=== PATIENT | female | born 1945 | race Caucasian/White ===

== ENCOUNTER 2017-04-06 10:27 | Emergency (ER) | payer MEDICARE, BC ==
[2017-04-06 11:37] LABS: BASOPHILS % (AUTO) 0.5 %; HCT - HEMATOCRIT 32.1 % (37.0-47.0); HGB - HEMOGLOBIN 11.1 g/dL (12.0-16.0); LYMPHOCYTES # (AUTO) 1.2 10^3/uL (1.5-3.5); LYMPHOCYTES % (AUTO) 54.3 %; MEAN CORPUSCULAR HGB CONC 34.6 g/dL (32.0-36.0); MEAN CORPUSCULAR VOLUME 101.1 fL (81.0-99.0); MEAN PLATELET VOLUME 7.5 fL (7.9-10.8); MONOCYTES # (AUTO) 0.1 10^3/uL (0.0-1.0); NEUTROPHILS # (AUTO) 0.9 10^3/uL (1.5-6.6); NEUTROPHILS % (AUTO) 40.2 %; NUCLEATED RED BLOOD CELLS AUTO 0.1 /100WBC; RED BLOOD COUNT 3.17 10^6/uL (4.20-5.40); RED CELL DISTRIBUTION WIDTH 15.1 % (12.0-15.0); UNCORRECTED WHITE BLOOD COUNT 2.3 x10^3/uL; WHITE BLOOD COUNT 2.3 x10^3/uL (4.8-10.8)
[2017-04-06 11:53] LABS: ALBUMIN/GLOBULIN RATIO 1.3 (1.0-2.2); BILIRUBIN,TOTAL 0.7 mg/dL (0.2-1.0); CALCIUM 8.7 mg/dL (8.5-10.3); CREATININE 0.7 mg/dL (0.4-1.0); POTASSIUM 3.9 mmol/L (3.5-5.0); TOTAL PROTEIN 6.8 g/dL (6.7-8.2)
--- NOTE | 2017-04-06 12:18 | CT Preliminary Report ---
Exam: CT Head W/O IMPRESSION: 1. No acute intracranial abnormality evident. No intracranial hemorrhage, space-occupying lesion, or obvious CT signs of acute infarct. Consider brain MRI, if appropriate. 2. Mild generalized atrophy and mild chronic white matter disease. [facility] SITE ID: [id number]
--- NOTE | 2017-04-06 12:20 | CT Report ---
EXAM: CT HEAD EXAM DATE: 04/06/2017 11:36 AM. CLINICAL HISTORY: Right facial droop. COMPARISON: None. TECHNIQUE: Multiaxial CT images were obtained from the foramen magnum to the vertex. IV contrast: Non e. Reformats: Coronal. In accordance with CT protocol optimization, one or more of the following dose reduction techniques w ere utilized for this exam: automated exposure control, adjustment of mA and/or KV based on patient s ize, or use of iterative reconstructive technique. FINDINGS: Parenchyma: No intraparenchymal hemorrhage. No focal mass effect, midline shift, or CT signs of acut e infarct. Mild generalized cerebral volume loss. Mild patchy periventricular and subcortical white m atter hypodensities, compatible with chronic ischemic microangiopathy. Moser-white differentiation is otherwise distinct. Extraaxial Spaces: Mildly prominent compatible with generalized atrophy. No subdural or epidural laila ections identified. Ventricles: Normal in size and position. Sinuses: A single opacified posterior right ethmoid air cell. Otherwise the visualized paranasal sinu ses, mastoid air cells, and middle ear cavities are clear. Bones: No evidence of fracture or calvarial defect. IMPRESSION: 1. No acute intracranial abnormality evident. No intracranial hemorrhage, space-occupying lesion, or obvious CT signs of acute infarct. Consider brain MRI, if appropriate. 2. Mild generalized atrophy and mild chronic white matter disease. [facility] Referring Provider Line: [phone] SITE ID: [id number]
[2017-04-06 12:33] VITALS: BP 162/48
[2017-04-06] MEDS ORDERED: predniSONE 20 MG TABLET PO STA (13:19)
[2017-04-06 13:22] LABS: PLATELET ESTIMATE, MANUAL DECREASED (<130,000) (NORMAL)
[2017-04-06] MEDS ORDERED: predniSONE 20 MG TABLET ONE (13:40)
--- NOTE | 2017-04-06 14:03 | ED Physician Documentation ---
PD HPI FOCAL NEURO - Stated complaint Stated Complaint: JAW PX/NUMBNESS - Chief complaint Chief Complaint: Neuro - History obtained from History obtained from: Patient, Family (sister) - History of Present Illness Timing - onset: How many weeks ago (2) Timing - details: Still present Severity of deficit: Mild Weakness: Face Associated symptoms: Headache Baseline status: positive: A&OX3, ambulatory, indep Similar symptoms before: Has not had sx before - Additional information Additional information: The patient is a pleasant 71-year-old female who complains of "my TMJ." She reports discomfort in her right temporomandibular area for the past 2 weeks, with associated right occipital headaches. She has noticed right facial weakness, including slowness of her right eyelid to blink. This morning she noticed decreased sensation in her right lower lip. She denies any recent fever , difficulty swallowing, change in her vision, or numbness or weakness of her extremities. She denies history of similar symptoms in the past. Review of Systems Constitutional: denies: Fever, Fatigue Eyes: denies: Decreased vision Ears: reports: Ear pain (She denies ear pain currently, but reports having discomfort in her right ear early on with the onset of her symptoms.). denies: Tinnitus/ringing Nose: denies: Congestion Throat: denies: Dental pain / toothache, Sore throat Cardiac: denies: Chest pain / pressure Respiratory: denies: Dyspnea, Cough GI: denies: Abdominal Pain, Nausea, Vomiting : denies: Dysuria Skin: denies: Rash Musculoskeletal: denies: Neck pain, Extremity swelling Neurologic: reports: Focal weakness (right face.), Numbness (Reports decreased sensation of her right face at her lower lip.), Headache (Mild right occipital headache.). denies: Difficulty speaking, Altered mental status PD PAST MEDICAL HISTORY - Past Medical History Past Medical History: Yes Cardiovascular: None Respiratory: None Neuro: None Endocrine/Autoimmune: None Other Past Medical History: tmj hx and mouth teeth problems - Past Surgical History Past Surgical History: Yes General: Appendectomy HEENT: Tonsil/Adenoidectomy - Present Medications Home Medications: Ambulatory Orders Medication Instructions Recorded Confirmed Fexofenadine HCl [[place] Allergy] 0 mg PO DAILY 04/06/17 04/06/17 Prednisone 10 mg PO DAILY #40 tablet 04/06/17 - Allergies Allergies/Adverse Reactions: Allergies Allergy/AdvReac Type Severity Reaction Status Date / Time amoxicillin Allergy Unknown Verified 04/06/17 10:37 latex Allergy Unknown Verified 04/06/17 10:37 paradex Allergy Unknown Uncoded 04/06/17 10:37 - Social History Does the pt smoke?: No Smoking Status: Never smoker Does the pt drink ETOH?: Yes Does the pt have substance abuse?: No - POLST Patient has POLST: No PD ED PE NORMAL - Vitals Vital signs reviewed: Yes (Systolic hypertension.) - General General: Alert and oriented X 3, Well developed/nourished - HEENT HEENT: Atraumatic, PERRL, EOMI, Ears normal, Pharynx benign - Neck Neck: Supple, no meningeal sign, No adenopathy, No JVD - Cardiac Cardiac: RRR - Respiratory Respiratory: No respiratory distress, Clear bilaterally - Abdomen Abdomen: Soft, Non tender - Back Back: No CVA TTP - Derm Derm: No rash - Extremities Extremities: No edema, No calf tenderness / cord - Neuro Neuro: Alert and oriented X 3, Normal speech, Other (There is a mild right facial droop, including involvement of the right forehead musculature. There is barely detectable decrease in light touch sensation on the right side of the lower face. Neurologic exam is otherwise intact and equal bilaterally.) NIHSS - Time Time: 08:30 - Level of Consciousness Level of consciousness: (0) Alert, Keenly responsive LOC Questions: (0) Answers both Q's correct LOC Commands: (0) Performs both correctly - Gaze Best Gaze: (0) Normal - Visual Visual: (0) No loss - Facial Palsy Facial Palsy: (2) Partial paralysis - Motor Arms (both separate) Motor Arm (right): (0) No drift Motor Arm (left): (0) No drift - Motor Legs (both separate) Motor Leg (right): (0) No drift Motor Leg (left): (0) No drift - Limb Ataxia Limb Ataxia: (0) Absent - Sensory Sensory: (0) Normal - Best Language Best Language: (0) No aphasia - Dysarthria Dysarthria: (0) Normal - Extinction and Inattention (formally neg Extinction and inattention: (0) No abnormality - Total Score/Results Total Score/Result: 2 Results - Vitals Vitals: Oxygen O2 Source Room air - Labs Labs: Laboratory Tests 04/06/17 04/06/17 11:26 11:26 WBC 2.3 L RBC 3.17 L Hgb 11.1 L Hct 32.1 L MCV 101.1 H MCH 35.0 H MCHC 34.6 RDW 15.1 H Plt Count 120 L MPV 7.5 L Neut # 0.9 L Lymph # 1.2 L [place] # 0.1 Eos # 0.0 Baso # 0.0 Absolute Nucleated RBC 0.00 Nucleated RBCs 0.1 Manual Slide Review Indicated Platelet Estimate DECREASED (<130,000) RBC Morph Micro Appear 1+ SCHISTOCYTES Sodium 139 Potassium 3.9 Chloride 104 Carbon Dioxide 27 Anion Gap 8.0 BUN 15 Creatinine 0.7 Estimated GFR (MDRD) 82 L Glucose 102 H Calcium 8.7 Total Bilirubin 0.7 AST 22 ALT 18 Alkaline Phosphatase 90 Total Protein 6.8 Albumin 3.9 Globulin 2.9 Albumin/Globulin Ratio 1.3 Lipase 29 - Rads (name of study) Head CT w/o Radiology: Prelim report reviewed, EMP read contemporaneously, See rad report ( 1 1. No acute intracranial abnormality evident. No intracranial hemorrhage, space-occupying lesion, or obvious CT signs of acute infarct. Consider brain MRI if appropriate. 2. Mild generalized atrophy and mild chronic white matter disease.) PD MEDICAL DECISION MAKING - ED course Complexity details: reviewed results, re-evaluated patient, considered differential, d/w patient, d/w family ED course: The patient's presentation is most consistent with Valdivia's palsy. CVA was considered, but is unlikely given the patient's overall presentation, including involvement of the right forehead musculature. A head CT without contrast is unremarkable. Examination of the right ear canal and tympanic membrane on normal. Treatment in the emergency department included administration of prednisone 60 mg orally. She is being discharged with prescription for prednisone. I discussed with her and her sister expected course of illness, outpatient follow- up, as well as potentially worrisome signs or symptoms that should prompt reevaluation in the emergency department. Departure - Departure Disposition: 01 Home, Self Care Clinical Impression: Valdivia's palsy Condition: Stable Instructions: ED [place] Palsy Prescriptions: Prednisone 10 mg PO DAILY #40 tablet Comments: 1. Take prednisone daily as prescribed for a total of 10 days. 2. Tape your eyelid closed before going to sleep, to protect your eye from drying out. 3. Follow-up with your primary physician upon returning to [place]. 4. Return to the emergency department if you develop increasing numbness, weakness, headache, fever, or otherwise worsening symptoms. Discharge Date/Time: 04/06/17 14:25
== END 2017-04-06 14:25 | disposition home or self-care (01) ==
LOC: ED 10:27
DX: G51.0 Bell's palsy (principal); Z87.820 Personal history of traumatic brain injury
CPT/HCPCS: 36415; 70450; 80053; 83690; 85025; 99283; J7512

== ENCOUNTER 2017-10-29 18:59 | Emergency (ER) | payer MEDICARE, BC ==
[2017-10-29 19:50] VITALS: BP 145/73
== END 2017-10-29 20:04 | disposition left against medical advice (07) ==
LOC: ED 18:59
DX: R50.9 Fever, unspecified (principal); R22.9 Localized swelling, mass and lump, unspecified; Z92.21 Personal history of antineoplastic chemotherapy; Z53.21 Procedure and treatment not carried out due to patient leaving prior to being seen by health care provider

== ENCOUNTER 2017-11-02 20:14 | Inpatient (IN) | payer MEDICARE, BC ==
[2017-11-02] MEDS ORDERED: CEFEPIME 2 GM in SODIUM CHLORIDE 0.9% MINIBAG 100 ML IV STA (21:06)
[2017-11-02] MEDS ORDERED: metroNIDAZOLE 500 MG/100 ML 500 MG/100 ML BAG IV ONE (21:06)
[2017-11-02] MEDS ORDERED: VANCOMYCIN INJ 1.5 GM in SODIUM CHLORIDE 0.9% 500 ML IV STA (21:06)
[2017-11-02] MEDS ORDERED: SODIUM CHLORIDE 0.9% 1,000 ML IV ONE (21:06)
--- NOTE | 2017-11-02 21:10 | ED Physician Documentation ---
History of Present Illness - Stated complaint Stated Complaint: FEVER - Chief complaint Chief Complaint: Fever - History obtained from History obtained from: Patient - History of Present Illness Timing: Other (This is a iain 71-year-old woman with history of AML undergoing treatment and she has been neutropenic. She bit her cheek 6 days ago and the next day started developed cheek swelling and fevers. She has had a fever every day and did receive 2 g of cefepime in the [facility] clinic today. The fevers persistent and high. She also has some drainage from her right tunneled catheter. No cough urinary complaints. She did have one episode of diarrhea but it was a single episode that she thinks was related to anxiety and is now gone.) Review of Systems Ten Systems: 10 systems reviewed and negative Constitutional: reports: Fever, Chills, Fatigue Nose: denies: Rhinorrhea / runny nose, Congestion Cardiac: denies: Chest pain / pressure, Palpitations Respiratory: denies: Dyspnea, Cough GI: denies: Abdominal Pain, Nausea, Vomiting PD PAST MEDICAL HISTORY - Past Medical History Cardiovascular: None Respiratory: None Neuro: None Endocrine/Autoimmune: None - Past Surgical History Past Surgical History: Yes General: Appendectomy HEENT: Tonsil/Adenoidectomy - Present Medications Home Medications: Ambulatory Orders Medication Instructions Recorded Confirmed Cholecalciferol (Vitamin D3) 2,000 unit PO DAILY 07/17/17 11/02/17 [Vitamin D3] Acyclovir 400 mg PO DAILY 10/10/17 11/02/17 Midostaurin [Rydapt] 50 mg PO BID MDD Days 8-21 (14 10/25/17 11/02/17 days) Fluconazole 400 mg PO DAILY #30 tablet 10/31/17 11/02/17 Sulfamethoxazole/Trimethoprim 1 each PO BID MDD 800/160 mg tabs 11/01/17 [Sulfamethoxazole-Tmp Ds Tablet] - Allergies Allergies/Adverse Reactions: Allergies Allergy/AdvReac Type Severity Reaction Status Date / Time amoxicillin Allergy Unknown Verified 11/02/17 20:28 latex Allergy Unknown Verified 11/02/17 20:28 levofloxacin Allergy Unknown Verified 11/02/17 20:28 Penicillins Allergy Unknown Verified 11/02/17 20:28 paradex Allergy Unknown Uncoded 11/02/17 20:28 - Social History Does the pt smoke?: No Smoking Status: Never smoker Does the pt drink ETOH?: Yes Does the pt have substance abuse?: No - Family History Family history: reports: Non contributory - POLST Patient has POLST: No PD ED PE NORMAL - Vitals Vital signs reviewed: Yes - General General: Alert and oriented X 3, No acute distress - HEENT HEENT: PERRL, EOMI, Other (She has a little bit of cheek swelling on the right which is asymmetric. She does have some dental issues but I do not elicit any tender teeth but she does have a lot of tenderness kind of in the Buccal fold on the right high up. There is also some skin breakdown where she bit her cheek. There is no trismus or sublingual edema.) - Neck Neck: Supple, no meningeal sign, No bony TTP - Cardiac Cardiac: RRR, No murmur - Respiratory Respiratory: No respiratory distress, Clear bilaterally - Abdomen Abdomen: Normal bowel sounds, Soft, Non tender - Back Back: No CVA TTP, No spinal TTP - Derm Derm: Normal color, Warm and dry, Other (There is a right IJ tunneled catheter which is a little red but without obvious drainage or tenderness.) - Extremities Extremities: No edema, No calf tenderness / cord - Neuro Neuro: Alert and oriented X 3, Normal speech Results - Vitals Vitals: Vital Signs - 24 hr 11/02/17 11/02/17 11/02/17 20:15 22:10 23:04 Temperature 39.6 C H 38.3 C H 37.3 C Heart Rate 95 78 80 Respiratory 18 18 16 Rate Blood Pressure 129/76 112/54 L 142/57 H O2 Saturation 100 96 99 11/03/17 00:08 Temperature 37.4 C Heart Rate 73 Respiratory 16 Rate Blood Pressure 102/63 O2 Saturation 100 Oxygen O2 Source Room air - Labs Labs: Laboratory Tests 11/02/17 11/02/17 11/02/17 21:23 21:23 21:23 WBC 0.2 L* RBC 1.96 L Hgb 6.4 L* Hct 18.8 L* MCV 95.8 MCH 32.8 H MCHC 34.2 RDW 18.7 H Plt Count 21 L* MPV 7.8 L Neut # Not Reportable Lymph # Not Reportable [place] # Not Reportable Eos # Not Reportable Baso # Not Reportable Absolute Nucleated RBC Not Reportable Total Counted 50 Band Neuts % (Manual) 0 Abnorm Lymph % (Manual) 0 Nucleated RBC % Not Reportable Neutrophils # (Manual) 0.0 L* Lymphocytes # (Manual) 0.2 L Monocytes # (Manual) 0.0 Eosinophils # (Manual) 0.0 Basophils # (Manual) 0.0 Differential Comment MANUAL DIFFERENTIAL Platelet Estimate DECREASED (<130,000) Platelet Morphology NORMAL APPEARANCE RBC Morph Micro Appear 2+ [place] Sodium 131 L Potassium 3.6 Chloride 100 L Carbon Dioxide 22 Anion Gap 9.0 BUN 20 Creatinine 0.6 Estimated GFR (MDRD) 98 Glucose 138 H Lactic Acid 1.2 Calcium 8.6 Total Bilirubin 0.4 AST 20 ALT 26 Alkaline Phosphatase 84 Total Protein 6.2 L Albumin 3.1 L Globulin 3.1 Albumin/Globulin Ratio 1.0 Lipase 28 Urine Color Urine Clarity Urine pH Ur Specific [place] Urine Protein Urine Glucose (UA) Urine Ketones Urine Occult Blood Urine Nitrite Urine Bilirubin Urine Urobilinogen Ur Leukocyte Esterase Ur Microscopic Review Urine Culture Comments 11/02/17 23:00 WBC RBC Hgb Hct MCV MCH MCHC RDW Plt Count MPV Neut # Lymph # [place] # Eos # Baso # Absolute Nucleated RBC Total Counted Band Neuts % (Manual) Abnorm Lymph % (Manual) Nucleated RBC % Neutrophils # (Manual) Lymphocytes # (Manual) Monocytes # (Manual) Eosinophils # (Manual) Basophils # (Manual) Differential Comment Platelet Estimate Platelet Morphology RBC Morph Micro Appear Sodium Potassium Chloride Carbon Dioxide Anion Gap BUN Creatinine Estimated GFR (MDRD) Glucose Lactic Acid Calcium Total Bilirubin AST ALT Alkaline Phosphatase Total Protein Albumin Globulin Albumin/Globulin Ratio Lipase Urine Color YELLOW Urine Clarity CLEAR Urine pH 6.0 Ur Specific [place] 1.010 Urine Protein NEGATIVE Urine Glucose (UA) NEGATIVE Urine Ketones NEGATIVE Urine Occult Blood TRACE-LYSE Urine Nitrite NEGATIVE Urine Bilirubin NEGATIVE Urine Urobilinogen 0.2 (NORMAL) Ur Leukocyte Esterase NEGATIVE Ur Microscopic Review NOT INDICATED Urine Culture Comments NOT INDICATED - Rads (name of study) CXR Radiology: EMP read contemporaneously (Large heart, clear lungs) CT Face Radiology: EMP read contemporaneously (No dental source or drainable abscess for the facial cellulitis.) PD MEDICAL DECISION MAKING - ED course ED course: 71-year-old woman undergoing treatment for AML presents with profoundly neutropenic fever. Could be her central line, but she also has a facial infection. CT done to make sure was not a dental thing that would need transfer to the [facility] for inpatient dentistry which it does not seem to be. Given the potential oral source she was administered Flagyl in addition to the usual cefepime and vancomycin. Spoke with Dr. Spicer for admission at 12:10 AM. (11/03/17/) Departure - Departure Disposition: 66 [facility] DC/Xfer Clinical Impression: Febrile neutropenia, Facial cellulitis Condition: Serious
[2017-11-02] MEDS ORDERED: ACETAMINOPHEN 325 MG TABLET PO STA (21:11)
[2017-11-02 21:35] LABS: EOSINOPHILS % (AUTO) 2.2 %; LYMPHOCYTES % (AUTO) 96.6 %; MEAN CORPUSCULAR HEMOGLOBIN 32.8 pg (27.0-31.0); MEAN CORPUSCULAR HGB CONC 34.2 g/dL (32.0-36.0); MEAN CORPUSCULAR VOLUME 95.8 fL (81.0-99.0); MEAN PLATELET VOLUME 7.8 fL (7.9-10.8); NEUTROPHILS % (AUTO) 0.2 %; RED BLOOD COUNT 1.96 10^6/uL (4.20-5.40); RED CELL DISTRIBUTION WIDTH 18.7 % (12.0-15.0)
[2017-11-02 21:43] LABS: HGB - HEMOGLOBIN 6.4 g/dL (12.0-16.0); WHITE BLOOD COUNT 0.2 x10^3/uL (4.8-10.8)
[2017-11-02 21:44] LABS: PLT - PLATELET COUNT 21 10^3/uL (130-450)
[2017-11-02 21:45] LABS: ALBUMIN 3.1 g/dL (3.2-5.5); BILIRUBIN,TOTAL 0.4 mg/dL (0.2-1.0); CALCIUM 8.6 mg/dL (8.5-10.3); CREATININE 0.6 mg/dL (0.4-1.0); TOTAL PROTEIN 6.2 g/dL (6.7-8.2)
[2017-11-02 21:46] LABS: ABNORMAL LYMPHS % (MANUAL) 0 %; BAND NEUTROPHILS % (MANUAL) 0 %
[2017-11-02] MEDS ORDERED: VANCOMYCIN 1 GM VIAL ONE (22:05)
[2017-11-02 22:12] LABS: NEUTROPHILS % (MANUAL) 2 %
[2017-11-02 22:13] LABS: LYMPHOCYTES # (MANUAL) 0.2 10^3/uL (1.5-3.5); LYMPHOCYTES % (MANUAL) 94 %
[2017-11-02 22:15] LABS: DIFFERENTIAL COMMENT MANUAL DIFFERENTIAL; PLATELET ESTIMATE, MANUAL DECREASED (<130,000) (NORMAL); PLATELET MORPHOLOGY NORMAL APPEARANCE (NORMAL)
[2017-11-02] MEDS ORDERED: IOPAMIDOL-300 100 ML VIAL ONE (22:36)
[2017-11-02] MEDS ORDERED: IOPAMIDOL-300 100 ML VIAL IVP ONE ×2 (23:04)
[2017-11-02 23:09] LABS: BILIRUBIN,URINE NEGATIVE (NEGATIVE); GLUCOSE, URINE (UA) NEGATIVE (NEGATIVE); KETONES,URINE (UA) NEGATIVE (NEGATIVE); LEUKOCYTE ESTERASE, URINE NEGATIVE (NEGATIVE); NITRITE,URINE NEGATIVE (NEGATIVE); OCCULT BLOOD,URINE TRACE-LYSE (NEGATIVE); PROTEIN,URINE NEGATIVE (NEGATIVE); UROBILINOGEN,URINE 0.2 (NORMAL) E.U./dL (NORMAL)
[2017-11-02 23:11] LABS: CLARITY,URINE CLEAR (CLEAR)
--- NOTE | 2017-11-02 23:16 | XRAY Report ---
EXAM: CHEST RADIOGRAPHY EXAM DATE: 11/02/2017 11:01 PM. CLINICAL HISTORY: Fever since Sunday. COMPARISON: None. TECHNIQUE: 2 views. FINDINGS: Lungs/Pleura: No focal opacities evident. No pleural effusion. No pneumothorax. Normal volumes. Mediastinum: Large heart. Other: No compression fractures. Right IJ line to the low SVC. IMPRESSION: 1. Large heart. 2. Clear lungs. [facility] Referring Provider Line: [phone] SITE ID: [id number]
--- NOTE | 2017-11-03 00:03 | CT Preliminary Report ---
Exam: CT FACIAL BONES W/ IMPRESSION: 1. Beam Borden artifact at the occlusal plane from metal in the patient's mouth mildly limits evalua tion. 2. Right facial cellulitis. 3. No drainable abscess identified in the facial soft tissues. [facility] SITE ID: [id number]
--- NOTE | 2017-11-03 00:09 | CT Report ---
EXAM: CT MAXILLOFACIAL WITH CONTRAST EXAM DATE: 11/02/2017 11:03 PM. CLINICAL HISTORY: Right facial swelling. COMPARISONS: Brain CT from 04/06/2017. TECHNIQUE: Thin-section axial images were acquired of the face after administration of intravenous co ntrast. Post-processing: Coronal and sagittal reformats. Other: None. IV contrast: Iodinated. In accordance with CT protocol optimization, one or more of the following dose reduction techniques w ere utilized for this exam: automated exposure control, adjustment of mA and/or KV based on patient s ize, or use of iterative reconstructive technique. FINDINGS: Beam hardening artifact from metal in the patient's mouth limits evaluation at the occlusal plane. Orbits:Symmetric and unremarkable. Soft Tissue: There is suggestion of mild fat stranding in the right malar soft tissues, likely repres enting cellulitis. No obvious drainable superimposed fluid collection is seen in this region. The inf ratemporal fossa and parapharyngeal spaces are unremarkable. Bones: No fracture or bone lesion. Temporomandibular Joints: The temporomandibular joints are symmetric and normally located. Sinuses: Moderate mucosal thickening is present in the right maxillary sinus. The mastoid sinuses are not opacified. Glands: The parotid and submandibular glands are unremarkable. Other: Appropriate intravascular enhancement is noted. No acute abnormality seen in the visualized br ain parenchyma. IMPRESSION: 1. Beam hardening artifact at the occlusal plane from metal in the patient's mouth mildly limits eval uation. 2. Right facial cellulitis. 3. No drainable abscess identified in the facial soft tissues. [facility] Referring Provider Line: [phone] SITE ID: [id number]
[2017-11-03] MEDS ORDERED: HYDROmorphone 1 MG/ML CARPUJECT IVP PRN (01:16)
[2017-11-03] MEDS ORDERED: TEMAZEPAM 15 MG CAPSULE PO PRN (01:16)
[2017-11-03] MEDS ORDERED: ONDANSETRON 4 MG/2 ML VIAL IVP PRN (01:16)
[2017-11-03] MEDS ORDERED: diphenhydrAMINE 25 MG CAPSULE PO SCH (01:49)
[2017-11-03] MEDS: ACETAMINOPHEN 325 MG TABLET PO PRN ×3 (02:17→20:20)
--- NOTE | 2017-11-03 04:07 | HISTORY & PHYSICAL EXAMINATION ---
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 She has developed pancytopenia. She was seen in the [facility] here several days ago and received a super pack of platelets in transfusion. She was also noted to be complaining of a bite of her inner cheek on the right, and was started on Bactrim plus Cipro orally. Initially, this swelling of the inner cheek was so severe that swallowing solid food was difficult and she was only drinking Ensure. In these 2-3 days of oral antibiotics, the swelling has already decreased. However, today she developed a fever of 39.6, and presented to the emergency room, and is being admitted for neutropenic fever management. The patient denies any shortness of breath, chest pain, abdominal symptoms such as nausea, vomiting, abdominal pain or diarrhea. She is compliant with all of her medications. PAST MEDICAL HISTORY: AML, on chemotherapy. New pancytopenia. Recent trauma to the inner cheek, on oral antibiotics. Appendectomy. Remote tonsillectomy. REVIEW OF SYSTEMS: A comprehensive review of systems was performed and the pertinent positives are above. FAMILY HISTORY: No inherited diseases. SOCIAL HISTORY: The patient is a nonsmoker, who never smoked, drinks rare alcohol, uses no drugs illegally. ALLERGIES 1. AMOXICILLIN. 2. LATEX. 3. LEVOFLOXACIN. 4. PENICILLIN. 5. PERIDEX ORAL MOUTHWASH. HOME MEDICATIONS 1. Recent Bactrim. 2. Recent Cipro. 3. Rydapt orally. 4. Fluconazole. 5. Vitamin D3. 6. Acyclovir. PHYSICAL EXAMINATION GENERAL: Pale appearing, white female. She is in no acute distress. VITAL SIGNS: Blood pressure 120/50, heart rate 73 in sinus rhythm. Temperature was 39.6 on admission and is now 37.2. Room air saturation 100%. HEENT: Reveals pallor and there is visible asymmetric swelling of the mid right cheek compared to the left. It is mildly indurated to touch and mildly tender. There is no redness exteriorly. The oral cheek mucosa was not examined. NECK: Shows no JVD or cardiomegaly. No lymphadenopathy. CHEST: Clear. HEART: Sounds normal. ABDOMEN: Soft, nontender. No organomegaly. EXTREMITIES: No clubbing, cyanosis or edema. NEUROLOGIC: Grossly intact. LABORATORIES: Sodium 131, potassium 3.6. Normal BUN and creatinine. Lactic acid level 1.2, normal liver tests, normal lipase level. Urinalysis within normal limits. White blood count 0.2 with an absolute neutrophil count of 0.0. Hemoglobin 6.4, platelet count several days ago was 6 and today is 21. Imaging of the head and neck by CT showed right cheek cellulitis. No dental involvement. Chest x-ray: Cardiomegaly present. No pulmonary pathology. IMPRESSION/DIAGNOSES 1. Neutropenic fever. 2. Cheek cellulitis on the right. 3. Acute myelogenous leukemia. 4. Pancytopenia. 5. Cardiomegaly on chest x-ray. 6. Hyponatremia. PLAN: Admit the patient. Begin neutropenic precautions. Blood culture, which has already been sent from the ER. Start empiric antibiotics to cover gram positives, pseudomonas and gram negatives plus anaerobes for the oral jeri. Will begin ciprofloxacin ( this was chosen as her outpatient oral antibiotic after reviewing her levofloxacin allergy with pharmacy, and it has been tolerated by the patient, plus she is also responding with decreased swelling), and also IV clindamycin for anaerobes and gram positives. An alternative regimen is Cefipime and Vancomycin , which was given in the ER earlier. Transfuse the patient 2 units of irradiated packed red blood cells since the hemoglobin is under 7. Watch her CBC daily. Continue monitoring for a fever and if lack of improvement, possibly fungal coverage would need to be added if she has prolonged neutropenia. Obtain an Echo to evaluate the reason for the cardiomegaly on chest x-ray. Start gentle hydration using D5 with normal saline because of the hyponatremia. DEEP VENOUS THROMBOSIS PROPHYLAXIS: None because of risk of bleeding, given her coagulation problem from the thrombocytopenia. CODE STATUS: FULL CODE. ATTESTATION: The patient is expected to be discharged or transferred to another facility within 96 hours: Yes. TD: 11/03/2017 04:06 SARAH
[2017-11-03] MEDS ORDERED: CLINDAMYCIN 900 MG/50 ML 50 ML IV SCH (06:00)
[2017-11-03 06:03] LABS: CALCIUM 8.3 mg/dL (8.5-10.3); CREATININE 0.5 mg/dL (0.4-1.0); MAGNESIUM 1.9 mg/dL (1.7-2.8)
[2017-11-03] MEDS: POLYETHYLENE GLYCOL 3350 17 GM PACKET PO SCH (08:47)
[2017-11-03] MEDS: FAMOTIDINE 20 MG TABLET PO SCH (08:47)
[2017-11-03] MEDS: CEFEPIME 2 GM in SODIUM CHLORIDE 0.9% MINIBAG 100 ML IV SCH ×2 (08:47→16:31)
[2017-11-03] MEDS: SODIUM CHLORIDE FLUSH 0.9% 10 ML SYRINGE IVP SCH ×2 (08:48→16:30)
[2017-11-03] MEDS ORDERED: SULFAMETH/TRIMETH DS 800/160 MG TABLET PO SCH (09:00)
[2017-11-03] MEDS ORDERED: VANCOMYCIN PER PHARMACY 100 GM in SODIUM CHLORIDE 0.9% 250 ML IV SCH (09:00)
[2017-11-03] MEDS: VANCOMYCIN INJ 1 GM in SODIUM CHLORIDE 0.9% 250 ML IV SCH ×2 (11:05→22:01)
[2017-11-03] MEDS: oxyCODONE 5 MG TABLET PO PRN ×2 (11:35→20:19)
[2017-11-03] MEDS ORDERED: CIPROFLOXACIN 400 MG/200 ML 200 ML IV SCH (12:00)
[2017-11-03 13:43] LABS: EOSINOPHILS % (AUTO) 0.1 %; HGB - HEMOGLOBIN 7.5 g/dL (12.0-16.0); LYMPHOCYTES # (AUTO) 0.3 10^3/uL (1.5-3.5); LYMPHOCYTES % (AUTO) 94.1 %; MEAN CORPUSCULAR HEMOGLOBIN 32.2 pg (27.0-31.0); MEAN CORPUSCULAR HGB CONC 35.2 g/dL (32.0-36.0); MEAN CORPUSCULAR VOLUME 91.6 fL (81.0-99.0); MEAN PLATELET VOLUME 8.5 fL (7.9-10.8); MONOCYTES % (AUTO) 5.3 %; NEUTROPHILS % (AUTO) 0.5 %; RED BLOOD COUNT 2.33 10^6/uL (4.20-5.40); RED CELL DISTRIBUTION WIDTH 18.2 % (12.0-15.0)
[2017-11-03 14:14] LABS: PLATELET ESTIMATE, MANUAL DECREASED (<130,000) (NORMAL); PLATELET MORPHOLOGY NORMAL APPEARANCE (NORMAL)
[2017-11-03 14:18] LABS: PLT - PLATELET COUNT 17 10^3/uL (130-450); WHITE BLOOD COUNT 0.3 x10^3/uL (4.8-10.8)
[2017-11-03] MEDS: RYDAPT 25 MG PO SCH (16:23)
[2017-11-04] MEDS: CEFEPIME 2 GM in SODIUM CHLORIDE 0.9% MINIBAG 100 ML IV SCH ×3 (00:13→16:27)
[2017-11-04] MEDS: oxyCODONE 5 MG TABLET PO PRN ×5 (00:20→21:14)
[2017-11-04] MEDS: ACETAMINOPHEN 325 MG TABLET PO PRN ×5 (00:20→21:14)
[2017-11-04] MEDS: SODIUM CHLORIDE FLUSH 0.9% 10 ML SYRINGE IVP SCH ×3 (01:17→16:27)
--- NOTE | 2017-11-04 08:25 | PROVIDER PROGRESS NOTE ---
Assessment/Plan - Problem List (1) Cellulitis of right internal cheek Assessment/Plan: Upon exam, the patient's right cheek is swollen and sore as per patient report. She remembers accidentally biting her cheek sometime early last week. Per chart review, this was noted in her latest MAC/oncology progress note by Marleen MCCONNELL. She was started on Bactrim and Cipro for this but, unfortunately, developed a neutropenic fever the evening before this admission. Blood cultures were drawn and are pending. Plan: Monitor pain and inspect right cheek daily. (2) Pancytopenia Assessment/Plan: Patient is expected to have pancytopenia as a consequence of her current chemotherapy which is PO midostaurin (Rydapt) daily. We are monitoring WBC count/neutrophil counts daily. Planning to contact the MAC clinic on Sunday with updates. Plan: Continue current treatment of bacteremia and right cheek cellulitis. (3) Febrile neutropenia Assessment/Plan: Patient had a temp max of 39.6 orally after arriving to the ED that has continued through today. Temperature today was 37.6, and patient denies symptoms of chills or sweats. Plan: Continue treatment of underlying infection, treat fevers with tylenol, monitor labs, and await final sensitivities. 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 Chamorro/Dr. Whittaker. 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 She has completed one induction therapy from 08/22/2017-08/28, and was to follow up with Dr. Whittaker on 10/24/2017. She is also working on a donor transplant (allontransplant), although this is still being worked on. She continues on oral treatment of Rydapt daily as per oncologist. Plan: Monitor neutrophil counts, WBC and clinical well being. Planning to update [facility] clinic of this admission on Sunday. - Current Meds Current Meds: Current Medications Generic Name Dose Route Start Last Admin Trade Name Freq PRN Reason Stop Dose Admin Acetaminophen 650 mg 11/03/17 01:16 11/04/17 05:24 Tylenol PO 650 mg Q4HR PRN Administration Pain or Fever > 38C (100.4F) Famotidine 20 mg 11/03/17 09:00 11/03/17 08:47 Pepcid PO 20 mg DAILY ESTELITA Administration Cefepime HCl 2 gm/ Sodium 100 mls @ 200 mls/hr 11/03/17 09:00 11/04/17 00:45 Chloride IV Infused Q8H ESTELITA Infusion Vancomycin HCl 1 gm/ Sodium 250 mls @ 167 mls/hr 11/03/17 10:00 11/03/17 23: 50 Chloride IV Infused Q12H ESTELITA Infusion Oxycodone HCl 5 mg 11/03/17 11:26 11/04/17 05:25 Roxicodone PO 5 mg Q4HR PRN Administration PAIN Rydapt(Midosaurin) 2 each 11/03/17 09:00 11/03/17 16:23 25 Mg Capsules PO 2 each DAILY ESTELITA Administration Polyethylene Glycol 17 gm 11/03/17 09:00 11/03/17 08:47 Miralax PO Not Given DAILY ESTELITA Sodium Chloride 10 ml 11/03/17 09:00 11/04/17 01:17 Normal Saline Flush 0.9% IVP 10 ml 0100,[id number],1700 ESTELITA Administration - Lab Result Lab results reviewed: Yes Fish Bone Diagrams: 11/03/17 13:30 11/03/17 05:45 - EKG Results EKG Interpreted Independently: Yes EKG Comparison: Unchanged from prior EKG - Diagnostic Imaging Results Diagnostic Imaging Results: Prelim report reviewed - Additional Planning Condition/Complexity: Stable My Orders: My Active Orders 11/03/17 09:00 Cefepime 2 gm Sodium Chloride 0.9% Minibag [Normal Saline 0.9% Minibag] 100 ml IV Q8H Patient Own Med [Patient Own Medication] 2 each PO DAILY 11/03/17 10:00 Vancomycin Inj [Vancomycin] 1 gm Sodium Chloride 0.9% [Normal Saline 0.9%] 250 ml IV Q12H 11/03/17 11:26 oxyCODONE [Roxicodone] 5 mg PO Q4HR PRN 11/04/17 09:30 VANCOMYCIN TROUGH [CHEM] Timed Consult/Specialty: Oncology Plan Discussed with:: Patient Time Spent: 15-30 minutes Subjective - Subjective Patient Reports: Feeling Better Nursing Reports: No Complaints Objective Vital Signs: Vital Signs - 24 hr 11/03/17 11/03/17 11/03/17 09:22 09:27 09:49 Temperature 37.2 C 37.2 C 37.1 C Heart Rate 69 69 67 Heart Rate [ Brachial] Respiratory 16 16 16 Rate Blood Pressure 130/45 L 130/45 L 110/50 L Blood Pressure [Brachial artery] O2 Saturation 11/03/17 11/03/17 11/03/17 12:09 15:46 16:30 Temperature 37.7 C H 38.0 C H 37.7 C H Heart Rate 78 Heart Rate [ 75 Brachial] Respiratory 18 16 Rate Blood Pressure 147/55 H Blood Pressure 126/48 L [Brachial artery] O2 Saturation 98 11/03/17 11/03/17 11/03/17 20:20 21:25 22:15 Temperature 38.5 C H 37.7 C H 37.4 C Heart Rate Heart Rate [ Brachial] Respiratory Rate Blood Pressure Blood Pressure [Brachial artery] O2 Saturation 11/03/17 11/03/17 11/04/17 23:30 23:37 00:30 Temperature 36.9 C 36.7 C Heart Rate Heart Rate [ 61 Brachial] Respiratory 18 Rate Blood Pressure Blood Pressure 121/57 L [Brachial artery] O2 Saturation 94 11/04/17 07:26 Temperature 37.6 C H Heart Rate Heart Rate [ 63 Brachial] Respiratory 18 Rate Blood Pressure Blood Pressure 109/52 L [Brachial artery] O2 Saturation 94 Oxygen O2 Source Room air I&O (Last 24 Hrs): Intake and Output Totals x24h 11/02/17 11/03/17 11/04/17 23:59 23:59 23:59 Intake Total 2542 400 Balance 2542 400 General: Alert, Oriented x3, Cooperative, Mild distress HEENT: Atraumatic, PERRLA, Mucous membr. moist/pink, Other (Patient has generalized swelling to right cheek that appears stable without erythema or warmth, although this has been very tender.) Neck: Supple, No JVD, No thyromegaly Lymphatic: no adenopathy Neuro: Alert, CN 2-12 Grossly Intact, Oriented Times 3 Cardiovascular: Regular rate, Normal S1, Normal S2, No murmurs Respiratory: Chest non-tender, No respiratory distress, Breath sounds nml Abdomen: Normal bowel sounds, Soft, No tenderness, No masses Extremities: No clubbing, No edema, No tenderness/swelling Skin: No rashes, No breakdown, No significant lesion - Results Results: Laboratory Results WBC 0.3 x10^3/uL (4.8-10.8) L* 11/03/17 13:30 RBC 2.33 10^6/uL (4.20-5.40) L 11/03/17 13:30 Hgb 7.5 g/dL (12.0-16.0) L 11/03/17 13:30 Hct 21.3 % (37.0-47.0) L 11/03/17 13:30 MCV 91.6 fL (81.0-99.0) 11/03/17 13:30 MCH 32.2 pg (27.0-31.0) H 11/03/17 13:30 MCHC 35.2 g/dL (32.0-36.0) 11/03/17 13: RDW 18.2 % (12.0-15.0) H 11/03/17 13:30 Plt Count 17 10^3/uL (130-450) L* 11/03/17 13:30 MPV 8.5 fL (7.9-10.8) 11/03/17 13:30 Neut # 0.0 10^3/uL (1.5-6.6) L* 11/03/17 13:30 Lymph # 0.3 10^3/uL (1.5-3.5) L 11/03/17 13:30 [place] # 0.0 10^3/uL (0.0-1.0) 11/03/17 13:30 Eos # 0.0 10^3/uL (0.0-0.7) 11/03/17 13:30 Baso # 0.0 10^3/uL (0.0-0.1) 11/03/17 13:30 Absolute Nucleated RBC 0.00 x10^3/uL 11/03/17 13:30 Total Counted 50 11/02/17 21:23 Band Neuts % (Manual) 0 % (0-10) 11/02/17 21:23 Abnorm Lymph % (Manual) 0 % 11/02/17 21:23 Nucleated RBC % 0.2 /100WBC 11/03/17 13:30 Neutrophils # (Manual) 0.0 10^3/uL (1.5-6.6) L* 11/02/17 21: Lymphocytes # (Manual) 0.2 10^3/uL (1.5-3.5) L 11/02/17 21: Monocytes # (Manual) 0.0 10^3/uL (0.0-1.0) 11/02/17: Eosinophils # (Manual) 0.0 10^3/uL (0-0.7) 11/02/17: Basophils # (Manual) 0.0 10^3/uL (0-0.1) 11/02/17: Differential Comment MANUAL DIFFERENTIAL 11/02/17: Manual Slide Review Indicated 11/03/17 13:30 WBC Morphology (NORMAL) 11/03/17 13:30 Platelet Estimate DECREASED (<130,000) (NORMAL) 11/03/17 13:30 Platelet Morphology NORMAL APPEARANCE (NORMAL) 11/03/17 13:30 RBC Morph Micro Appear 3+ ANISOCYTOSIS (NORMAL) 2+ ROULEAUX (NORMAL) 11/02 21:23 RBC Morph Micro Appear 2+ ANISOCYTOSIS (NORMAL) 1+ HYPOCHROMASIA (NORMAL) 1 + TEARDROP CELLS (NORMAL) 1+ OVALOCYTES (NORMAL) 1+ SPHEROCYTES (NORMAL) 13:30 RBC Morph Micro Appear 2+ ANISOCYTOSIS (NORMAL) 1+ HYPOCHROMASIA (NORMAL) 1 + TEARDROP CELLS (NORMAL) 1+ OVALOCYTES (NORMAL) 1+ SPHEROCYTES (NORMAL) 13:30 RBC Morph Micro Appear 2+ ANISOCYTOSIS (NORMAL) 1+ HYPOCHROMASIA (NORMAL) 1 + TEARDROP CELLS (NORMAL) 1+ OVALOCYTES (NORMAL) 1+ SPHEROCYTES (NORMAL) 13:30 RBC Morph Micro Appear 2+ ANISOCYTOSIS (NORMAL) 1+ HYPOCHROMASIA (NORMAL) 1 + TEARDROP CELLS (NORMAL) 1+ OVALOCYTES (NORMAL) 1+ SPHEROCYTES (NORMAL) 13:30 RBC Morph Micro Appear 2+ ANISOCYTOSIS (NORMAL) 1+ HYPOCHROMASIA (NORMAL) 1 + TEARDROP CELLS (NORMAL) 1+ OVALOCYTES (NORMAL) 1+ SPHEROCYTES (NORMAL) 13:30 Sodium 136 mmol/L (135-145) 11/03/17 05:45 Potassium 3.5 mmol/L (3.5-5.0) 11/03/17 05:45 Chloride 106 mmol/L (101-111) 11/03/17 05:45 Carbon Dioxide 23 mmol/L (21-32) 11/03/17 05:45 Anion Gap 7.0 (6-13) 11/03/17 05:45 BUN 11 mg/dL (6-20) 11/03/17 05:45 Creatinine 0.5 mg/dL (0.4-1.0) 11/03/17 05:45 Estimated GFR (MDRD) 121 (>89) 11/03/17 05:45 Glucose 114 mg/dL (70-100) H 11/03/17 05:45 Lactic Acid 1.2 mmol/L (0.5-2.2) 11/02/17 21:23 Calcium 8.3 mg/dL (8.5-10.3) L 11/03/17 05:45 Magnesium 1.9 mg/dL (1.7-2.8) 11/03/17 05:45 Total Bilirubin 0.4 mg/dL (0.2-1.0) 11/02/17 21:23 AST 20 IU/L (10-42) 11/02/17 21:23 ALT 26 IU/L (10-60) 11/02/17 21:23 Alkaline Phosphatase 84 IU/L (42-121) 11/02/17 21:23 Total Protein 6.2 g/dL (6.7-8.2) L 11/02/17 21:23 Albumin 3.1 g/dL (3.2-5.5) L 11/02/17 21:23 Globulin 3.1 g/dL (2.1-4.2) 11/02/17 21:23 Albumin/Globulin Ratio 1.0 (1.0-2.2) 11/02/17 21:23 Lipase 28 U/L (22-51) 11/02/17 21:23 Urine Color YELLOW 11/02/17 23:00 Urine Clarity CLEAR (CLEAR) 11/02/17 23:00 Urine pH 6.0 PH (5.0-7.5) 11/02/17 23:00 Ur Specific [place] 1.010 (1.002-1.030) 11/02/17 23:00 Urine Protein NEGATIVE mg/dL (NEGATIVE) 11/02/17 23:00 Urine Glucose (UA) NEGATIVE mg/dL (NEGATIVE) 11/02/17 23:00 Urine Ketones NEGATIVE mg/dL (NEGATIVE) 11/02/17 23:00 Urine Occult Blood TRACE-LYSE (NEGATIVE) 11/02/17 23:00 Urine Nitrite NEGATIVE (NEGATIVE) 11/02/17 23:00 Urine Bilirubin NEGATIVE (NEGATIVE) 11/02/17 23:00 Urine Urobilinogen 0.2 (NORMAL) E.U./dL (NORMAL) 11/02/17 23:00 Ur Leukocyte Esterase NEGATIVE (NEGATIVE) 11/02/17 23:00 Ur Microscopic Review NOT INDICATED 11/02/17 23:00 Urine Culture Comments NOT INDICATED 11/02/17 23:00 Blood Type O POSITIVE 11/02/17 03:50 Antibody Screen NEGATIVE 11/02/17 03:50 Crossmatch IS Only See Detail 11/02/17 03:50
--- NOTE | 2017-11-04 08:26 | PROVIDER PROGRESS NOTE ---
Assessment/Plan - Problem List (1) Acute myelogenous leukemia Qualifiers: Leukemia Active/Remission status: without remission Qualified Code(s): C92.00 - Acute myeloblastic leukemia, not having achieved remission Assessment/Plan: The patient is under the care of our [facility] oncology clinic, Dr. Chamorro/Dr. Whittaker. 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 She has completed one induction therapy from 08/22/2017-08/28, and was to follow up with Dr. Whittaker on 10/24/2017. She is also working on a donor transplant (allontransplant), although this is still being worked on. She continues on oral treatment of Rydapt daily as per oncologist. If neutrophil counts remain "0", I suspect her treatment may be suspended. Labs were ordered today, later than usual to accommodate patient's wish of having the nurse draw blood samples from her central line rather than being poked by the solar lab technician- and are pending at the time of this note. Plan: Monitor neutrophil counts, WBC and clinical well being. Planning to update [facility] clinic of this admission on Sunday. (2) Cellulitis of right internal cheek Assessment/Plan: Upon exam, the patient's right cheek is swollen and sore as per patient report. She remembers accidentally biting her cheek sometime early last week. Per chart review, this was noted in her latest MAC/oncology progress note by Marleen MCCONNELL. She was started on Bactrim and Cipro for this but, unfortunately, developed a neutropenic fever the evening before this admission. Blood cultures were drawn and are pending. Plan: Monitor pain and inspect right cheek daily. (3) Febrile neutropenia Assessment/Plan: Patient had a temp max of 39.6 orally after arriving to the ED that has continued through today. Temperature today was 37.6, and patient denies symptoms of chills or sweats. Patient is encouraged to use ice and heat for soothing right cheek pain. Plan: Continue treatment of underlying infection, treat fevers with tylenol, monitor labs, and await final sensitivities. (4) Pancytopenia Assessment/Plan: Patient is expected to have pancytopenia as a consequence of her current chemotherapy which is PO midostaurin (Rydapt) daily. We are monitoring WBC count/neutrophil counts daily. Planning to contact the [facility] clinic on Sunday with updates. Plan: Continue current treatment of bacteremia and right cheek cellulitis. - Current Meds Current Meds: Current Medications Generic Name Dose Route Start Last Admin Trade Name Freq PRN Reason Stop Dose Admin Acetaminophen 650 mg 11/03/17 01:16 11/04/17 05:24 Tylenol PO 650 mg Q4HR PRN Administration Pain or Fever > 38C (100.4F) Famotidine 20 mg 11/03/17 09:00 11/03/17 08:47 Pepcid PO 20 mg DAILY ESTELITA Administration Cefepime HCl 2 gm/ Sodium 100 mls @ 200 mls/hr 11/03/17 09:00 11/04/17 00:45 Chloride IV Infused Q8H ESTELITA Infusion Vancomycin HCl 1 gm/ Sodium 250 mls @ 167 mls/hr 11/03/17 10:00 11/03/17 23: 50 Chloride IV Infused Q12H ESTELITA Infusion Oxycodone HCl 5 mg 11/03/17 11:26 11/04/17 05:25 Roxicodone PO 5 mg Q4HR PRN Administration PAIN Rydapt(Midosaurin) 2 each 11/03/17 09:00 11/03/17 16:23 25 Mg Capsules PO 2 each DAILY ESTELITA Administration Polyethylene Glycol 17 gm 11/03/17 09:00 11/03/17 08:47 Miralax PO Not Given DAILY ESTELITA Sodium Chloride 10 ml 11/03/17 09:00 11/04/17 01:17 Normal Saline Flush 0.9% IVP 10 ml 0100,0900,1700 ESTELITA Administration - Lab Result Lab results reviewed: Yes Fish Bone Diagrams: 11/03/17 13:30 11/03/17 05:45 - EKG Results EKG Interpreted Independently: Yes - Diagnostic Imaging Results Diagnostic Imaging Results: Final report reviewed - Additional Planning Condition/Complexity: Stable My Orders: My Active Orders 11/03/17 09:00 Cefepime 2 gm Sodium Chloride 0.9% Minibag [Normal Saline 0.9% Minibag] 100 ml IV Q8H Patient Own Med [Patient Own Medication] 2 each PO DAILY 11/03/17 10:00 Vancomycin Inj [Vancomycin] 1 gm Sodium Chloride 0.9% [Normal Saline 0.9%] 250 ml IV Q12H 11/03/17 11:26 oxyCODONE [Roxicodone] 5 mg PO Q4HR PRN 11/04/17 09:30 VANCOMYCIN TROUGH [CHEM] Timed Consult/Specialty: Oncology, Surgery (General surgery was called d/t the possiblity of needing to remove the patient's upper right chest port. We will continue to monitor and use this as a last resort in the event that the port begins to look infected. The source of infection is likely her accidentally biting the inside of her cheek, that has now presented as +bacteremia. We are awaiting sensitivites, and will contact [facility] oncology on Sunday.) Plan Discussed with:: Patient, Family Time Spent: 31-60 minutes Subjective - Subjective Patient Reports: No Complaints Nursing Reports: No Complaints, Pain (Pain has been better controlled with the addition of oxycodone. The patient was updated of plans to contact general surgery, Dr. Richardson, to discuss options re: central line removal vs. leaving it in place.) Objective Vital Signs: Vital Signs - 24 hr 11/03/17 11/03/17 11/03/17 09:22 09:27 09:49 Temperature 37.2 C 37.2 C 37.1 C Heart Rate 69 69 67 Heart Rate [ Brachial] Respiratory 16 16 16 Rate Blood Pressure 130/45 L 130/45 L 110/50 L Blood Pressure [Brachial artery] O2 Saturation 11/03/17 11/03/17 11/03/17 12:09 15:46 16:30 Temperature 37.7 C H 38.0 C H 37.7 C H Heart Rate 78 Heart Rate [ 75 Brachial] Respiratory 18 16 Rate Blood Pressure 147/55 H Blood Pressure 126/48 L [Brachial artery] O2 Saturation 98 11/03/17 11/03/17 11/03/17 20:20 21:25 22:15 Temperature 38.5 C H 37.7 C H 37.4 C Heart Rate Heart Rate [ Brachial] Respiratory Rate Blood Pressure Blood Pressure [Brachial artery] O2 Saturation 11/03/17 11/03/17 11/04/17 23:30 23:37 00:30 Temperature 36.9 C 36.7 C Heart Rate Heart Rate [ 61 Brachial] Respiratory 18 Rate Blood Pressure Blood Pressure 121/57 L [Brachial artery] O2 Saturation 94 11/04/17 07:26 Temperature 37.6 C H Heart Rate Heart Rate [ 63 Brachial] Respiratory 18 Rate Blood Pressure Blood Pressure 109/52 L [Brachial artery] O2 Saturation 94 Oxygen O2 Source Room air I&O (Last 24 Hrs): Intake and Output Totals x24h 11/02/17 11/03/17 11/04/17 23:59 23:59 23:59 Intake Total 2542 400 Balance 2542 400 General: Alert, Oriented x3, Cooperative HEENT: Atraumatic, PERRLA, Mucous membr. moist/pink, Other (Increased swelling to right cheek greater than yesterday's exam. Pain. No open areas are appreciated in oral cavity. No erythema or warmth on skin surface of cheek.) Neck: Supple, No JVD Lymphatic: no adenopathy Neuro: Alert, CN 2-12 Grossly Intact, Oriented Times 3 Cardiovascular: Regular rate, Normal S1, Normal S2 Respiratory: Chest non-tender, No respiratory distress, Breath sounds nml Abdomen: Normal bowel sounds, Soft, No tenderness, No masses Extremities: No clubbing, No edema, No tenderness/swelling Skin: No rashes, No breakdown, No significant lesion - Results Results: Laboratory Results WBC 0.3 x10^3/uL (4.8-10.8) L* 11/03/17 13:30 RBC 2.33 10^6/uL (4.20-5.40) L 11/03/17 13:30 Hgb 7.5 g/dL (12.0-16.0) L 11/03/17 13:30 Hct 21.3 % (37.0-47.0) L 11/03/17 13:30 MCV 91.6 fL (81.0-99.0) 11/03/17 13:30 MCH 32.2 pg (27.0-31.0) H 11/03/17 13:30 MCHC 35.2 g/dL (32.0-36.0) 11/03/17 13:30 RDW 18.2 % (12.0-15.0) H 11/03/17 13:30 Plt Count 17 10^3/uL (130-450) L* 11/03/17 13:30 MPV 8.5 fL (7.9-10.8) 11/03/17 13:30 Neut # 0.0 10^3/uL (1.5-6.6) L* 11/03/17 13:30 Lymph # 0.3 10^3/uL (1.5-3.5) L 11/03/17 13:30 [place] # 0.0 10^3/uL (0.0-1.0) 11/03/17 13:30 Eos # 0.0 10^3/uL (0.0-0.7) 11/03/17 13: Baso # 0.0 10^3/uL (0.0-0.1) 11/03/17 13: Absolute Nucleated RBC 0.00 x10^3/uL 11/03/17 13: Total Counted 50 11/02/17 21: Band Neuts % (Manual) 0 % (0-10) 11/02/17 21: Abnorm Lymph % (Manual) 0 % 11/02/17: Nucleated RBC % 0.2 /100WBC 11/03/17: Neutrophils # (Manual) 0.0 10^3/uL (1.5-6.6) L* 11/02/17 21: Lymphocytes # (Manual) 0.2 10^3/uL (1.5-3.5) L 11/02/17 21: Monocytes # (Manual) 0.0 10^3/uL (0.0-1.0) 11/02/17 21: Eosinophils # (Manual) 0.0 10^3/uL (0-0.7) 11/02/17 21: Basophils # (Manual) 0.0 10^3/uL (0-0.1) 11/02/17 21: Differential Comment MANUAL DIFFERENTIAL 11/02/17 21: Manual Slide Review Indicated 11/03/17 13:30 WBC Morphology (NORMAL) 11/03/17: Platelet Estimate DECREASED (<130,000) (NORMAL) 11/03/17: Platelet Morphology NORMAL APPEARANCE (NORMAL) 11/03/17 13: RBC Morph Micro Appear 3+ ANISOCYTOSIS (NORMAL) 2+ ROULEAUX (NORMAL) 11/02 21: RBC Morph Micro Appear 2+ ANISOCYTOSIS (NORMAL) 1+ HYPOCHROMASIA (NORMAL) 1 + TEARDROP CELLS (NORMAL) 1+ OVALOCYTES (NORMAL) 1+ SPHEROCYTES (NORMAL) 13:30 RBC Morph Micro Appear 2+ ANISOCYTOSIS (NORMAL) 1+ HYPOCHROMASIA (NORMAL) 1 + TEARDROP CELLS (NORMAL) 1+ OVALOCYTES (NORMAL) 1+ SPHEROCYTES (NORMAL) 13:30 RBC Morph Micro Appear 2+ ANISOCYTOSIS (NORMAL) 1+ HYPOCHROMASIA (NORMAL) 1 + TEARDROP CELLS (NORMAL) 1+ OVALOCYTES (NORMAL) 1+ SPHEROCYTES (NORMAL) 13:30 RBC Morph Micro Appear 2+ ANISOCYTOSIS (NORMAL) 1+ HYPOCHROMASIA (NORMAL) 1 + TEARDROP CELLS (NORMAL) 1+ OVALOCYTES (NORMAL) 1+ SPHEROCYTES (NORMAL) 13:30 RBC Morph Micro Appear 2+ ANISOCYTOSIS (NORMAL) 1+ HYPOCHROMASIA (NORMAL) 1 + TEARDROP CELLS (NORMAL) 1+ OVALOCYTES (NORMAL) 1+ SPHEROCYTES (NORMAL) 13:30 Sodium 136 mmol/L (135-145) 11/03/17 05:45 Potassium 3.5 mmol/L (3.5-5.0) 11/03/17 05:45 Chloride 106 mmol/L (101-111) 11/03/17 05:45 Carbon Dioxide 23 mmol/L (21-32) 11/03/17 05:45 Anion Gap 7.0 (6-13) 11/03/17 05:45 BUN 11 mg/dL (6-20) 11/03/17 05:45 Creatinine 0.5 mg/dL (0.4-1.0) 11/03/17 05:45 Estimated GFR (MDRD) 121 (>89) 11/03/17 05:45 Glucose 114 mg/dL (70-100) H 11/03/17 05:45 Lactic Acid 1.2 mmol/L (0.5-2.2) 11/02/17 21:23 Calcium 8.3 mg/dL (8.5-10.3) L 11/03/17 05:45 Magnesium 1.9 mg/dL (1.7-2.8) 11/03/17 05:45 Total Bilirubin 0.4 mg/dL (0.2-1.0) 11/02/17 21:23 AST 20 IU/L (10-42) 11/02/17 21:23 ALT 26 IU/L (10-60) 11/02/17 21:23 Alkaline Phosphatase 84 IU/L (42-121) 11/02/17 21: Total Protein 6.2 g/dL (6.7-8.2) L 11/02/17 21: Albumin 3.1 g/dL (3.2-5.5) L 11/02/17: Globulin 3.1 g/dL (2.1-4.2) 11/02/17 21: Albumin/Globulin Ratio 1.0 (1.0-2.2) 11/02/17: Lipase 28 U/L (22-51) 11/02/17 21: Urine Color YELLOW 11/02/17 23:00 Urine Clarity CLEAR (CLEAR) 11/02/17 23:00 Urine pH 6.0 PH (5.0-7.5) 11/02/17 23:00 Ur Specific [place] 1.010 (1.002-1.030) 11/02/17 23:00 Urine Protein NEGATIVE mg/dL (NEGATIVE) 11/02/17 23:00 Urine Glucose (UA) NEGATIVE mg/dL (NEGATIVE) 11/02/17 23:00 Urine Ketones NEGATIVE mg/dL (NEGATIVE) 11/02/17 23:00 Urine Occult Blood TRACE-LYSE (NEGATIVE) 11/02/17 23:00 Urine Nitrite NEGATIVE (NEGATIVE) 11/02/17 23:00 Urine Bilirubin NEGATIVE (NEGATIVE) 11/02/17 23:00 Urine Urobilinogen 0.2 (NORMAL) E.U./dL (NORMAL) 11/02/17 23:00 Ur Leukocyte Esterase NEGATIVE (NEGATIVE) 11/02/17 23:00 Ur Microscopic Review NOT INDICATED 11/02/17 23:00 Urine Culture Comments NOT INDICATED 11/02/17 23:00 Blood Type O POSITIVE 11/02/17 03:50 Antibody Screen NEGATIVE 11/02/17 03:50 Crossmatch IS Only See Detail 11/02/17 03:50
[2017-11-04] MEDS: FAMOTIDINE 20 MG TABLET PO SCH (09:01)
[2017-11-04] MEDS: RYDAPT 25 MG PO SCH ×2 (09:01→21:54)
[2017-11-04] MEDS: POLYETHYLENE GLYCOL 3350 17 GM PACKET PO SCH (09:03)
[2017-11-04 10:19] LABS: VANCOMYCIN,TROUGH 7.3 ug/mL (5.0-15.0)
[2017-11-04 18:14] LABS: BASOPHILS % (AUTO) 0.1 %; EOSINOPHILS % (AUTO) 0.8 %; HGB - HEMOGLOBIN 7.7 g/dL (12.0-16.0); LYMPHOCYTES # (AUTO) 0.3 10^3/uL (1.5-3.5); LYMPHOCYTES % (AUTO) 80.6 %; MEAN CORPUSCULAR HEMOGLOBIN 32.4 pg (27.0-31.0); MEAN CORPUSCULAR HGB CONC 33.9 g/dL (32.0-36.0); MEAN CORPUSCULAR VOLUME 95.4 fL (81.0-99.0); MEAN PLATELET VOLUME 8.4 fL (7.9-10.8); MONOCYTES # (AUTO) 0.1 10^3/uL (0.0-1.0); MONOCYTES % (AUTO) 16.7 %; NEUTROPHILS % (AUTO) 1.8 %; PLT - PLATELET COUNT 44 10^3/uL (130-450); RED BLOOD COUNT 2.37 10^6/uL (4.20-5.40); RED CELL DISTRIBUTION WIDTH 18.6 % (12.0-15.0)
[2017-11-04 18:18] LABS: WHITE BLOOD COUNT 0.4 x10^3/uL (4.8-10.8)
[2017-11-04 18:22] LABS: ALBUMIN 2.8 g/dL (3.2-5.5); ALBUMIN/GLOBULIN RATIO 0.8 (1.0-2.2); BILIRUBIN,TOTAL 0.2 mg/dL (0.2-1.0); CALCIUM 8.7 mg/dL (8.5-10.3); CREATININE 0.6 mg/dL (0.4-1.0); TOTAL PROTEIN 6.1 g/dL (6.7-8.2)
[2017-11-04 19:15] LABS: PLATELET ESTIMATE, MANUAL DECREASED (<130,000) (NORMAL); PLATELET MORPHOLOGY NORMAL APPEARANCE (NORMAL)
[2017-11-05] MEDS: SODIUM CHLORIDE FLUSH 0.9% 10 ML SYRINGE IVP SCH ×3 (00:36→17:06)
[2017-11-05] MEDS: CEFEPIME 2 GM in SODIUM CHLORIDE 0.9% MINIBAG 100 ML IV SCH ×3 (00:36→17:06)
[2017-11-05] MEDS: SODIUM CHLORIDE FLUSH 0.9% 10 ML SYRINGE IVP PRN ×6 (01:26→22:40)
[2017-11-05] MEDS: ACETAMINOPHEN 325 MG TABLET PO PRN ×5 (01:33→21:20)
[2017-11-05] MEDS: oxyCODONE 5 MG TABLET PO PRN ×5 (01:33→21:20)
[2017-11-05] MEDS ORDERED: SODIUM CHLORIDE FLUSH 0.9% 10 ML SYRINGE IVP PRN (02:45)
[2017-11-05 06:35] LABS: BASOPHILS % (AUTO) 0.1 %; LYMPHOCYTES # (AUTO) 0.4 10^3/uL (1.5-3.5); LYMPHOCYTES % (AUTO) 77.3 %; MEAN CORPUSCULAR HEMOGLOBIN 31.4 pg (27.0-31.0); MEAN CORPUSCULAR HGB CONC 34.3 g/dL (32.0-36.0); MEAN CORPUSCULAR VOLUME 91.6 fL (81.0-99.0); MEAN PLATELET VOLUME 7.9 fL (7.9-10.8); MONOCYTES # (AUTO) 0.1 10^3/uL (0.0-1.0); MONOCYTES % (AUTO) 20.1 %; NEUTROPHILS % (AUTO) 2.5 %; PLT - PLATELET COUNT 39 10^3/uL (130-450); RED BLOOD COUNT 2.09 10^6/uL (4.20-5.40); RED CELL DISTRIBUTION WIDTH 18.2 % (12.0-15.0)
[2017-11-05 06:39] LABS: WHITE BLOOD COUNT 0.5 x10^3/uL (4.8-10.8)
[2017-11-05 06:40] LABS: HGB - HEMOGLOBIN 6.6 g/dL (12.0-16.0)
[2017-11-05 07:33] LABS: DIFFERENTIAL COMMENT MANUAL=AUTO DIFF; PLATELET ESTIMATE, MANUAL DECREASED (<130,000) (NORMAL); PLATELET MORPHOLOGY NORMAL APPEARANCE (NORMAL)
[2017-11-05] MEDS ORDERED: HYDROmorphone 0.5 MG/0.5 ML SYRINGE IVP PRN (07:35)
[2017-11-05] MEDS: ACYCLOVIR 200 MG CAPSULE PO SCH (08:06)
[2017-11-05] MEDS: FAMOTIDINE 20 MG TABLET PO SCH (08:07)
[2017-11-05] MEDS: CHOLECALCIFEROL 1,000 UNIT TABLET PO SCH (08:07)
[2017-11-05] MEDS: FLUCONAZOLE 100 MG TABLET PO SCH (08:07)
[2017-11-05] MEDS: POLYETHYLENE GLYCOL 3350 17 GM PACKET PO SCH (08:08)
[2017-11-05] MEDS: RYDAPT 25 MG PO SCH ×2 (08:08→21:20)
[2017-11-05] MEDS ORDERED: NON FORMULARY MED (Cholecalciferol (Vitamin D3) [Vitamin D3] 2,000 UNIT) PO SCH (09:00)
--- NOTE | 2017-11-05 10:59 | PROVIDER PROGRESS NOTE ---
Assessment/Plan - Problem List (1) Pseudomonas aeruginosa infection Assessment/Plan: The patient has positive preliminary blood cultures of pseudomonas aeruginosa. Oncology clinic Dr. Chamorro requests a consult call to [place] infectious disease which I called Dr. Dupree; The case was reviewed including primary diagnosis of AML and ongoing treatment of oral agent, the incident of the patient accidentally biting her internal right cheek which presented as cellulitis, lab review, admitted for neutropenic fever, blood culture results, current antibiotic used, current central line, and current state of mild improvement. He suggests that the current antibiotic (Cefapime) be continued and once culture sensitivities result, she should be continued on 2 weeks of antibiotic therapy. He suggests that we pull her upper right chest port and insert a semi-permanent central line (PICC). Once the 2 week treatment is achieved, then re-insert a permanent line for ongoing chemotherapy. He cautioned that this is a serious pathogen, so appropriate treatment is important. General surgery was contacted for central line removal, who believes that the current upper right chest line is one that can easily be removed. I appreciate their assistance. Anesthesia information systems manager was contacted for PICC insertion in preparation for possibly later this evening, but likely tomorrow AM due to blood/platelet administration. Plan: 1.) Complete blood transfusion and platelet transfusions to prepare for line exchange procedures. 2.) Re-check labs in AM to ensure the patient has responded to product replacement. 3.) Have nursing or medical staff remove current upper chest port. 4.) Call anesthesia, (PICC order already placed) when chest port is removed for a new PICC placement to carry out IV treatment of pseudomonas bacteremia. 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 Chamorro/Dr. Whittaker. 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 She has completed one induction therapy from 08/22/2017-08/28, and was to follow up with Dr. Whittaker on 10/24/2017. She is also a possible candidate for a donor transplant (allontransplant), although this is still being worked on. She continues on oral treatment of Rydapt BID as per oncologist. Neutrophil counts remain "0", although, this is not thought to be a contraindication for continued oral treatment. Today WBC was improved slightly at 0.5, Neut # remain unreportable. Plan: Monitor neutrophil counts, WBC and clinical well being. Continue oral chemo as per oncology clinic. (3) Cellulitis of right internal cheek Assessment/Plan: Upon exam, the patient's right cheek is swollen and sore as per patient report. She remembers accidentally biting her cheek a few weeks ago. Per chart review , this was noted in her latest MAC/oncology progress note by Marleen MCCONNELL. She was started on Bactrim and Cipro for this but, unfortunately, developed a neutropenic fever the evening before this admission. Upon exam, she states that she did not take the Cipro in fear of having "tendon rupture" as a complication since activity is so important to her. Blood cultures x2 were drawn and preliminary reports show pseudomonas aeruginosa that were obtained on 11/02/17, and the other culture remains no growth to date. She admits to needing oxycodone & tylenol for pain relief for her swollen right cheek and jaw. Plan: Monitor pain and inspect right cheek daily. (4) Febrile neutropenia Assessment/Plan: Patient had a temp max of 39.6 orally after arriving to the ED that has now subsided and her last fever was 11/04/17 ~0730am; was charted as 37.6, and patient denies symptoms of chills or sweats. Patient is encouraged to use ice and heat for soothing right cheek pain. Plan: Continue treatment of underlying infection, treat fevers with tylenol, monitor labs, and await final sensitivities. (5) Pancytopenia Assessment/Plan: Patient is expected to have pancytopenia as a consequence of her current chemotherapy which is PO midostaurin (Rydapt) BID. We are monitoring WBC count/ neutrophil counts daily. ENEDINA Benson from [facility] oncology confirmed the correct dosing today re; Rydapt BID PO is to continue despite complications of low platelets, low RBCs, low WBCs, and zero neutrophils. Plan: Continue current treatment of bacteremia, right cheek cellulitis and monitor labs daily to be drawn off central line as per patient request. - Current Meds Current Meds: Current Medications Generic Name Dose Route Start Last Admin Trade Name Freq PRN Reason Stop Dose Admin Acetaminophen 650 mg 11/03/17 01:16 11/05/17 05:40 Tylenol PO 650 mg Q4HR PRN Administration Pain or Fever > 38C (100.4F) Acyclovir 400 mg 11/05/17 09:00 11/05/17 08:06 Zovirax PO 400 mg DAILY ESTELITA Administration Cholecalciferol 2,000 unit 11/05/17 09:00 11/05/17 08:07 Vitamin D3 PO 2,000 unit DAILY ESTELITA Administration Famotidine 20 mg 11/03/17 09:00 11/05/17 08:07 Pepcid PO 20 mg DAILY ESTELITA Administration Fluconazole 400 mg 11/05/17 09:00 11/05/17 08:07 Diflucan PO 400 mg DAILY ESTELITA Administration Cefepime HCl 2 gm/ Sodium 100 mls @ 200 mls/hr 11/03/17 09:00 11/05/17 09:57 Chloride IV Infused Q8H ESTELITA Infusion Oxycodone HCl 5 mg 11/03/17 11:26 11/05/17 05:38 Roxicodone PO 5 mg Q4HR PRN Administration PAIN Rydapt(Midosaurin) 2 each 11/04/17 21:43 11/05/17 08:08 25 Mg Capsules PO Not Given BID ESTELITA Polyethylene Glycol 17 gm 11/03/17 09:00 11/05/17 08:08 Miralax PO 17 gm DAILY ESTELITA Administration Sodium Chloride 10 ml 11/03/17 01:16 11/05/17 01:26 Normal Saline Flush 0.9% IVP 10 ml PRN PRN Administration NEEDED PER PROVIDER ORDERS Sodium Chloride 10 ml 11/03/17 09:00 11/05/17 00:36 Normal Saline Flush 0.9% IVP 10 ml 0100,0900,1700 ESTELITA Administration - Lab Result Lab results reviewed: Yes Fish Bone Diagrams: 11/05/17 05:30 11/04/17 18:00 - Diagnostic Imaging Results Diagnostic Imaging Results: Prelim report reviewed, Final report reviewed - Additional Planning Condition/Complexity: Guarded Consult/Specialty: Infectious Disease (Vini Jones as per Dr. Chamorro request.), Oncology (Marleen Orozco- we spoke several times today to coordinate care plan.) Plan Discussed with:: Patient, Family Time Spent: Greater than 60 minutes Subjective - Subjective Patient Reports: Feeling Better, Pain (right cheek pain.) Nursing Reports: Pain Objective Vital Signs: Vital Signs - 24 hr 11/04/17 11/05/17 11/05/17 16:00 00:05 08:00 Temperature 36.8 C 36.9 C 36.8 C Heart Rate [ 63 68 64 Brachial] Respiratory 18 16 16 Rate Blood Pressure 116/56 L 107/55 L 100/35 L [Brachial artery] O2 Saturation 100 99 93 Oxygen O2 Source Room air I&O (Last 24 Hrs): Intake and Output Totals x24h 11/03/17 11/04/17 11/05/17 23:59 23:59 23:59 Intake Total 2542 2290 620 Balance 2542 2290 620 General: Alert, Oriented x3, Cooperative, Mild distress HEENT: Atraumatic, PERRLA, Mucous membr. moist/pink, Other (swelling in left cheek less today upon exam. Patient notes the pain to be similar to yesterday.) Neck: Supple, No JVD Lymphatic: no adenopathy Neuro: Alert, CN 2-12 Grossly Intact, Oriented Times 3 Cardiovascular: Regular rate Respiratory: Chest non-tender, No respiratory distress, Breath sounds nml Abdomen: Normal bowel sounds, Soft, No tenderness, No masses Extremities: No clubbing, No edema, No tenderness/swelling Skin: No rashes, No breakdown, No significant lesion Comments/Notes: skin is noted to be generally pale, likely from being anemic. - Results Results: Laboratory Results WBC 0.5 x10^3/uL (4.8-10.8) L* 11/05/17 05:30 RBC 2.09 10^6/uL (4.20-5.40) L 11/05/17 05:30 Hgb 6.6 g/dL (12.0-16.0) L* 11/05/17 05:30 Hct 19.1 % (37.0-47.0) L* 11/05/17 05:30 MCV 91.6 fL (81.0-99.0) 11/05/17 05:30 MCH 31.4 pg (27.0-31.0) H 11/05/17 05:30 MCHC 34.3 g/dL (32.0-36.0) 11/05/17 05:30 RDW 18.2 % (12.0-15.0) H 11/05/17 05:30 Plt Count 39 10^3/uL (130-450) L 11/05/17 05:30 MPV 7.9 fL (7.9-10.8) 11/05/17 05:30 Neut # 0.0 10^3/uL (1.5-6.6) L* 11/05/17 05:30 Lymph # 0.4 10^3/uL (1.5-3.5) L 11/05/17 05:30 [place] # 0.1 10^3/uL (0.0-1.0) 11/05/17 05:30 Eos # 0.0 10^3/uL (0.0-0.7) 11/05/17 05:30 Baso # 0.0 10^3/uL (0.0-0.1) 11/05/17 05:30 Absolute Nucleated RBC 0.00 x10^3/uL 11/05/17 05:30 Total Counted 50 11/02/17 21:23 Band Neuts % (Manual) Not Reportable 11/05/17 05:30 Abnorm Lymph % (Manual) Not Reportable 11/05/17 05:30 Nucleated RBC % 0.2 /100WBC 11/05/17 05:30 Neutrophils # (Manual) Not Reportable 11/05/17 05:30 Lymphocytes # (Manual) Not Reportable 11/05/17 05:30 Monocytes # (Manual) Not Reportable 11/05/17 05:30 Eosinophils # (Manual) Not Reportable 11/05/17 05:30 Basophils # (Manual) Not Reportable 11/05/17 05:30 Differential Comment MANUAL=AUTO DIFF 11/05/17 05:30 Manual Slide Review Indicated 11/04/17 18:00 WBC Morphology NORMAL APPEARANCE (NORMAL) 11/04/17 18:00 Platelet Estimate DECREASED (<130,000) (NORMAL) 11/05/17 05:30 Platelet Morphology NORMAL APPEARANCE (NORMAL) 11/05/17 05:30 RBC Morph Micro Appear 2+ ANISOCYTOSIS (NORMAL) 1+ HYPOCHROMASIA (NORMAL) 1 + TEARDROP CELLS (NORMAL) 1+ OVALOCYTES (NORMAL) 1+ SPHEROCYTES (NORMAL) 13:30 RBC Morph Micro Appear 2+ ANISOCYTOSIS (NORMAL) 1+ HYPOCHROMASIA (NORMAL) 1 + TEARDROP CELLS (NORMAL) 1+ OVALOCYTES (NORMAL) 1+ SPHEROCYTES (NORMAL) 13:30 RBC Morph Micro Appear 2+ ANISOCYTOSIS (NORMAL) 1+ HYPOCHROMASIA (NORMAL) 1 + TEARDROP CELLS (NORMAL) 1+ OVALOCYTES (NORMAL) 1+ SPHEROCYTES (NORMAL) 13:30 RBC Morph Micro Appear 2+ ANISOCYTOSIS (NORMAL) 1+ HYPOCHROMASIA (NORMAL) 1 + TEARDROP CELLS (NORMAL) 1+ OVALOCYTES (NORMAL) 1+ SPHEROCYTES (NORMAL) 13:30 RBC Morph Micro Appear 2+ ANISOCYTOSIS (NORMAL) 1+ HYPOCHROMASIA (NORMAL) 1 + OVALOCYTES (NORMAL) 1+ MICROCYTOSIS (NORMAL) 1+ SPHEROCYTES (NORMAL) 18:00 RBC Morph Micro Appear 2+ ANISOCYTOSIS (NORMAL) 1+ HYPOCHROMASIA (NORMAL) 1 + OVALOCYTES (NORMAL) 1+ MICROCYTOSIS (NORMAL) 1+ SPHEROCYTES (NORMAL) 18:00 RBC Morph Micro Appear 2+ ANISOCYTOSIS (NORMAL) 1+ HYPOCHROMASIA (NORMAL) 1 + OVALOCYTES (NORMAL) 1+ MICROCYTOSIS (NORMAL) 1+ SPHEROCYTES (NORMAL) 18:00 RBC Morph Micro Appear 2+ ANISOCYTOSIS (NORMAL) 1+ HYPOCHROMASIA (NORMAL) 1 + OVALOCYTES (NORMAL) 1+ MICROCYTOSIS (NORMAL) 1+ SPHEROCYTES (NORMAL) 18:00 RBC Morph Micro Appear 2+ ANISOCYTOSIS (NORMAL) 1+ HYPOCHROMASIA (NORMAL) 1 + OVALOCYTES (NORMAL) 1+ MICROCYTOSIS (NORMAL) 1+ SPHEROCYTES (NORMAL) 18:00 RBC Morph Micro Appear 1+ ANISOCYTOSIS (NORMAL) 1+ HYPOCHROMASIA (NORMAL) 1+ TEARDROP CELLS (NORMAL) 1+ OVALOCYTES (NORMAL) 11/05/17 05:30 RBC Morph Micro Appear 1+ ANISOCYTOSIS (NORMAL) 1+ HYPOCHROMASIA (NORMAL) 1+ TEARDROP CELLS (NORMAL) 1+ OVALOCYTES (NORMAL) 11/05/17 05:30 RBC Morph Micro Appear 1+ ANISOCYTOSIS (NORMAL) 1+ HYPOCHROMASIA (NORMAL) 1+ TEARDROP CELLS (NORMAL) 1+ OVALOCYTES (NORMAL) 11/05/17 05:30 RBC Morph Micro Appear 1+ ANISOCYTOSIS (NORMAL) 1+ HYPOCHROMASIA (NORMAL) 1+ TEARDROP CELLS (NORMAL) 1+ OVALOCYTES (NORMAL) 11/05/17 05:30 ESR > 140 mm/Hr (0-30) H 11/04/17 18:37 Sodium 134 mmol/L (135-145) L 11/04/17 18:00 Potassium 3.8 mmol/L (3.5-5.0) 11/04/17 18:00 Chloride 98 mmol/L (101-111) L 11/04/17 18:00 Carbon Dioxide 24 mmol/L (21-32) 11/04/17 18:00 Anion Gap 12.0 (6-13) 11/04/17 18:00 BUN 9 mg/dL (6-20) 11/04/17 18:00 Creatinine 0.6 mg/dL (0.4-1.0) 11/04/17 18:00 Estimated GFR (MDRD) 98 (>89) 11/04/17 18:00 Glucose 160 mg/dL (70-100) H 11/04/17 18:00 Lactic Acid 1.2 mmol/L (0.5-2.2) 11/02/17 21:23 Calcium 8.7 mg/dL (8.5-10.3) 11/04/17 18:00 Magnesium 1.9 mg/dL (1.7-2.8) 11/03/17 05:45 Total Bilirubin 0.2 mg/dL (0.2-1.0) 11/04/17 18:00 AST 20 IU/L (10-42) 11/04/17 18:00 ALT 21 IU/L (10-60) 11/04/17 18:00 Alkaline Phosphatase 73 IU/L (42-121) 11/04/17 18:00 C-Reactive Protein 19.5 mg/dL (0-1.0) H 11/04/17 18:00 Total Protein 6.1 g/dL (6.7-8.2) L 11/04/17 18:00 Albumin 2.8 g/dL (3.2-5.5) L 11/04/17 18:00 Globulin 3.3 g/dL (2.1-4.2) 11/04/17 18:00 Albumin/Globulin Ratio 0.8 (1.0-2.2) L 11/04/17 18:00 Lipase 28 U/L (22-51) 11/02/17 21:23 Urine Color YELLOW 11/02/17 23:00 Urine Clarity CLEAR (CLEAR) 11/02/17 23:00 Urine pH 6.0 PH (5.0-7.5) 11/02/17 23:00 Ur Specific [place] 1.010 (1.002-1.030) 11/02/17 23:00 Urine Protein NEGATIVE mg/dL (NEGATIVE) 11/02/17 23:00 Urine Glucose (UA) NEGATIVE mg/dL (NEGATIVE) 11/02/17 23:00 Urine Ketones NEGATIVE mg/dL (NEGATIVE) 11/02/17 23:00 Urine Occult Blood TRACE-LYSE (NEGATIVE) 11/02/17 23:00 Urine Nitrite NEGATIVE (NEGATIVE) 11/02/17 23:00 Urine Bilirubin NEGATIVE (NEGATIVE) 11/02/17 23:00 Urine Urobilinogen 0.2 (NORMAL) E.U./dL (NORMAL) 11/02/17 23:00 Ur Leukocyte Esterase NEGATIVE (NEGATIVE) 11/02/17 23:00 Ur Microscopic Review NOT INDICATED 11/02/17 23:00 Urine Culture Comments NOT INDICATED 11/02/17 23:00 Last Dose Date 11/03/17 11/04/17 09:35 Last Dose Time 2350 11/04/17 09:35 Vancomycin Trough 7.3 ug/mL (5.0-15.0) 11/04/17 09:35 Blood Type O POSITIVE 11/02/17 03:50 Antibody Screen NEGATIVE 11/02/17 03:50 Crossmatch IS Only See Detail 11/02/17 03:50
[2017-11-05] MEDS ORDERED: ACETAMINOPHEN 325 MG TABLET PO SCH (12:21)
--- NOTE | 2017-11-05 12:44 | CONSULTATION NOTE ---
Referring Provider Name of Referring Provider:: Casimiro Smyth Consult Date: 11/05/17 Chief Complaint - Chief Complaint Chief Complaint: Neutropenic fever with central line in place; consult re removal. History of Present Illness - Admitted From Admitted From:: home - History Obtained From Records Reviewed: yes History obtained from: pt and Casimiro Symth - History of Present Illness HPI Comment/Other: 71 yo female with AML, currently receiving chemotherapy, admitted 3 days ago with neutropenic fever, and subsequently has had positive blood cultures for Pseudomonas. Consultation with oncology has resulted in request for removal of her central line, type unkown, possibly tunneled, place at [facility] Jul. Her fever has been slowly resolving and she reports no sx related to the catheter insertion site. History - Past Medical History Cardiovascular: reports: None Respiratory: reports: None Neuro: reports: None Endocrine/Autoimmune: reports: None GI: reports: None : reports: None Psych: reports: None Musculoskeletal: reports: None Derm: reports: None MRSA Hx?: No Other Past Medical History: acute myelogenous leukemia - Past Surgical History General: reports: Appendectomy HEENT: reports: Tonsil/Adenoidectomy - POLST Patient has POLST: No Meds/Allgy - Home Medications Home Medications: Ambulatory Orders Medication Instructions Recorded Confirmed Cholecalciferol (Vitamin D3) 2,000 unit PO DAILY 07/17/17 11/03/17 [Vitamin D3] Acyclovir 400 mg PO DAILY 10/10/17 11/03/17 Midostaurin [Rydapt] 50 mg PO BID MDD Days 8-21 (14 10/25/17 11/03/17 days) Fluconazole 400 mg PO DAILY #30 tablet 10/31/17 11/03/17 Sulfamethoxazole/Trimethoprim 1 each PO MOWE@0900,2100 MDD 11/01/17 11/03/17 [Sulfamethoxazole-Tmp Ds Tablet] 800/160 mg tabs - Allergies Allergies/Adverse Reactions: Allergies Allergy/AdvReac Type Severity Reaction Status Date / Time amoxicillin Allergy Unknown Verified 11/02/17 20:28 latex Allergy Unknown Verified 11/02/17 20:28 levofloxacin Allergy Unknown Verified 11/02/17 20:28 Penicillins Allergy Unknown Verified 11/02/17 20:28 paradex Allergy Unknown Uncoded 11/02/17 20:28 Exam - Vital Signs Vital Signs: Vital Signs x48h Temp Pulse Resp BP Pulse Ox 11/05/17 08:00 36.8 C 64 16 100/35 L 93 - Physical Exam General Appearance: positive: No acute distress Eyes Bilateral: positive: Normal inspection, Conjunctivae nml, No scleral icterus ENT: positive: Other (mild swelling of right cheek compared to left) Neck: positive: Nml inspection, No JVD Respiratory: positive: Chest non-tender, Other (approx 8 greenlandic non tunneled dual lumen CVP line in place exiting skin just below right mid clavicle; mild redness at exit site, minimally tender, secured with several sutures and a clear occlusive dressing; no fluctuance, ecchymosis or evidence of cellulitis or abscess around catheter.) Skin: positive: Pallor Conclusion/Plan - Diagnosis Diagnosis: neutropenic fever with bacteremia. Etiology may be from facial cellulitis, but also from central line. - Plan Plan: Rec: agree with central line removal, which can be done at bedside by RN. Alternatively, IV antibiotics can be continued via peripheral line with hope of sterilizing catheter if it is in fact the source of the infection.Simultaneous cultures can be obtained from central line and peripherally to ascertain if the line is the source of the infection. A PICC line could be inserted after sepsis has resolved. Thank you for allowing me to participate in Ms. Doshi's care. - Lab Results Lab results reviewed: Yes Fish Bones: 11/05/17 05:30 11/04/17 18:00 - Diagnostic Imaging Results Diagnostic Imaging Results: positive: Final report reviewed Diagnostic Imaging Results Comments: CXR shows central line on right with tip near SVC and no sig abnormalities.
[2017-11-05] MEDS ORDERED: diphenhydrAMINE 25 MG CAPSULE PO SCH (13:00)
[2017-11-05] MEDS ORDERED: SODIUM CHLORIDE FLUSH 0.9% 10 ML SYRINGE ONE (18:51)
[2017-11-05 23:19] LABS: INR 1.2 (0.8-1.2); PT - PROTHROMBIN TIME 13.1 secs (9.9-12.6)
[2017-11-06] MEDS: CEFEPIME 2 GM in SODIUM CHLORIDE 0.9% MINIBAG 100 ML IV SCH ×3 (01:29→16:54)
[2017-11-06] MEDS: ACETAMINOPHEN 325 MG TABLET PO PRN ×3 (03:13→20:04)
[2017-11-06] MEDS: oxyCODONE 5 MG TABLET PO PRN ×3 (03:14→21:24)
[2017-11-06] MEDS: SODIUM CHLORIDE FLUSH 0.9% 10 ML SYRINGE IVP SCH ×3 (07:12→16:55)
[2017-11-06 08:12] LABS: ALBUMIN 2.7 g/dL (3.2-5.5); BILIRUBIN,TOTAL 0.4 mg/dL (0.2-1.0); CALCIUM 8.4 mg/dL (8.5-10.3); CREATININE 0.5 mg/dL (0.4-1.0); TOTAL PROTEIN 5.5 g/dL (6.7-8.2)
[2017-11-06 08:23] LABS: BASOPHILS % (AUTO) 0.3 %; EOSINOPHILS % (AUTO) 0.3 %; HGB - HEMOGLOBIN 9.2 g/dL (12.0-16.0); LYMPHOCYTES # (AUTO) 0.4 10^3/uL (1.5-3.5); LYMPHOCYTES % (AUTO) 57.5 %; MEAN CORPUSCULAR HEMOGLOBIN 31.6 pg (27.0-31.0); MEAN CORPUSCULAR HGB CONC 35.6 g/dL (32.0-36.0); MEAN CORPUSCULAR VOLUME 88.6 fL (81.0-99.0); MEAN PLATELET VOLUME 8.7 fL (7.9-10.8); MONOCYTES # (AUTO) 0.3 10^3/uL (0.0-1.0); MONOCYTES % (AUTO) 32.4 %; NEUTROPHILS % (AUTO) 9.5 %; PLT - PLATELET COUNT 69 10^3/uL (130-450); RED BLOOD COUNT 2.91 10^6/uL (4.20-5.40); RED CELL DISTRIBUTION WIDTH 17.2 % (12.0-15.0)
[2017-11-06 08:37] LABS: WHITE BLOOD COUNT 0.8 x10^3/uL (4.8-10.8)
[2017-11-06 08:38] LABS: NEUTROPHILS # (AUTO) 0.1 10^3/uL (1.5-6.6)
[2017-11-06] MEDS: CHOLECALCIFEROL 1,000 UNIT TABLET PO SCH (08:50)
[2017-11-06] MEDS: ACYCLOVIR 200 MG CAPSULE PO SCH (08:50)
[2017-11-06] MEDS: FLUCONAZOLE 100 MG TABLET PO SCH (08:50)
[2017-11-06] MEDS: FAMOTIDINE 20 MG TABLET PO SCH (08:50)
[2017-11-06] MEDS: POLYETHYLENE GLYCOL 3350 17 GM PACKET PO SCH (08:50)
[2017-11-06] MEDS: RYDAPT 25 MG PO SCH ×2 (08:51→21:24)
[2017-11-06 09:38] LABS: PLATELET ESTIMATE, MANUAL DECREASED (<130,000) (NORMAL); PLATELET MORPHOLOGY 1+ LARGE PLATELETS (NORMAL)
[2017-11-06 09:39] LABS: DIFFERENTIAL COMMENT MANUAL=AUTO DIFF
--- NOTE | 2017-11-06 12:26 | PROVIDER PROGRESS NOTE ---
Subjective - Prog Note Date Prog Note Date: 11/06/17 - Subjective Pt reports feeling: Improved Subjective: pt report she feel better, no fever, chill, night sweating. No chest pain, SOB Current Medications - Current Medications Current Medications: Active Medications Acetaminophen (Tylenol) 650 mg PO Q4HR PRN PRN Reason: Pain or Fever > 38C (100.4F) Last Admin: 11/06/17 08:47 Dose: 650 mg Acyclovir (Zovirax) 400 mg PO DAILY [facility] Last Admin: 11/06/17 08:50 Dose: 400 mg Cholecalciferol (Vitamin D3) 2,000 unit PO DAILY [facility] Last Admin: 11/06/17 08:50 Dose: 2,000 unit Famotidine (Pepcid) 20 mg PO DAILY [facility] Last Admin: 11/06/17 08:50 Dose: 20 mg Fluconazole (Diflucan) 400 mg PO DAILY [facility] Last Admin: 11/06/17 08:50 Dose: 400 mg Heparin Sodium (Beef Lung) () 30 - 50 unit IVP ONCE PRN PRN Reason: Central Line Protocol (<24 hr) Stop: 12/05/17 02:45 Last Admin: 11/05/17 17:46 Dose: 50 unit Heparin Sodium (Beef Lung) () 300 - 500 unit IVP ONCE PRN PRN Reason: Central Line Protocol (>24 hr) Stop: 12/05/17 02:45 Hydromorphone HCl (Dilaudid Inj Syringe) 0.5 mg IVP Q2HR PRN PRN Reason: Pain 8 to 10 Cefepime HCl 2 gm/ Sodium (Chloride) 100 mls @ 200 mls/hr IV Q8H [facility] Last Infusion: 11/06/17 10:22 Dose: Infused Ondansetron HCl (Zofran Inj) 4 mg IVP Q6HR PRN PRN Reason: Nausea / Vomiting Oxycodone HCl (Roxicodone) 5 mg PO Q4HR PRN PRN Reason: PAIN Last Admin: 11/06/17 08:48 Dose: 5 mg Rydapt(Midosaurin) (25 Mg Capsules) 2 each PO BID [facility] Last Admin: 11/06/17 08:51 Dose: 2 each Polyethylene Glycol (Miralax) 17 gm PO DAILY [facility] Last Admin: 11/06/17 08:50 Dose: Not Given Sodium Chloride (Normal Saline Flush 0.9%) 10 ml IVP PRN PRN PRN Reason: NEEDED PER PROVIDER ORDERS Last Admin: 11/05/17 22:40 Dose: 30 ml Sodium Chloride (Normal Saline Flush 0.9%) 10 ml IVP 0100,0900,1700 ESTELITA Last Admin: 11/06/17 08:55 Dose: 10 ml Sodium Chloride (Normal Saline Flush 0.9%) 20 ml IVP PRN PRN PRN Reason: After Blood Draw Temazepam (Restoril) 15 mg PO QPM PRN PRN Reason: Insomnia Cholecalciferol (Vitamin D3) [Vitamin D3] 2,000 unit PO DAILY 07/17/17 Acyclovir 400 mg PO DAILY 10/10/17 Midostaurin [Rydapt] 50 mg PO BID MDD Days 8-21 (14 days) 10/25/17 Sulfamethoxazole/Trimethoprim [Sulfamethoxazole-Tmp Ds Tablet] 1 each PO MOWE@ 0900,2100 MDD 800/160 mg tabs 11/01/17 Objective - Vital Signs/Intake & Output Reviewed Vital Signs: Yes Vital Signs: Vital Signs x48h Temp Pulse Resp BP Pulse Ox 11/06/17 07:59 37.0 C 70 16 114/50 L 93 Intake & Output: Intake & Output 11/03/17 11/04/17 11/05/17 11/06/17 23:59 23:59 23:59 23:59 Intake Total 2542 2290 3030 720 Balance 2542 2290 3030 720 - Objective General Appearance: positive: No acute distress, Alert. negative: Lethargic Eyes Bilateral: positive: Normal inspection, PERRL, No lid inflammation, Conjunctivae nml ENT: positive: ENT inspection nml, Pharynx nml, No signs of dehydration. negative: Purulent nasal drainage, Pharyngeal erythema, Oral lesions Neck: positive: Nml inspection, Thyroid nml, No JVD, Trachea midline. negative : Thyromegaly, Lymphadenopathy (R), Lymphadenopathy (L), Stiff neck, Carotid bruit, Swelling/bruising, Tracheal deviation Respiratory: positive: Chest non-tender, No respiratory distress, Breath sounds nml. negative: Wheezes, Rales, Rhonchi Cardiovascular: positive: Regular rate & rhythm, No murmur, No gallop. negative : Irregularly irregular, Extrasystoles, Tachycardia, Bradycardia, JVD present, Systolic murmur, Diastolic murmur Peripheral Pulses: 2+ Radial (R), 2+ Radial (L), 2+ Dorsalis pedis (R), 2+ Dorsalis pedis (L) Abdomen: positive: Non-tender, No organomegaly, Nml bowel sounds, No distention. negative: Tenderness, Guarding, Rebound Back: positive: Nml inspection. negative: CVA tenderness (R), CVA tenderness (L ) Skin: positive: Color nml, No rash, Warm, Dry. negative: Cyanosis, Diaphoresis , Pallor Extremities: positive: Non-tender, Full ROM, Nml appearance. negative: Calf tenderness, Joint swelling, Meaghan's sign/cords Neurologic/Psychiatric: positive: Oriented x3, Motor nml, Sensation nml, Mood/ affect nml. negative: Sensory loss, Facial droop, Slurred/abnml speech, Depressed mood/affect - Lab Results Fish Bones: 11/06/17 07:57 11/06/17 07:57 Other Labs: Lab Results x24hrs 11/06/17 11/06/17 11/05/17 Range/Units 07:57 07:57 23:07 WBC 0.8 L* (4.8-10.8) x10^3/uL RBC 2.91 L (4.20-5.40) 10^6/uL Hgb 9.2 L (12.0-16.0) g/dL Hct 25.8 L (37.0-47.0) % MCV 88.6 (81.0-99.0) fL MCH 31.6 H (27.0-31.0) pg MCHC 35.6 (32.0-36.0) g/dL RDW 17.2 H (12.0-15.0) % Plt Count 69 L (130-450) 10^3/uL MPV 8.7 (7.9-10.8) fL Neut # 0.1 L* (1.5-6.6) 10^3/uL Lymph # 0.4 L (1.5-3.5) 10^3/uL Polk # 0.3 (0.0-1.0) 10^3/uL Eos # 0.0 (0.0-0.7) 10^3/uL Baso # 0.0 (0.0-0.1) 10^3/uL Absolute Nucleated RBC 0.00 x10^3/uL Total Counted EVALUATION ASSISTANT Band Neuts % (Manual) Not Reportable Abnorm Lymph % (Manual) Not Reportable Nucleated RBC % 0.1 /100WBC Neutrophils # (Manual) Not Reportable Lymphocytes # (Manual) Not Reportable Monocytes # (Manual) Not Reportable Eosinophils # (Manual) Not Reportable Basophils # (Manual) Not Reportable Differential Comment MANUAL=AUTO DIFF Platelet Estimate DECREASED (<130,000) (NORMAL) Platelet Morphology 1+ LARGE PLATELETS (NORMAL) RBC Morph Micro Appear 1+ TEARDROP CELLS (NORMAL) PT 13.1 H (9.9-12.6) secs INR 1.2 (0.8-1.2) APTT 31.3 (24.9-33.3) secs Sodium 137 (135-145) mmol/L Potassium 3.7 (3.5-5.0) mmol/L Chloride 102 (101-111) mmol/L Carbon Dioxide 30 (21-32) mmol/L Anion Gap 5.0 L (6-13) BUN 8 (6-20) mg/dL Creatinine 0.5 (0.4-1.0) mg/dL Estimated GFR (MDRD) 121 (>89) Glucose 102 H (70-100) mg/dL Calcium 8.4 L (8.5-10.3) mg/dL Total Bilirubin 0.4 (0.2-1.0) mg/dL AST 14 (10-42) IU/L ALT 19 (10-60) IU/L Alkaline Phosphatase 65 (42-121) IU/L Total Protein 5.5 L (6.7-8.2) g/dL Albumin 2.7 L (3.2-5.5) g/dL Globulin 2.8 (2.1-4.2) g/dL Albumin/Globulin Ratio 1.0 (1.0-2.2) Blood Type Antibody Screen Crossmatch IS Only 11/03/17 Range/Units 03:50 WBC (4.8-10.8) x10^3/uL RBC (4.20-5.40) 10^6/uL Hgb (12.0-16.0) g/dL Hct (37.0-47.0) % MCV (81.0-99.0) fL MCH (27.0-31.0) pg MCHC (32.0-36.0) g/dL RDW (12.0-15.0) % Plt Count (130-450) 10^3/uL MPV (7.9-10.8) fL Neut # (1.5-6.6) 10^3/uL Lymph # (1.5-3.5) 10^3/uL [place]k # (0.0-1.0) 10^3/uL Eos # (0.0-0.7) 10^3/uL Baso # (0.0-0.1) 10^3/uL Absolute Nucleated RBC x10^3/uL Total Counted Band Neuts % (Manual) Abnorm Lymph % (Manual) Nucleated RBC % /100WBC Neutrophils # (Manual) Lymphocytes # (Manual) Monocytes # (Manual) Eosinophils # (Manual) Basophils # (Manual) Differential Comment Platelet Estimate (NORMAL) Platelet Morphology (NORMAL) RBC Morph Micro Appear (NORMAL) PT (9.9-12.6) secs INR (0.8-1.2) APTT (24.9-33.3) secs Sodium (135-145) mmol/L Potassium (3.5-5.0) mmol/L Chloride (101-111) mmol/L Carbon Dioxide (21-32) mmol/L Anion Gap (6-13) BUN (6-20) mg/dL Creatinine (0.4-1.0) mg/dL Estimated GFR (MDRD) (>89) Glucose (70-100) mg/dL Calcium (8.5-10.3) mg/dL Total Bilirubin (0.2-1.0) mg/dL AST (10-42) IU/L ALT (10-60) IU/L Alkaline Phosphatase (42-121) IU/L Total Protein (6.7-8.2) g/dL Albumin (3.2-5.5) g/dL Globulin (2.1-4.2) g/dL Albumin/Globulin Ratio (1.0-2.2) Blood Type O POSITIVE Antibody Screen NEGATIVE Crossmatch IS Only See Detail Assessment/Plan - Problem List (1) Pseudomonas aeruginosa infection Impression: (1) Pseudomonas aeruginosa infection Assessment/Plan: follow up ID recommendation, and bacterial sensitivity to Cefepime. finish blood transfusion and platelet transfusion discuss with RN to remove central line, and will call PICC anesthesia, after transfusion, to insert PICC The patient has positive preliminary blood cultures of pseudomonas aeruginosa. Oncology clinic Dr. Chamorro requests a consult call to [facility] which I called Dr. Dupree; The case was reviewed including primary diagnosis of AML and ongoing treatment of oral agent, the incident of the patient accidentally biting her internal right cheek which presented as cellulitis, lab review, admitted for neutropenic fever, blood culture results, current antibiotic used, current central line, and current state of mild improvement. He suggests that the current antibiotic (Cefapime) be continued and once culture sensitivities result, she should be continued on 2 weeks of antibiotic therapy. He suggests that we pull her upper right chest port and insert a semi-permanent central line (PICC). Once the 2 week treatment is achieved, then re-insert a permanent line for ongoing chemotherapy. He cautioned that this is a serious pathogen, so appropriate treatment is important. General surgery was contacted for central line removal, who believes that the current upper right chest line is one that can easily be removed. I appreciate their assistance. Anesthesia front desk attendant was contacted for PICC insertion in preparation for possibly later this evening, but likely tomorrow AM due to blood/platelet administration. Plan: 1.) Complete blood transfusion and platelet transfusions to prepare for line exchange procedures. 2.) Re-check labs in AM to ensure the patient has responded to product replacement. 3.) Have nursing or medical staff remove current upper chest port. 4.) Call anesthesia, (PICC order already placed) when chest port is removed for a new PICC placement to carry out IV treatment of pseudomonas bacteremia. 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 Chamorro/Dr. Whittaker. 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 She has completed one induction therapy from 08/22/2017-08/28, and was to follow up with Dr. Whittaker on 10/24/2017. She is also a possible candidate for a donor transplant (allontransplant), although this is still being worked on. She continues on oral treatment of Rydapt BID as per oncologist. Neutrophil counts remain "0", although, this is not thought to be a contraindication for continued oral treatment. Today WBC was improved slightly at 0.5, Neut # remain unreportable. Plan: Monitor neutrophil counts, WBC and clinical well being. Continue oral chemo as per oncology clinic. (3) Cellulitis of right internal cheek Assessment/Plan: continue pain control continue antibiotics Upon exam, the patient's right cheek is swollen and sore as per patient report. She remembers accidentally biting her cheek a few weeks ago. Per chart review , this was noted in her latest MAC/oncology progress note by Marleen MCCONNELL. She was started on Bactrim and Cipro for this but, unfortunately, developed a neutropenic fever the evening before this admission. Upon exam, she states that she did not take the Cipro in fear of having "tendon rupture" as a complication since activity is so important to her. Blood cultures x2 were drawn and preliminary reports show pseudomonas aeruginosa that were obtained on 11/02/17, and the other culture remains no growth to date. She admits to needing oxycodone & tylenol for pain relief for her swollen right cheek and jaw. Plan: Monitor pain and inspect right cheek daily. (4) Febrile neutropenia Assessment/Plan: no fever since admitted continue antibiotics continue daily lab test Patient had a temp max of 39.6 orally after arriving to the ED that has now subsided and her last fever was 11/04/17 ~0730am; was charted as 37.6, and patient denies symptoms of chills or sweats. Patient is encouraged to use ice and heat for soothing right cheek pain. Plan: Continue treatment of underlying infection, treat fevers with tylenol, monitor labs, and await final sensitivities. (5) Pancytopenia Assessment/Plan: improvement of pancytopenia continue lab test continue antibiotics treatment Patient is expected to have pancytopenia as a consequence of her current chemotherapy which is PO midostaurin (Rydapt) BID. We are monitoring WBC count/ neutrophil counts daily. ENEDINA Benson from [facility] [place] confirmed the correct dosing today re; Rydapt BID PO is to continue despite complications of low platelets, low RBCs, low WBCs, and zero neutrophils. Plan: Continue current treatment of bacteremia, right cheek cellulitis and monitor labs daily to be drawn off central line as per patient request.
[2017-11-07] MEDS: CEFEPIME 2 GM in SODIUM CHLORIDE 0.9% MINIBAG 100 ML IV SCH ×3 (01:09→16:52)
[2017-11-07] MEDS: oxyCODONE 5 MG TABLET PO PRN ×3 (01:19→22:15)
[2017-11-07] MEDS: ACETAMINOPHEN 325 MG TABLET PO PRN ×3 (01:19→22:15)
[2017-11-07] MEDS: SODIUM CHLORIDE FLUSH 0.9% 10 ML SYRINGE IVP PRN (01:48)
[2017-11-07] MEDS: SODIUM CHLORIDE FLUSH 0.9% 10 ML SYRINGE IVP SCH ×3 (02:51→16:52)
[2017-11-07 05:21] LABS: BASOPHILS % (AUTO) 0.2 %; EOSINOPHILS % (AUTO) 0.2 %; HGB - HEMOGLOBIN 8.9 g/dL (12.0-16.0); LYMPHOCYTES # (AUTO) 0.6 10^3/uL (1.5-3.5); LYMPHOCYTES % (AUTO) 54.7 %; MEAN CORPUSCULAR HEMOGLOBIN 31.1 pg (27.0-31.0); MEAN CORPUSCULAR HGB CONC 34.3 g/dL (32.0-36.0); MEAN CORPUSCULAR VOLUME 90.6 fL (81.0-99.0); MEAN PLATELET VOLUME 8.5 fL (7.9-10.8); MONOCYTES # (AUTO) 0.4 10^3/uL (0.0-1.0); MONOCYTES % (AUTO) 32.4 %; NEUTROPHILS % (AUTO) 12.5 %; PLT - PLATELET COUNT 107 10^3/uL (130-450); RED BLOOD COUNT 2.85 10^6/uL (4.20-5.40); RED CELL DISTRIBUTION WIDTH 17.5 % (12.0-15.0)
[2017-11-07 05:30] LABS: WHITE BLOOD COUNT 1.1 x10^3/uL (4.8-10.8)
[2017-11-07 05:31] LABS: NEUTROPHILS # (AUTO) 0.1 10^3/uL (1.5-6.6)
[2017-11-07 05:38] LABS: ALBUMIN 2.7 g/dL (3.2-5.5); ALBUMIN/GLOBULIN RATIO 0.9 (1.0-2.2); BILIRUBIN,TOTAL 0.5 mg/dL (0.2-1.0); CALCIUM 8.6 mg/dL (8.5-10.3); CREATININE 0.5 mg/dL (0.4-1.0); TOTAL PROTEIN 5.7 g/dL (6.7-8.2)
[2017-11-07 06:50] LABS: DIFFERENTIAL COMMENT MANUAL=AUTO DIFF; PLATELET ESTIMATE, MANUAL DECREASED (<130,000) (NORMAL); PLATELET MORPHOLOGY 1+ LARGE PLATELETS (NORMAL)
[2017-11-07] MEDS: POLYETHYLENE GLYCOL 3350 17 GM PACKET PO SCH (08:16)
[2017-11-07] MEDS: FAMOTIDINE 20 MG TABLET PO SCH (08:17)
[2017-11-07] MEDS: ACYCLOVIR 200 MG CAPSULE PO SCH (08:17)
[2017-11-07] MEDS: FLUCONAZOLE 100 MG TABLET PO SCH (08:17)
[2017-11-07] MEDS: CHOLECALCIFEROL 1,000 UNIT TABLET PO SCH (08:17)
[2017-11-07] MEDS: RYDAPT 25 MG PO SCH ×2 (09:10→22:14)
--- NOTE | 2017-11-07 14:37 | XRAY Report ---
FRONTAL CHEST: 11/07/2017 CLINICAL INDICATION: PICC placement. COMPARISON: 11/02/2017. FINDINGS: Frontal view of the chest demonstrates right arm PICC terminating in the cavoatrial junction. The cardiac silhouette is within normal limits. The lungs demonstrate basilar atelectasis. No effusion or pneumothorax is seen. Right jugular central venous catheter has been removed. IMPRESSION: RIGHT ARM PICC TERMINATING AT THE CAVOATRIAL JUNCTION. TD: 11/07/2017 14:36
--- NOTE | 2017-11-07 16:07 | PROVIDER PROGRESS NOTE ---
Subjective - Prog Note Date Prog Note Date: 11/07/17 - Subjective Pt reports feeling: Improved Subjective: pt denies fever, chill, night sweating. pt state she feel better. Pt will have PICC line today afternoon. Current Medications - Current Medications Current Medications: Active Medications Acetaminophen (Tylenol) 650 mg PO Q4HR PRN PRN Reason: Pain or Fever > 38C (100.4F) Last Admin: 11/07/17 06:51 Dose: 650 mg Acyclovir (Zovirax) 400 mg PO DAILY [facility] Last Admin: 11/07/17 08:17 Dose: 400 mg Cholecalciferol (Vitamin D3) 2,000 unit PO DAILY [facility] Last Admin: 11/07/17 08:17 Dose: 2,000 unit Famotidine (Pepcid) 20 mg PO DAILY [facility] Last Admin: 11/07/17 08:17 Dose: 20 mg Fluconazole (Diflucan) 400 mg PO DAILY [facility] Last Admin: 11/07/17 08:17 Dose: 400 mg Heparin Sodium (Beef Lung) () 30 - 50 unit IVP ONCE PRN PRN Reason: Central Line Protocol (<24 hr) Stop: 12/05/17 02:45 Last Admin: 11/05/17 17:46 Dose: 50 unit Heparin Sodium (Beef Lung) () 300 - 500 unit IVP ONCE PRN PRN Reason: Central Line Protocol (>24 hr) Stop: 12/05/17 02:45 Hydromorphone HCl (Dilaudid Inj Syringe) 0.5 mg IVP Q2HR PRN PRN Reason: Pain 8 to 10 Cefepime HCl 2 gm/ Sodium (Chloride) 100 mls @ 200 mls/hr IV Q8H [facility] Last Admin: 11/07/17 16:52 Dose: 200 mls/hr Ondansetron HCl (Zofran Inj) 4 mg IVP Q6HR PRN PRN Reason: Nausea / Vomiting Oxycodone HCl (Roxicodone) 5 mg PO Q4HR PRN PRN Reason: PAIN Last Admin: 11/07/17 06:50 Dose: 5 mg Rydapt(Midosaurin) (25 Mg Capsules) 2 each PO BID [facility] Last Admin: 11/07/17 09:10 Dose: 2 each Polyethylene Glycol (Miralax) 17 gm PO DAILY [facility] Last Admin: 11/07/17 08:16 Dose: Not Given Sodium Chloride (Normal Saline Flush 0.9%) 10 ml IVP PRN PRN PRN Reason: NEEDED PER PROVIDER ORDERS Last Admin: 11/07/17 01:48 Dose: 10 ml Sodium Chloride (Normal Saline Flush 0.9%) 10 ml IVP 0100,0900,1700 ESTELITA Last Admin: 11/07/17 16:52 Dose: 10 ml Sodium Chloride (Normal Saline Flush 0.9%) 20 ml IVP PRN PRN PRN Reason: After Blood Draw Temazepam (Restoril) 15 mg PO QPM PRN PRN Reason: Insomnia Cholecalciferol (Vitamin D3) [Vitamin D3] 2,000 unit PO DAILY 07/17/17 Acyclovir 400 mg PO DAILY 10/10/17 Midostaurin [Rydapt] 50 mg PO BID MDD Days 8-21 (14 days) 10/25/17 Sulfamethoxazole/Trimethoprim [Sulfamethoxazole-Tmp Ds Tablet] 1 each PO MOWE@ 0900,2100 MDD 800/160 mg tabs 11/01/17 Objective - Vital Signs/Intake & Output Reviewed Vital Signs: Yes Intake & Output: Intake & Output 11/04/17 11/05/17 11/06/17 11/07/17 23:59 23:59 23:59 23:59 Intake Total 2290 3030 1870 980 Balance 2290 3030 1870 980 - Objective General Appearance: positive: No acute distress, Alert. negative: Lethargic Eyes Bilateral: positive: Normal inspection, PERRL, No lid inflammation, Conjunctivae nml ENT: positive: ENT inspection nml, Pharynx nml, No signs of dehydration. negative: Purulent nasal drainage, Pharyngeal erythema, Oral lesions Neck: positive: Nml inspection, Thyroid nml, No JVD, Trachea midline. negative : Thyromegaly, Lymphadenopathy (R), Lymphadenopathy (L), Stiff neck, Carotid bruit, Swelling/bruising, Tracheal deviation Respiratory: positive: Chest non-tender, No respiratory distress, Breath sounds nml. negative: Wheezes, Rales, Rhonchi Cardiovascular: positive: Regular rate & rhythm, No murmur, No gallop. negative : Irregularly irregular, Extrasystoles, Tachycardia, Bradycardia, Systolic murmur, Diastolic murmur Peripheral Pulses: 2+ Radial (R), 2+ Radial (L), 2+ Dorsalis pedis (R), 2+ Dorsalis pedis (L) Abdomen: positive: Non-tender, No organomegaly, Nml bowel sounds, No distention. negative: Tenderness, Guarding, Rebound Back: positive: Nml inspection. negative: CVA tenderness (R), CVA tenderness (L ) Skin: positive: Color nml, No rash, Warm, Dry. negative: Cyanosis, Diaphoresis , Pallor Extremities: positive: Non-tender, Full ROM, Nml appearance. negative: Calf tenderness, Joint swelling, Meaghan's sign/cords Neurologic/Psychiatric: positive: Oriented x3, Motor nml, Sensation nml. negative: Sensory loss, Facial droop, Slurred/abnml speech, Depressed mood/ affect - Lab Results Fish Bones: 11/07/17 04:44 11/07/17 04:44 Other Labs: Lab Results x24hrs 11/07/17 11/07/17 Range/Units 04:44 04:44 WBC 1.1 L* (4.8-10.8) x10^3/uL RBC 2.85 L (4.20-5.40) 10^6/uL Hgb 8.9 L (12.0-16.0) g/dL Hct 25.8 L (37.0-47.0) % MCV 90.6 (81.0-99.0) fL MCH 31.1 H (27.0-31.0) pg MCHC 34.3 (32.0-36.0) g/dL RDW 17.5 H (12.0-15.0) % Plt Count 107 L (130-450) 10^3/uL MPV 8.5 (7.9-10.8) fL Neut # 0.1 L* (1.5-6.6) 10^3/uL Lymph # 0.6 L (1.5-3.5) 10^3/uL Pratt # 0.4 (0.0-1.0) 10^3/uL Eos # 0.0 (0.0-0.7) 10^3/uL Baso # 0.0 (0.0-0.1) 10^3/uL Absolute Nucleated RBC 0.00 x10^3/uL Total Counted [employer] Band Neuts % (Manual) Not Reportable Abnorm Lymph % (Manual) Not Reportable Nucleated RBC % 0.4 /100WBC Neutrophils # (Manual) Not Reportable Lymphocytes # (Manual) Not Reportable Monocytes # (Manual) Not Reportable Eosinophils # (Manual) Not Reportable Basophils # (Manual) Not Reportable Differential Comment MANUAL=AUTO DIFF Platelet Estimate DECREASED (<130,000) (NORMAL) Platelet Morphology 1+ LARGE PLATELETS (NORMAL) RBC Morph Micro Appear 1+ MICROCYTOSIS (NORMAL) Sodium 139 (135-145) mmol/L Potassium 3.7 (3.5-5.0) mmol/L Chloride 103 (101-111) mmol/L Carbon Dioxide 31 (21-32) mmol/L Anion Gap 5.0 L (6-13) BUN 7 (6-20) mg/dL Creatinine 0.5 (0.4-1.0) mg/dL Estimated GFR (MDRD) 121 (>89) Glucose 102 H (70-100) mg/dL Calcium 8.6 (8.5-10.3) mg/dL Total Bilirubin 0.5 (0.2-1.0) mg/dL AST 17 (10-42) IU/L ALT 20 (10-60) IU/L Alkaline Phosphatase 64 (42-121) IU/L Total Protein 5.7 L (6.7-8.2) g/dL Albumin 2.7 L (3.2-5.5) g/dL Globulin 3.0 (2.1-4.2) g/dL Albumin/Globulin Ratio 0.9 L (1.0-2.2) Assessment/Plan - Problem List (1) Pseudomonas aeruginosa infection Impression: (1) Pseudomonas aeruginosa infection Assessment/Plan: pt's central line was removed. and PICC was inserted to pt now, plan pt to be d/ c on tomorrow to MAC to continue tid IV of Cefepime for two weeks, per ID recommendation. follow up ID recommendation. bacterial sensitive study reveals sensitivity to Cefepime. finish blood transfusion and platelet transfusion discuss with RN to remove central line, and will call PICC anesthesia, after transfusion, to insert PICC The patient has positive preliminary blood cultures of pseudomonas aeruginosa. Oncology clinic Dr. Chamorro requests a consult call to [place] infectious disease which I called Dr. Tural; The case was reviewed including primary diagnosis of AML and ongoing treatment of oral agent, the incident of the patient accidentally biting her internal right cheek which presented as cellulitis, lab review, admitted for neutropenic fever, blood culture results, current antibiotic used, current central line, and current state of mild improvement. He suggests that the current antibiotic (Cefapime) be continued and once culture sensitivities result, she should be continued on 2 weeks of antibiotic therapy. He suggests that we pull her upper right chest port and insert a semi-permanent central line (PICC). Once the 2 week treatment is achieved, then re-insert a permanent line for ongoing chemotherapy. He cautioned that this is a serious pathogen, so appropriate treatment is important. General surgery was contacted for central line removal, who believes that the current upper right chest line is one that can easily be removed. I appreciate their assistance. Anesthesia electronic security specialist was contacted for PICC insertion in preparation for possibly later this evening, but likely tomorrow AM due to blood/platelet administration. Plan: 1.) Complete blood transfusion and platelet transfusions to prepare for line exchange procedures. 2.) Re-check labs in AM to ensure the patient has responded to product replacement. 3.) Have nursing or medical staff remove current upper chest port. 4.) Call anesthesia, (PICC order already placed) when chest port is removed for a new PICC placement to carry out IV treatment of pseudomonas bacteremia. 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 Pt's oncologist will see pt today afternoon , will follow up recommendation. pt's pancocytopen is improved on today lab continue the care of her oncologist continue daily lab test vital monitor The patient is under the care of our [facility] [place] clinic, Dr. Chamorro/Dr. Whittaker. 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 She has completed one induction therapy from 08/22/2017-08/28, and was to follow up with Dr. Whittaker on 10/24/2017. She is also a possible candidate for a donor transplant (allontransplant), although this is still being worked on. She continues on oral treatment of Rydapt BID as per oncologist. Neutrophil counts remain "0", although, this is not thought to be a contraindication for continued oral treatment. Today WBC was improved slightly at 0.5, Neut # remain unreportable. Plan: Monitor neutrophil counts, WBC and clinical well being. Continue oral chemo as per oncology clinic. (3) Cellulitis of right internal cheek Assessment/Plan: better, the erythema and tenderness is great improved. continue antibiotics, and pain control continue pain control continue antibiotics Upon exam, the patient's right cheek is swollen and sore as per patient report. She remembers accidentally biting her cheek a few weeks ago. Per chart review , this was noted in her latest MAC/oncology progress note by Marleen MCCONNELL. She was started on Bactrim and Cipro for this but, unfortunately, developed a neutropenic fever the evening before this admission. Upon exam, she states that she did not take the Cipro in fear of having "tendon rupture" as a complication since activity is so important to her. Blood cultures x2 were drawn and preliminary reports show pseudomonas aeruginosa that were obtained on 11/02/17, and the other culture remains no growth to date. She admits to needing oxycodone & tylenol for pain relief for her swollen right cheek and jaw. Plan: Monitor pain and inspect right cheek daily. (4) Febrile neutropenia Assessment/Plan: no fever, chill and night sweating. no fever since admitted continue antibiotics continue daily lab test Patient had a temp max of 39.6 orally after arriving to the ED that has now subsided and her last fever was 11/04/17 ~0730am; was charted as 37.6, and patient denies symptoms of chills or sweats. Patient is encouraged to use ice and heat for soothing right cheek pain. Plan: Continue treatment of underlying infection, treat fevers with tylenol, monitor labs, and await final sensitivities. (5) Pancytopenia Assessment/Plan: improvement of pancytopenia continue lab test continue antibiotics treatment Patient is expected to have pancytopenia as a consequence of her current chemotherapy which is PO midostaurin (Rydapt) BID. We are monitoring WBC count/ neutrophil counts daily. ENEDINA Benson from [facility] oncology confirmed the correct dosing today re; Rydapt BID PO is to continue despite complications of low platelets, low RBCs, low WBCs, and zero neutrophils. Plan: Continue current treatment of bacteremia, right cheek cellulitis and monitor labs daily to be drawn off central line as per patient request.
[2017-11-08] MEDS: CEFEPIME 2 GM in SODIUM CHLORIDE 0.9% MINIBAG 100 ML IV SCH ×3 (01:07→15:56)
[2017-11-08] MEDS: SODIUM CHLORIDE FLUSH 0.9% 10 ML SYRINGE IVP SCH ×2 (01:07→09:05)
[2017-11-08] MEDS: ACETAMINOPHEN 325 MG TABLET PO PRN ×3 (02:04→16:13)
[2017-11-08] MEDS: oxyCODONE 5 MG TABLET PO PRN ×3 (02:04→16:14)
[2017-11-08 05:28] LABS: BASOPHILS % (AUTO) 0.2 %; EOSINOPHILS % (AUTO) 0.1 %; HGB - HEMOGLOBIN 8.8 g/dL (12.0-16.0); LYMPHOCYTES # (AUTO) 0.6 10^3/uL (1.5-3.5); LYMPHOCYTES % (AUTO) 44.6 %; MEAN CORPUSCULAR HEMOGLOBIN 30.6 pg (27.0-31.0); MEAN CORPUSCULAR HGB CONC 33.3 g/dL (32.0-36.0); MEAN CORPUSCULAR VOLUME 91.9 fL (81.0-99.0); MEAN PLATELET VOLUME 8.5 fL (7.9-10.8); MONOCYTES # (AUTO) 0.5 10^3/uL (0.0-1.0); MONOCYTES % (AUTO) 32.1 %; PLT - PLATELET COUNT 145 10^3/uL (130-450); RED BLOOD COUNT 2.87 10^6/uL (4.20-5.40)
[2017-11-08 05:41] LABS: ALBUMIN 2.7 g/dL (3.2-5.5); ALBUMIN/GLOBULIN RATIO 0.9 (1.0-2.2); BILIRUBIN,TOTAL 0.2 mg/dL (0.2-1.0); CALCIUM 8.6 mg/dL (8.5-10.3); CREATININE 0.4 mg/dL (0.4-1.0); TOTAL PROTEIN 5.6 g/dL (6.7-8.2)
[2017-11-08 06:03] LABS: NEUTROPHILS # (AUTO) 0.3 10^3/uL (1.5-6.6); WHITE BLOOD COUNT 1.4 x10^3/uL (4.8-10.8)
[2017-11-08 06:11] LABS: PLATELET ESTIMATE, MANUAL NORMAL (130-450,000) (NORMAL); PLATELET MORPHOLOGY NORMAL APPEARANCE (NORMAL)
[2017-11-08] MEDS: ACYCLOVIR 200 MG CAPSULE PO SCH (09:07)
[2017-11-08] MEDS: CHOLECALCIFEROL 1,000 UNIT TABLET PO SCH (09:07)
[2017-11-08] MEDS: FLUCONAZOLE 100 MG TABLET PO SCH (09:07)
[2017-11-08] MEDS: FAMOTIDINE 20 MG TABLET PO SCH (09:08)
[2017-11-08] MEDS: POLYETHYLENE GLYCOL 3350 17 GM PACKET PO SCH (09:09)
[2017-11-08] MEDS: RYDAPT 25 MG PO SCH (09:09)
--- NOTE | 2017-11-08 12:17 | Discharge Plan ---
Discharge Plan Disposition: 06 Home Health Service Condition: Poor Prescriptions: oxyCODONE [Roxicodone] 5 mg PO Q4HR PRN #20 tablet PRN Reason: Pain Cefepime 2 gm IV Q8H #42 vial Diet: Regular Activity Restrictions: Activity as Tolerated Shower Restrictions: No (caregiver closely monitor, fall precaution) Weight Bearing: Full Weight Instruction Topics: Cefepime injection, Oxycodone tablets or capsules, ED Bacteremia Rule Out, ED Fever Unconf Cause Ch Additional Instructions or Follow Up instructions: May follow up oncologist as the schedule, and PCP in 2-3 days, may present MAC clinic TID at 0830, 1530, and 2200 for Cefepime infusion for two weeks. Should symptoms return or worsen, may present ER or call 911 for help Follow-Up Care: [facility] - Medical No Smoking: If you smoke, Please STOP! Call for help. Follow-up with: Мария Senior DO [Primary Care Provider] -
--- NOTE | 2017-11-08 14:18 | DISCHARGE SUMMARY ---
"Discharge Summary Discharge Date: 11/08/17 Discharging Provider: SHANKAR Primary Care Provider: Мария Knight Condition at Discharge: Good Discharge Disposition: Home Health Service Discharge Facility Name: home - DIAGNOSES Admission Diagnoses: (1) Cellulitis of right internal cheek (2) Pancytopenia (3) Febrile neutropenia (4) Acute myelogenous leukemia Discharge Diagnoses with Status of Each Condition: (1) Pseudomonas aeruginosa infection/ bacteremia blood culture reveals positive of Pseudomonas aeruginosa. Afebrile after treatment at hospital. Tid of Cefepime infusion was recommended by ID for two weeks after d/c. Pt is arranged tid infusion of Cefepime at [facility]. (2) Acute myelogenous leukemia follow up closely by pt's oncologist as out-pt (3) Cellulitis of right internal cheek great improved, continue infusion of antibiotics in [facility] (4) Febrile neutropenia resolved febrile. Neutropenia is gradually improved, follow up infusion of antibiotics (5) Pancytopenia significant gradually improved. follow up closely by pt's oncologist as out-pt - HPI History of Present Illness: refer from Dr. Howard's HPI to pt - CONSULTS | PROCEDURES Consultations: Kath JOSEPH - HOSPITAL COURSE Hospital Course: pt was admitted febrile pancocytopenia status post chemotherapy for pt's AML. later blood culture reveals pt has Pseudomonas aeruginosia bacteremia. Kath Hernandez ID was consulted. Per ID' s recommendation, Pt's central line was removed, new PICC line was added to pt, pt is scheduled to have two weeks of infusion of Cefepime at [facility]. Oncologist saw pt at 11/07/17 at hospital, pt is advised to follow up closely with her oncologist. - ALLERGIES Allergies/Adverse Reactions: Allergies Allergy/AdvReac Type Severity Reaction Status Date / Time amoxicillin Allergy Unknown Verified 11/02/17 20:28 latex Allergy Unknown Verified 11/02/17 20:28 levofloxacin Allergy Unknown Verified 11/02/17 20:28 Penicillins Allergy Unknown Verified 11/02/17 20:28 paradex Allergy Unknown Uncoded 11/02/17 20:28 - MEDICATIONS Home Medications: Ambulatory Orders Medication Instructions Recorded Confirmed Cholecalciferol (Vitamin D3) 2,000 unit PO DAILY 07/17/17 11/03/17 [Vitamin D3] Acyclovir 400 mg PO DAILY 10/10/17 11/03/17 Midostaurin [Rydapt] 50 mg PO BID MDD Days 8-21 (14 10/25/17 11/03/17 days) Fluconazole 400 mg PO DAILY #30 tablet 10/31/17 11/03/17 Cefepime 2 gm IV Q8H #42 vial 11/08/17 oxyCODONE [Roxicodone] 5 mg PO Q4HR PRN #20 tablet 11/08/17 - PHYSICAL EXAM AT DISCHARGE General Appearance: positive: No acute distress, Alert. negative: Lethargic Eyes Bilateral: positive: Normal inspection, PERRL, No lid inflammation, Conjunctivae nml ENT: positive: ENT inspection nml, Pharynx nml, No signs of dehydration. negative: Purulent nasal drainage, Pharyngeal erythema, Oral lesions Neck: positive: Nml inspection, Thyroid nml, No JVD, Trachea midline. negative : Thyromegaly, Lymphadenopathy (R), Lymphadenopathy (L), Stiff neck, Carotid bruit, Swelling/bruising, Tracheal deviation Respiratory: positive: Chest non-tender, No respiratory distress, Breath sounds nml. negative: Wheezes, Rales, Rhonchi Cardiovascular: positive: Regular rate & rhythm, No murmur, No gallop. negative : Irregularly irregular, Extrasystoles, Tachycardia, Bradycardia, Systolic murmur, Diastolic murmur Peripheral Pulses: positive: 2+ Abdomen: positive: Non-tender, No organomegaly, Nml bowel sounds, No distention. negative: Tenderness, Guarding, Rebound Back: positive: Nml inspection. negative: CVA tenderness (R), CVA tenderness (L ) Skin: positive: Color nml, No rash, Warm, Dry. negative: Cyanosis, Diaphoresis , Pallor Extremities: positive: Non-tender, Full ROM, Nml appearance. negative: Calf tenderness, Joint swelling, Meaghan's sign/cords Neurologic/Psychiatric: positive: Oriented x3, Sensation nml. negative: Sensory loss, Facial droop, Slurred/abnml speech, Depressed mood/affect - LABS Result Diagrams: 11/08/17 05:10 11/08/17 05:10 - FOLLOW UP Follow Up: May follow up oncologist as the schedule, and PCP in 2-3 days, may present MAC clinic TID at 0830, 1530, and 2200 for Cefepime infusion for two weeks. Should symptoms return or worsen, may present ER or call 911 for help - TIME SPENT Time Spent in Discharge (Minutes): 55"
[2017-11-08] MEDS ORDERED: SODIUM CHLORIDE FLUSH 0.9% 10 ML SYRINGE ONE ×2 (15:47→22:11)
[2017-11-08 17:28] VITALS: BP 144/63
--- NOTE | 2017-11-13 16:54 | ONCOLOGY / HEMATOLOGY ---
DATE OF SERVICE: 11/07/2017 Physician: Roxanne Whittaker MD [facility] INPATIENT CONSULTATION ASSESSMENT AND PLAN 1. Acute myeloid leukemia (AML) status post induction and first cycle of consolidation. Patient has been admitted for neutropenic fever with the cultures growing Pseudomonas aeruginosa, which is sensitive to cefepime, ciprofloxacin, levofloxacin, gentamicin, and imipenem and tobramycin. Patient is recovering from the same. At this point, she has finished her day 21 of midostaurin as of today. She will no longer take the midostaurin at this point. 2. She will return to clinic in 1 week with labs. She will continue to take outpatient IV antibiotics as arranged by the hospitalist team. For the consolidation, it is on hold until she finishes her IV antibiotic therapy for pseudomonas. Patient was reassured. Thank you for taking care of this patient. Please feel free to call us with any questions. CHIEF COMPLAINT/HISTORY OF PRESENT ILLNESS: Patient has been admitted to the hospital due to neutropenic fever, and her cultures are growing Pseudomonas aeruginosa. Patient reports that her fevers have now subsided. She also reports that her breathing is better. She does feel fatigued overall. REVIEW OF SYSTEMS: As per HPI. All others negative. PHYSICAL EXAMINATION VITAL SIGNS: Reviewed as per chart. HEENT: Pallor present. Oral mucosa moist. No cervical or supraclavicular lymphadenopathy noted. LUNGS: Bilateral air entry equal and adequate. HEART: S1, S2 heard. Regular rhythm. ABDOMEN: Soft, nontender. EXTREMITIES: Arthritic changes present. PSYCHIATRIC: Appropriate affect. NEUROLOGIC: No focal findings. RESULTS REVIEWED: I reviewed the results of her cultures, which grew Pseudomonas aeruginosa. This sensitive to cefepime, gentamicin, ciprofloxacin, levofloxacin, imipenem, and tobramycin. Unfortunately, patient cannot take fluoroquinolones because of previous reaction to the same. I spent 40 minutes, more than 50% of which was face to face in direct patient consultation and formulating a treatment plan going forward for her known history of AML and recent neutropenic fever and infection. correction to acct/date done 11/19/17 carmela TD: 11/13/2017 02:32 SARAH
== END 2017-11-08 17:37 | disposition home or self-care (01) | DRG 809 ==
LOC: ED 20:14 → MS2 11-03 01:16
PROVIDERS: ADMIT Internal Medicine; ATTEND Nurse Practitioner Gerontology
PROC: 30243N1 Transfusion of Nonautologous Red Blood Cells into Central Vein, Percutaneous Approach (ICD-10-PCS; principal; 2017-11-03)
PROC: 30233K1 Transfusion of Nonautologous Frozen Plasma into Peripheral Vein, Percutaneous Approach (ICD-10-PCS; 2017-11-05)
PROC: 02HV33Z Insertion of Infusion Device into Superior Vena Cava, Percutaneous Approach (ICD-10-PCS; 2017-11-07)
PROC: 02PYX3Z Removal of Infusion Device from Great Vessel, External Approach (ICD-10-PCS; 2017-11-07)
DX: D70.9 Neutropenia, unspecified (principal); D70.1 Agranulocytosis secondary to cancer chemotherapy; L03.211 Cellulitis of face; C92.00 Acute myeloblastic leukemia, not having achieved remission; K12.2 Cellulitis and abscess of mouth; E87.1 Hypo-osmolality and hyponatremia; R78.81 Bacteremia; R50.81 Fever presenting with conditions classified elsewhere; X58.XXXA Exposure to other specified factors, initial encounter; B96.5 Pseudomonas (aeruginosa) (mallei) (pseudomallei) as the cause of diseases classified elsewhere; T45.1X5A Adverse effect of antineoplastic and immunosuppressive drugs, initial encounter; I51.7 Cardiomegaly; Z91.128 Patient's intentional underdosing of medication regimen for other reason; Z95.828 Presence of other vascular implants and grafts; Z88.1 Allergy status to other antibiotic agents; Z88.0 Allergy status to penicillin
CPT/HCPCS: 36415; 70487; 71045; 71046; 80048; 80053; 81001; 81003; 82652; 83605; 83690; 83735; 85025; 85610; 85651; 85730; 86140; 86850; 86900; 86901; 86920; 87040; 87086; 93306; 96365; 96367; 96368; 99233; 99284

== ENCOUNTER 2017-12-10 20:58 | Inpatient (IN) | payer MEDICARE, BC ==
[2017-12-10] MEDS ORDERED: SODIUM CHLORIDE 0.9% 1,000 ML IV ONE (21:40)
[2017-12-10] MEDS ORDERED: ACETAMINOPHEN 500 MG TABLET PO STA (21:40)
[2017-12-10 21:59] LABS: EOSINOPHILS % (AUTO) 4.1 %; HGB - HEMOGLOBIN 7.2 g/dL (12.0-16.0); LYMPHOCYTES # (AUTO) 0.1 10^3/uL (1.5-3.5); LYMPHOCYTES % (AUTO) 93.5 %; MEAN CORPUSCULAR HEMOGLOBIN 31.6 pg (27.0-31.0); MEAN CORPUSCULAR HGB CONC 33.5 g/dL (32.0-36.0); MEAN CORPUSCULAR VOLUME 94.2 fL (81.0-99.0); MEAN PLATELET VOLUME 8.7 fL (7.9-10.8); MONOCYTES % (AUTO) 0.9 %; NEUTROPHILS % (AUTO) 1.5 %; RED BLOOD COUNT 2.28 10^6/uL (4.20-5.40); RED CELL DISTRIBUTION WIDTH 18.5 % (12.0-15.0)
[2017-12-10 22:03] LABS: PLT - PLATELET COUNT 15 10^3/uL (130-450); WHITE BLOOD COUNT 0.1 x10^3/uL (4.8-10.8)
[2017-12-10 22:06] LABS: ALBUMIN 3.4 g/dL (3.2-5.5); ALBUMIN/GLOBULIN RATIO 1.2 (1.0-2.2); CALCIUM 8.9 mg/dL (8.5-10.3); CREATININE 0.7 mg/dL (0.4-1.0); TOTAL PROTEIN 6.3 g/dL (6.7-8.2)
[2017-12-10 22:06] LABS: BILIRUBIN,URINE NEGATIVE (NEGATIVE); GLUCOSE, URINE (UA) NEGATIVE (NEGATIVE); KETONES,URINE (UA) NEGATIVE (NEGATIVE); LEUKOCYTE ESTERASE, URINE NEGATIVE (NEGATIVE); NITRITE,URINE NEGATIVE (NEGATIVE); OCCULT BLOOD,URINE SMALL (NEGATIVE); PROTEIN,URINE TRACE mg/dL (NEGATIVE); UROBILINOGEN,URINE 0.2 (NORMAL) E.U./dL (NORMAL)
[2017-12-10 22:09] LABS: CLARITY,URINE CLEAR (CLEAR)
[2017-12-10 22:25] LABS: BACTERIA,URINE None Seen /HPF (None Seen); MUCUS,URINE Few Strands; RBC,URINE 0-5 /HPF (0-5); SQUAMOUS EPITHELIAL CELL,UR RARE Squamous (<= Few)
--- NOTE | 2017-12-10 22:25 | XRAY Report ---
EXAM: CHEST RADIOGRAPHY EXAM DATE: 12/10/2017 10:05 PM. CLINICAL HISTORY: 11/07/2017 COMPARISON: None. TECHNIQUE: 1 view. FINDINGS: Lungs/Pleura: No focal opacities evident. No pleural effusion. No pneumothorax. Mediastinum: Within exam limitations, the cardiomediastinal contour is normal. Other: Right PICC line tip in the middle third SVC. IMPRESSION: 1. No focal pneumonia seen. 2. Right PICC line tip in the middle third SVC. ASHLEIGHA Referring Provider Line: [phone] SITE ID: [id number]
[2017-12-10 22:29] LABS: DIFFERENTIAL COMMENT MANUAL=AUTO DIFF
[2017-12-10] MEDS ORDERED: VANCOMYCIN INJ 1.25 GM in SODIUM CHLORIDE 0.9% 500 ML IV STA (22:58)
[2017-12-10] MEDS ORDERED: CEFEPIME 2 GM in SODIUM CHLORIDE 0.9% MINIBAG 100 ML IV STA (23:15)
--- NOTE | 2017-12-10 23:16 | ED Physician Documentation ---
PD HPI FEVER - Stated complaint Stated Complaint: FEVER - Chief complaint Chief Complaint: Fever - History obtained from History obtained from: Patient, Family - History of Present Illness Timing - onset: Today Timing details: Gradual onset, Still present Associated symptoms: Chills. No: Sweats, Rigors, Nasal congestion, Rhinorrhea Contributing factors: Immunocompromised. No: Sick contact Recently seen: Clinic - Additional information Additional information: Patient is a 72 year old female with a history of aml, last dose of IV chemo november 29, but on daily oral chemo who is presenting to the emergency department for fever. patient states that she developed a fever today and called the product distribution specialist oncologist and patient was told to come to the emergency department. patient states that she has mild tongue pain but no rashes, shortness of breath , cough or urinary complaints. Patient did have an infected port in the past and has an indewelling picc line in her right upper extremity. Review of Systems Constitutional: reports: Fever. denies: Chills Eyes: denies: Discharge, Irritation Ears: denies: Ear pain Throat: reports: Oral lesions / sores Cardiac: denies: Chest pain / pressure Respiratory: denies: Dyspnea GI: reports: Abdominal Pain. denies: Nausea, Vomiting : denies: Dysuria, Hesitancy Skin: denies: Rash, Lesions, Abrasion (s) Musculoskeletal: denies: Neck pain, Extremity pain, Joint pain Neurologic: denies: Generalized weakness, Headache, Head injury Immunocompromised: reports: Immunocompromised, Chemotherapy PD PAST MEDICAL HISTORY - Past Medical History Cardiovascular: None Respiratory: None Endocrine/Autoimmune: None GI: None : None Psych: None Musculoskeletal: None Derm: None - Past Surgical History Past Surgical History: Yes General: Appendectomy HEENT: Tonsil/Adenoidectomy - Present Medications Home Medications: Ambulatory Orders Medication Instructions Recorded Confirmed Cholecalciferol (Vitamin D3) 2,000 unit PO DAILY 07/17/17 12/05/17 [Vitamin D3] Acyclovir 400 mg PO DAILY 10/10/17 12/05/17 Midostaurin [Rydapt] 50 mg PO BID MDD Days 8-21 (14 10/25/17 12/05/17 days) oxyCODONE [Roxicodone] 5 mg PO Q4HR PRN #20 tablet 11/08/17 12/05/17 Fluconazole 400 mg PO DAILY #60 tablet 12/10/17 Lidocaine Viscous 2% [Xylocaine 15 ml MM AC PRN #1 bottle 12/10/17 Viscous 2%] - Allergies Allergies/Adverse Reactions: Allergies Allergy/AdvReac Type Severity Reaction Status Date / Time amoxicillin Allergy Unknown Verified 12/10/17 21:30 latex Allergy Unknown Verified 12/10/17 21:30 levofloxacin Allergy Unknown Verified 12/10/17 21:30 Penicillins Allergy Unknown Verified 12/10/17 21:30 paradex Allergy Unknown Uncoded 12/10/17 21:30 - Social History Does the pt smoke?: No Smoking Status: Never smoker Does the pt drink ETOH?: Yes Does the pt have substance abuse?: No - POLST Patient has POLST: No PD ED PE NORMAL - Vitals Vital signs reviewed: Yes - General General: Alert and oriented X 3, No acute distress - HEENT HEENT: Atraumatic, Moist mucous membranes - Neck Neck: Supple, no meningeal sign - Cardiac Cardiac: RRR - Respiratory Respiratory: No respiratory distress - Abdomen Abdomen: Soft, Non tender, Non distended - Derm Derm: Normal color, No rash - Neuro Neuro: Alert and oriented X 3, No motor deficit, Normal speech Eye Opening: Spontaneous PD ED PE EXPANDED - Extremities Extremities: Other (picc line in right upper extremity but no other sign of infection) Results - Vitals Vitals: Vital Signs - 24 hr 12/10/17 12/10/17 12/10/17 21:21 23:05 23:20 Temperature 38.2 C H Heart Rate 83 85 67 Respiratory 16 16 16 Rate Blood Pressure 148/66 H 122/51 L 123/54 L O2 Saturation 97 95 94 12/10/17 23:36 Temperature 37.9 C H Heart Rate Respiratory Rate Blood Pressure O2 Saturation Oxygen O2 Source Room air - Labs Labs: Laboratory Tests 12/10/17 12/10/17 12/10/17 21:45 21:45 21:45 WBC 0.1 L* RBC 2.28 L Hgb 7.2 L Hct 21.4 L MCV 94.2 MCH 31.6 H MCHC 33.5 RDW 18.5 H Plt Count 15 L* MPV 8.7 Neut # 0.0 L* Lymph # 0.1 L Gibson # 0.0 Eos # 0.0 Baso # 0.0 Absolute Nucleated RBC 0.00 Band Neuts % (Manual) Not Reportable Abnorm Lymph % (Manual) Not Reportable Nucleated RBC % 2.0 Neutrophils # (Manual) Not Reportable Lymphocytes # (Manual) Not Reportable Monocytes # (Manual) Not Reportable Eosinophils # (Manual) Not Reportable Basophils # (Manual) Not Reportable Differential Comment MANUAL=AUTO DIFF Sodium 134 L Potassium 3.8 Chloride 100 L Carbon Dioxide 24 Anion Gap 10.0 BUN 19 Creatinine 0.7 Estimated GFR (MDRD) 82 L Glucose 187 H Lactic Acid Calcium 8.9 Total Bilirubin 1.0 AST 34 ALT 38 Alkaline Phosphatase 89 B-Natriuretic Peptide 56 Total Protein 6.3 L Albumin 3.4 Globulin 2.9 Albumin/Globulin Ratio 1.2 Lipase 23 Urine Color Urine Clarity Urine pH Ur Specific [place] Urine Protein Urine Glucose (UA) Urine Ketones Urine Occult Blood Urine Nitrite Urine Bilirubin Urine Urobilinogen Ur Leukocyte Esterase Urine RBC Urine WBC Ur Squamous Epith Cells Urine Bacteria Urine Mucus Ur Microscopic Review Urine Culture Comments Influenza A (Rapid) Influenza B (Rapid) 12/10/17 12/10/17 12/10/17 21:53 21:53 22:00 WBC RBC Hgb Hct MCV MCH MCHC RDW Plt Count MPV Neut # Lymph # Gibson # Eos # Baso # Absolute Nucleated RBC Band Neuts % (Manual) Abnorm Lymph % (Manual) Nucleated RBC % Neutrophils # (Manual) Lymphocytes # (Manual) Monocytes # (Manual) Eosinophils # (Manual) Basophils # (Manual) Differential Comment Sodium Potassium Chloride Carbon Dioxide Anion Gap BUN Creatinine Estimated GFR (MDRD) Glucose Lactic Acid 1.7 Calcium Total Bilirubin AST ALT Alkaline Phosphatase B-Natriuretic Peptide Total Protein Albumin Globulin Albumin/Globulin Ratio Lipase Urine Color YELLOW Urine Clarity CLEAR Urine pH 5.0 Ur Specific [place] >=1.030 H Urine Protein TRACE Urine Glucose (UA) NEGATIVE Urine Ketones NEGATIVE Urine Occult Blood SMALL H Urine Nitrite NEGATIVE Urine Bilirubin NEGATIVE Urine Urobilinogen 0.2 (NORMAL) Ur Leukocyte Esterase NEGATIVE Urine RBC 0-5 Urine WBC 0-3 Ur Squamous Epith Cells RARE Squamous Urine Bacteria None Seen Urine Mucus Few Strands Ur Microscopic Review INDICATED Urine Culture Comments NOT INDICATED Influenza A (Rapid) Negative Influenza B (Rapid) Negative - Rads (name of study) chest x-ray Radiology: Final report received (no focal infiltrate) PD MEDICAL DECISION MAKING - ED course Complexity details: reviewed old records, reviewed results, re-evaluated patient , considered differential, d/w patient, d/w family, d/w residential solar consultant ED course: Patient was seen and examined at bedside. Iv access was gained and labs were drawn including blood cultures. Patient was treated with a fluid bolus and tylenol. Chest x-ray was performed. patient was found to have wbc of 0.1 and ANC of 0. Patient's oncologist, Dr. Whittaker was contacted and the case was discussed with the covering physician who recommended inpatient admission and IV antibiotics. Case was discussed with the Hospitalist, Dr. Coles and patient was started on vanco and cefepime. Patient was accepted by him and patient was admitted for further evaluation and care. Departure - Departure Disposition: 66 [facility] DC/Xfer Clinical Impression: Neutropenic fever Condition: Stable
[2017-12-10] MEDS ORDERED: LIDOCAINE VISCOUS 2% 100 ML BOTTLE MM PRN (23:32)
[2017-12-10] MEDS ORDERED: ZOLPIDEM 5 MG TABLET PO PRN (23:38)
[2017-12-10] MEDS ORDERED: PROCHLORPERAZINE 10 MG/2 ML VIAL IVP PRN (23:38)
[2017-12-10] MEDS ORDERED: ONDANSETRON 4 MG/2 ML VIAL IVP PRN (23:38)
[2017-12-10] MEDS ORDERED: PROMETHAZINE 25 MG/1 ML VIAL IM PRN (23:38)
[2017-12-10] MEDS ORDERED: VANCOMYCIN PER PHARMACY 1 GM in SODIUM CHLORIDE 0.9% 250 ML IV SCH (23:45)
--- NOTE | 2017-12-11 00:04 | HISTORY & PHYSICAL EXAMINATION ---
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 The patient was found to have had an infection of her IV line and had it replaced with a right arm PICC line. The patient states that she just completed her second cycle of consolidation therapy on 11-29-17 and then was started on oral chemotherapy with midostaurin and has been doing well since. She states that she saw her oncologist just last week and a follow-up and was given a platelet transfusion the following day. She states that yesterday she went for a walk and she has been feeling great. The patient denies any recent coughing, chest pain, shortness of air, abdominal pain, nausea, vomiting, diarrhea, urinary urgency, urinary frequency, or dysuria. She states that she woke up this morning and was feeling well and then this afternoon when she checked her temperature she had spiked a fever she states that she began to feel warm and she rechecked her' s temperature later in the evening it was still elevated and therefore she decided she needed to come into the emergency department because she was told that if she has a fever she needs to go to the ER. She states that the only abnormal thing that she is found is that she has noticed her tongue was a little bit swollen and she has some sores in her mouth. She denies any throat pain or any difficulty swallowing. The patient denies any headaches, blurred vision, runny nose, sore throat, nasal congestion, difficulty swallowing, orthopnea, PND, increased lower extremity swelling, joint pains, muscle aches, joint swelling, back pain, neck stiffness, focal neurologic deficits, changes in her appetite, skin rashes, or any night sweats. On presentation to the emergency department the patient was febrile with a temperature of 38.2 otherwise her vital signs were within normal limits. The patient was saturating well on room air. The patient underwent routine lab work which revealed a neutrophil count of 0 and a WBC count of 0.1. The patient otherwise had normal electrolytes aside from a sodium of 134. The patient's urinalysis had small occult blood but otherwise was negative. The patient had a negative influenza. The patient underwent an x-ray of her chest which showed no focal pneumonia. The patient's PICC line did not appear to have any surrounding erythema or pus. The patient underwent blood cultures and was admitted to the medical hale with IV vancomycin and cefepime for treatment of neutropenic fever with unknown source. History - Past Medical History Cardiovascular: reports: None Respiratory: reports: None Endocrine/Autoimmune: reports: None GI: reports: None : reports: None Psych: reports: None Musculoskeletal: reports: None Derm: reports: None MRSA Hx?: No Other Past Medical History: Acute myeloid leukemia - Past Surgical History General: reports: Appendectomy HEENT: reports: Tonsil/Adenoidectomy - Family & Social History Family History: Mother: , Father: , Sister: Alive and Well, Brother: Alive and Well Family History Comment/Other: Patient denies any family history of diabetes, cancer, coronary artery disease or other inherited diseases. Living arrangement: At home Living Situation: Alone Social History Notes: The patient lives in [place], [place]. She has been living here for about the last 10 years. Prior to that she [place]. 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 She is single does not have any children. She states that she grew up on [facility] and has a lot of family here in a good social network. She states that her brother and sister both live on [facility] and she also has many cousins here. She states that she does not smoke cigarettes, she rarely drinks alcohol and she denies any illicit drug use. - POLST Patient has POLST: No POLST Status: Full Code Meds/Allgy - Home Medications Home Medications: Ambulatory Orders Medication Instructions Recorded Confirmed Cholecalciferol (Vitamin D3) 2,000 unit PO DAILY 07/17/17 12/05/17 [Vitamin D3] Acyclovir 400 mg PO DAILY 10/10/17 12/05/17 Midostaurin [Rydapt] 50 mg PO BID MDD Days 8-21 (14 10/25/17 12/05/17 days) oxyCODONE [Roxicodone] 5 mg PO Q4HR PRN #20 tablet 11/08/17 12/05/17 Fluconazole 400 mg PO DAILY #60 tablet 12/10/17 Lidocaine Viscous 2% [Xylocaine 15 ml MM AC PRN #1 bottle 12/10/17 Viscous 2%] - Allergies Allergies/Adverse Reactions: Allergies Allergy/AdvReac Type Severity Reaction Status Date / Time amoxicillin Allergy Unknown Verified 12/10/17 21:30 latex Allergy Unknown Verified 12/10/17 21:30 levofloxacin Allergy Unknown Verified 12/10/17 21:30 Penicillins Allergy Unknown Verified 12/10/17 21:30 paradex Allergy Unknown Uncoded 12/10/17 21:30 Review of Systems - Other Findings Other Findings: A comprehensive review of systems was performed the pertinent positives and negatives are stated above in the HPI and the remainder of the review of systems is negative. Exam - Vital Signs Reviewed Vital Signs: Yes Vital Signs: Vital Signs x48h Temp Pulse Resp BP Pulse Ox 12/10/17 23:36 37.9 C H 12/10/17 23:20 67 16 123/54 L 94 12/10/17 23:05 85 16 122/51 L 95 12/10/17 21:21 38.2 C H 83 16 148/66 H 97 - Physical Exam General Appearance: positive: No acute distress, Alert, Other (Patient has alopecia otherwise looks quite healthy) Eyes Bilateral: positive: Normal inspection, PERRL, EOMI, No lid inflammation, Conjunctivae nml, No scleral icterus ENT: positive: ENT inspection nml, Pharynx nml, No signs of dehydration, Oral lesions (Patient has 2 sores on the bugle mucosa 1 on the right and one on the left these do not appear erythematous nor do they have any drainage or appear infected at this time.). negative: Purulent nasal drainage, Pharyngeal erythema Neck: positive: Nml inspection, Thyroid nml, No JVD, Trachea midline, Thyromegaly. negative: Lymphadenopathy (R), Lymphadenopathy (L), Stiff neck, Carotid bruit, Swelling/bruising, Tracheal deviation Respiratory: positive: Chest non-tender, No respiratory distress, Breath sounds nml. negative: Wheezes, Rales, Rhonchi Cardiovascular: positive: Regular rate & rhythm, No murmur, No gallop Peripheral Pulses: positive: 2+ Abdomen: positive: Non-tender, No organomegaly, Nml bowel sounds, No distention. negative: Guarding, Rebound, Hepatomegaly Back: positive: Nml inspection. negative: CVA tenderness (R), CVA tenderness (L ) Skin: positive: Color nml, No rash, Warm, Other (Patient has a PICC in her right arm which does not have any surrounding erythema or drainage it appears uninfected.). negative: Cyanosis, Diaphoresis, Pallor, Skin rash Extremities: positive: Non-tender, Full ROM, Nml appearance, No pedal edema Neurologic/Psychiatric: positive: Oriented x3, CN's nml (2-12), Motor nml, Sensation nml, Mood/affect nml Conclusion/Plan - Problem List (1) Febrile neutropenia Conclusion/Plan: Patient presents with neutropenic fever for the second time in the last 2 months. Initially patient was hospitalized with neutropenic fever and found to have Pseudomonas bacteremia thought to be secondary to her IV line. The patient 's IV line was discontinued and she had a PICC placed. The patient was treated with 4 weeks of IV cefepime and appeared to be doing much better and had undergone her second cycle of consolidation therapy. Patient presents again today with neutropenic fever with the ANC of 0 and fever in the ER of 38.2. We do not have a source for the patient's fever as her chest x-ray was negative, her UA was negative and she has no other signs or symptoms to point us towards a source of infection. The patient's PICC line looks to be intact and does not appear infected. Plan: Patient will be placed on broad-spectrum IV antibiotics with vancomycin and cefepime Blood cultures 2 we will continue to monitor blood cultures We will talk to the patient's oncologist about possibly getting a Neupogen injection Once patient is afebrile for greater than 24 hours and if her blood cultures are negative she will be able to be de-escalated to oral antibiotics. (2) Acute myelogenous leukemia Conclusion/Plan: The patient is status post induction and 2 cycles of consolidation last being completed on 11/29/2017 and is currently receiving oral chemotherapy. The patient is currently on prophylactic treatment with acyclovir and fluconazole. She has severe neutropenia, anemia and thrombocytopenia secondary to the AML. Plan: Patient will be continued on prophylactic treatment Patient will be continued on her oral chemotherapy We will continue to monitor her hemoglobin, platelets and neutrophils daily We will transfuse packed RBCs if hemoglobin falls below 7 and platelets if platelet count falls below 10 or if patient starts to bleed. We will talk to Dr. Whittaker her oncologist about whether to give any Neupogen. Qualifiers: Leukemia Active/Remission status: without remission Qualified Code(s): C92.00 - Acute myeloblastic leukemia, not having achieved remission (3) Hyponatremia Conclusion/Plan: Patient's sodium is mildly low at 134. She does appear to be very slightly dehydrated. The patient will be encouraged to drink plenty of fluid and we will monitor her sodium. - Lab Results Lab results reviewed: Yes Fish Bones: 12/10/17 21:45 12/10/17 21:45 Other Lab Results: Laboratory Results WBC 0.1 x10^3/uL (4.8-10.8) L* 12/10/17 21:45 RBC 2.28 10^6/uL (4.20-5.40) L 12/10/17 21:45 Hgb 7.2 g/dL (12.0-16.0) L 12/10/17 21:45 Hct 21.4 % (37.0-47.0) L 12/10/17 21:45 MCV 94.2 fL (81.0-99.0) 12/10/17 21:45 MCH 31.6 pg (27.0-31.0) H 12/10/17 21:45 MCHC 33.5 g/dL (32.0-36.0) 12/10/17 21:45 RDW 18.5 % (12.0-15.0) H 12/10/17 21:45 Plt Count 15 10^3/uL (130-450) L* 12/10/17 21:45 MPV 8.7 fL (7.9-10.8) 12/10/17 21:45 Neut # 0.0 10^3/uL (1.5-6.6) L* 12/10/17 21:45 Lymph # 0.1 10^3/uL (1.5-3.5) L 12/10/17 21:45 Miller # 0.0 10^3/uL (0.0-1.0) 12/10/17 21:45 Eos # 0.0 10^3/uL (0.0-0.7) 12/10/17 21:45 Baso # 0.0 10^3/uL (0.0-0.1) 12/10/17 21:45 Absolute Nucleated RBC 0.00 x10^3/uL 12/10/17 21:45 Band Neuts % (Manual) Not Reportable 12/10/17 21:45 Abnorm Lymph % (Manual) Not Reportable 12/10/17 21:45 Nucleated RBC % 2.0 /100WBC 12/10/17 21:45 Neutrophils # (Manual) Not Reportable 12/10/17 21:45 Lymphocytes # (Manual) Not Reportable 12/10/17 21:45 Monocytes # (Manual) Not Reportable 12/10/17 21:45 Eosinophils # (Manual) Not Reportable 12/10/17 21:45 Basophils # (Manual) Not Reportable 12/10/17 21:45 Differential Comment MANUAL=AUTO DIFF 12/10/17 21:45 Sodium 134 mmol/L (135-145) L 12/10/17 21:45 Potassium 3.8 mmol/L (3.5-5.0) 12/10/17 21:45 Chloride 100 mmol/L (101-111) L 12/10/17 21:45 Carbon Dioxide 24 mmol/L (21-32) 12/10/17 21:45 Anion Gap 10.0 (6-13) 12/10/17 21:45 BUN 19 mg/dL (6-20) 12/10/17 21:45 Creatinine 0.7 mg/dL (0.4-1.0) 12/10/17 21:45 Estimated GFR (MDRD) 82 (>89) L 12/10/17 21:45 Glucose 187 mg/dL (70-100) H 12/10/17 21:45 Lactic Acid 1.7 mmol/L (0.5-2.2) 12/10/17 22:00 Calcium 8.9 mg/dL (8.5-10.3) 12/10/17 21:45 Total Bilirubin 1.0 mg/dL (0.2-1.0) 12/10/17 21:45 AST 34 IU/L (10-42) 12/10/17 21:45 ALT 38 IU/L (10-60) 12/10/17 21:45 Alkaline Phosphatase 89 IU/L (42-121) 12/10/17 21:45 B-Natriuretic Peptide 56 pg/mL (5-100) 12/10/17 21:45 Total Protein 6.3 g/dL (6.7-8.2) L 12/10/17 21:45 Albumin 3.4 g/dL (3.2-5.5) 12/10/17 21:45 Globulin 2.9 g/dL (2.1-4.2) 12/10/17 21:45 Albumin/Globulin Ratio 1.2 (1.0-2.2) 12/10/17 21:45 Lipase 23 U/L (22-51) 12/10/17 21:45 Urine Color YELLOW 12/10/17 21:53 Urine Clarity CLEAR (CLEAR) 12/10/17 21:53 Urine pH 5.0 PH (5.0-7.5) 12/10/17 21:53 Ur Specific [place] >=1.030 (1.002-1.030) H 12/10/17 21:53 Urine Protein TRACE mg/dL (NEGATIVE) 12/10/17 21:53 Urine Glucose (UA) NEGATIVE mg/dL (NEGATIVE) 12/10/17 21:53 Urine Ketones NEGATIVE mg/dL (NEGATIVE) 12/10/17 21:53 Urine Occult Blood SMALL (NEGATIVE) H 12/10/17 21:53 Urine Nitrite NEGATIVE (NEGATIVE) 12/10/17 21:53 Urine Bilirubin NEGATIVE (NEGATIVE) 12/10/17 21:53 Urine Urobilinogen 0.2 (NORMAL) E.U./dL (NORMAL) 12/10/17 21:53 Ur Leukocyte Esterase NEGATIVE (NEGATIVE) 12/10/17 21:53 Urine RBC 0-5 /HPF (0-5) 12/10/17 21:53 Urine WBC 0-3 /HPF (0-5) 12/10/17 21:53 Ur Squamous Epith Cells RARE Squamous (<= Few) 12/10/17 21:53 Urine Bacteria None Seen /HPF (None Seen) 12/10/17 21:53 Urine Mucus Few Strands 12/10/17 21:53 Ur Microscopic Review INDICATED 12/10/17 21:53 Urine Culture Comments NOT INDICATED 12/10/17 21:53 Influenza A (Rapid) Negative (Negative) 12/10/17 21:53 Influenza B (Rapid) Negative (Negative) 12/10/17 21:53 - Diagnostic Imaging Results Diagnostic Imaging Results: positive: Final report reviewed Diagnostic Imaging Results Comments: Chest x-ray Impression: 1. No focal pneumonia seen 2. Right PICC line tip in the middle third SVC. Core Measures - Anticipated LOS I expect patient to be DC'd or transferred within 96 hours.: Yes - DVT/VTE - Prophylaxis VTE/DVT Prophylaxis med ordered at admit?: Yes
[2017-12-11] MEDS: SODIUM CHLORIDE 0.9% 1,000 ML IV SCH ×3 (00:51→12:26)
[2017-12-11] MEDS: ACETAMINOPHEN 325 MG TABLET PO PRN ×4 (02:41→20:33)
[2017-12-11] MEDS ORDERED: LIDOCAINE VISCOUS 2% 100 ML BOTTLE MM PRN (02:54)
[2017-12-11 04:56] LABS: EOSINOPHILS % (AUTO) 2.2 %; LYMPHOCYTES # (AUTO) 0.1 10^3/uL (1.5-3.5); LYMPHOCYTES % (AUTO) 96.4 %; MEAN CORPUSCULAR HEMOGLOBIN 31.9 pg (27.0-31.0); MEAN CORPUSCULAR HGB CONC 34.1 g/dL (32.0-36.0); MEAN CORPUSCULAR VOLUME 93.6 fL (81.0-99.0); MEAN PLATELET VOLUME 8.7 fL (7.9-10.8); MONOCYTES % (AUTO) 0.7 %; NEUTROPHILS % (AUTO) 0.7 %; RED BLOOD COUNT 1.84 10^6/uL (4.20-5.40); RED CELL DISTRIBUTION WIDTH 18.6 % (12.0-15.0)
[2017-12-11 04:58] LABS: HGB - HEMOGLOBIN 5.9 g/dL (12.0-16.0); PLT - PLATELET COUNT 11 10^3/uL (130-450); WHITE BLOOD COUNT 0.1 x10^3/uL (4.8-10.8)
[2017-12-11 05:05] LABS: CALCIUM 8.3 mg/dL (8.5-10.3); CREATININE 0.4 mg/dL (0.4-1.0)
[2017-12-11 05:33] LABS: PLATELET ESTIMATE, MANUAL DECREASED (<130,000) (NORMAL); PLATELET MORPHOLOGY NORMAL APPEARANCE (NORMAL)
[2017-12-11] MEDS: SODIUM CHLORIDE FLUSH 0.9% 10 ML SYRINGE IVP SCH ×3 (06:00→16:13)
[2017-12-11] MEDS: SODIUM CHLORIDE FLUSH 0.9% 10 ML SYRINGE IVP PRN ×2 (06:00)
[2017-12-11] MEDS: LIDOCAINE VISCOUS 2% 15 ML UDC MM PRN ×5 (07:38→23:56)
[2017-12-11] MEDS: FAMOTIDINE 20 MG TABLET PO SCH (08:33)
[2017-12-11] MEDS: CHOLECALCIFEROL 1,000 UNIT TABLET PO SCH (08:33)
[2017-12-11] MEDS: POLYETHYLENE GLYCOL 3350 17 GM PACKET PO SCH (08:34)
[2017-12-11] MEDS: ACYCLOVIR 200 MG CAPSULE PO SCH (08:34)
[2017-12-11] MEDS: FLUCONAZOLE 100 MG TABLET PO SCH (08:34)
[2017-12-11] MEDS: oxyCODONE 5 MG TABLET PO PRN (08:54)
[2017-12-11] MEDS ORDERED: CEFEPIME 2 GM in SODIUM CHLORIDE 0.9% MINIBAG 100 ML IV SCH (09:00)
[2017-12-11] MEDS: MIDOSTAURIN 50 MG PO SCH ×3 (09:36→22:24)
[2017-12-11] MEDS: CEFEPIME 2 GM in SODIUM CHLORIDE 0.9% MINIBAG 100 ML IV SCH ×2 (11:43→20:23)
[2017-12-11] MEDS: DEXTROSE 5% IV SCH (13:39)
[2017-12-11] MEDS: VANCOMYCIN IV SCH (13:39)
--- NOTE | 2017-12-11 16:28 | PROVIDER PROGRESS NOTE ---
Assessment/Plan - Problem List (1) Febrile neutropenia Assessment/Plan: Continue empiric antibiotics. Follow CBC daily. Pt to get irradiated PRBCs today. (2) Pancytopenia Assessment/Plan: Monitor cbc daily. 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 (4) Thrush, oral Assessment/Plan: On saline rinses, Clotrimazole troches and pain meds prn. - Current Meds Current Meds: Current Medications Generic Name Dose Route Start Last Admin Trade Name Freq PRN Reason Stop Dose Admin Acetaminophen 650 mg 12/10/17 23:38 12/11/17 13:54 Tylenol PO 650 mg Q4HR PRN Administration Pain 1 to 4 Acyclovir 400 mg 12/11/17 09:00 12/11/17 08:34 Zovirax PO 400 mg DAILY ESTELITA Administration Cholecalciferol 2,000 unit 12/11/17 09:00 12/11/17 08:33 Vitamin D3 PO 2,000 unit DAILY ESTELITA Administration Famotidine 20 mg 12/11/17 09:00 12/11/17 08:33 Pepcid PO 20 mg DAILY ESTELITA Administration Fluconazole 400 mg 12/11/17 09:00 12/11/17 08:34 Diflucan PO 400 mg DAILY ESTELITA Administration Sodium Chloride 1,000 mls @ 100 mls/hr 12/10/17 23:45 12/11/17 12:26 Normal Saline 0.9% IV 100 mls/hr .Q10H ESTELITA Administration Vancomycin HCl 1.25 gm/ 250 mls @ 167 mls/hr 12/11/17 12:00 12/11/17 13:39 Dextrose IV 167 mls/hr Q12H ESTELITA Administration Cefepime HCl 2 gm/ Sodium 100 mls @ 200 mls/hr 12/11/17 12:00 12/11/17 12:33 Chloride IV Infused Q8H ESTELITA Infusion Lidocaine HCl 15 ml 12/11/17 07:21 12/11/17 16:13 Xylocaine Viscous 2% MM 15 ml AC PRN Administration PAIN Oxycodone HCl 5 mg 12/10/17 23:38 12/11/17 08:54 Roxicodone PO 5 mg Q4HR PRN Administration Pain 5 to 7 (Midostaurin [Rydapt 1 each 12/11/17 09:00 12/11/17 09:36 ] 50 Mg) PO 1 each BID ESTELITA Administration Polyethylene Glycol 17 gm 12/11/17 09:00 12/11/17 08:34 Miralax PO Not Given DAILY ESTELITA Sodium Chloride 10 ml 12/10/17 23:38 12/11/17 06:00 Normal Saline Flush 0.9% IVP 10 ml PRN PRN Administration NEEDED PER PROVIDER ORDERS Sodium Chloride 10 ml 12/11/17 01:00 12/11/17 16:13 Normal Saline Flush 0.9% IVP 10 ml [id number] ESTELITA Administration Sodium Chloride 20 ml 12/11/17 03:56 12/11/17 06:00 Normal Saline Flush 0.9% IVP 20 ml PRN PRN Administration After Blood Draw - Lab Result Fish Bone Diagrams: 12/12/17 07:00 12/12/17 07:00 - Additional Planning My Orders: My Active Orders 12/11/17 Lunch DIET [Neutropenic (Low Microbial) Diet] [DIET] 12/12/17 11:30 VANCOMYCIN TROUGH [CHEM] Timed Subjective - Subjective Patient Reports: Other (Oral pain, especially with swallowing) Objective Vital Signs: Vital Signs - 24 hr 12/11/17 12/11/17 12/11/17 00:15 06:51 08:00 Temperature 37.1 C 37.4 C 37.4 C Heart Rate [ 66 70 70 Radial] Respiratory 16 16 16 Rate Blood Pressure 100/46 L 126/53 L 126/53 L [Left Brachial artery] O2 Saturation 95 98 98 12/11/17 16:00 Temperature 37.1 C Heart Rate [ 64 Radial] Respiratory 16 Rate Blood Pressure 111/58 L [Left Brachial artery] O2 Saturation 96 Oxygen O2 Source Room air I&O (Last 24 Hrs): Intake and Output Totals x24h 12/09/17 12/10/17 12/11/17 23:59 23:59 23:59 Intake Total 2700.000 Balance 2700.000 General: Alert, Mild distress HEENT: Other (Tongue is black and tender, posterior pharynx appears normal.) Neck: Supple, No JVD Neuro: Non Focal Cardiovascular: Regular rate, No murmurs Respiratory: No respiratory distress, Breath sounds nml Abdomen: Normal bowel sounds, Soft Extremities: No edema - Results Results: Laboratory Results WBC 0.1 x10^3/uL (4.8-10.8) L* 12/11/17 04:35 RBC 1.84 10^6/uL (4.20-5.40) L 12/11/17 04:35 Hgb 5.9 g/dL (12.0-16.0) L* 12/11/17 04:35 Hct 17.2 % (37.0-47.0) L* 12/11/17 04:35 MCV 93.6 fL (81.0-99.0) 12/11/17 04:35 MCH 31.9 pg (27.0-31.0) H 12/11/17 04:35 MCHC 34.1 g/dL (32.0-36.0) 12/11/17 04:35 RDW 18.6 % (12.0-15.0) H 12/11/17 04:35 Plt Count 11 10^3/uL (130-450) L* 12/11/17 04:35 MPV 8.7 fL (7.9-10.8) 12/11/17 04:35 Neut # 0.0 10^3/uL (1.5-6.6) L* 12/11/17 04:35 Lymph # 0.1 10^3/uL (1.5-3.5) L 12/11/17 04:35 [place] # 0.0 10^3/uL (0.0-1.0) 12/11/17 04:35 Eos # 0.0 10^3/uL (0.0-0.7) 12/11/17 04:35 Baso # 0.0 10^3/uL (0.0-0.1) 12/11/17 04:35 Absolute Nucleated RBC 0.00 x10^3/uL 12/11/17 04:35 Band Neuts % (Manual) Not Reportable 12/10/17 21:45 Abnorm Lymph % (Manual) Not Reportable 12/10/17 21:45 Nucleated RBC % 0.0 /100WBC 12/11/17 04:35 Neutrophils # (Manual) Not Reportable 12/10/17 21:45 Lymphocytes # (Manual) Not Reportable 12/10/17 21:45 Monocytes # (Manual) Not Reportable 12/10/17 21:45 Eosinophils # (Manual) Not Reportable 12/10/17 21:45 Basophils # (Manual) Not Reportable 12/10/17 21:45 Differential Comment MANUAL=AUTO DIFF 12/10/17 21:45 Manual Slide Review Indicated 12/11/17 04:35 Platelet Estimate DECREASED (<130,000) (NORMAL) 12/11/17 04:35 Platelet Morphology NORMAL APPEARANCE (NORMAL) 12/11/17 04:35 RBC Morph Micro Appear 1+ ANISOCYTOSIS (NORMAL) 1+ POIKILOCYTOSIS (NORMAL) 2 + HYPOCHROMASIA (NORMAL) 1+ MICROCYTOSIS (NORMAL) 12/11/17 04:35 RBC Morph Micro Appear 1+ ANISOCYTOSIS (NORMAL) 1+ POIKILOCYTOSIS (NORMAL) 2 + HYPOCHROMASIA (NORMAL) 1+ MICROCYTOSIS (NORMAL) 12/11/17 04:35 RBC Morph Micro Appear 1+ ANISOCYTOSIS (NORMAL) 1+ POIKILOCYTOSIS (NORMAL) 2 + HYPOCHROMASIA (NORMAL) 1+ MICROCYTOSIS (NORMAL) 12/11/17 04:35 RBC Morph Micro Appear 1+ ANISOCYTOSIS (NORMAL) 1+ POIKILOCYTOSIS (NORMAL) 2 + HYPOCHROMASIA (NORMAL) 1+ MICROCYTOSIS (NORMAL) 12/11/17 04:35 Sodium 139 mmol/L (135-145) 12/11/17 04:35 Potassium 3.5 mmol/L (3.5-5.0) 12/11/17 04:35 Chloride 106 mmol/L (101-111) 12/11/17 04:35 Carbon Dioxide 25 mmol/L (21-32) 12/11/17 04:35 Anion Gap 8.0 (6-13) 12/11/17 04:35 BUN 15 mg/dL (6-20) 12/11/17 04:35 Creatinine 0.4 mg/dL (0.4-1.0) 12/11/17 04:35 Estimated GFR (MDRD) 156 (>89) 12/11/17 04:35 Glucose 110 mg/dL (70-100) H 12/11/17 04:35 Lactic Acid 0.6 mmol/L (0.5-2.2) 12/11/17 04:35 Calcium 8.3 mg/dL (8.5-10.3) L 12/11/17 04:35 Total Bilirubin 1.0 mg/dL (0.2-1.0) 12/10/17 21:45 AST 34 IU/L (10-42) 12/10/17 21:45 ALT 38 IU/L (10-60) 12/10/17 21:45 Alkaline Phosphatase 89 IU/L (42-121) 12/10/17 21:45 B-Natriuretic Peptide 56 pg/mL (5-100) 12/10/17 21:45 Total Protein 6.3 g/dL (6.7-8.2) L 12/10/17 21:45 Albumin 3.4 g/dL (3.2-5.5) 12/10/17 21:45 Globulin 2.9 g/dL (2.1-4.2) 12/10/17 21:45 Albumin/Globulin Ratio 1.2 (1.0-2.2) 12/10/17 21:45 Lipase 23 U/L (22-51) 12/10/17 21:45 Urine Color YELLOW 12/10/17 21:53 Urine Clarity CLEAR (CLEAR) 12/10/17 21:53 Urine pH 5.0 PH (5.0-7.5) 12/10/17 21:53 Ur Specific [place] >=1.030 (1.002-1.030) H 12/10/17 21:53 Urine Protein TRACE mg/dL (NEGATIVE) 12/10/17 21:53 Urine Glucose (UA) NEGATIVE mg/dL (NEGATIVE) 12/10/17 21:53 Urine Ketones NEGATIVE mg/dL (NEGATIVE) 12/10/17 21:53 Urine Occult Blood SMALL (NEGATIVE) H 12/10/17 21:53 Urine Nitrite NEGATIVE (NEGATIVE) 12/10/17 21:53 Urine Bilirubin NEGATIVE (NEGATIVE) 12/10/17 21:53 Urine Urobilinogen 0.2 (NORMAL) E.U./dL (NORMAL) 12/10/17 21:53 Ur Leukocyte Esterase NEGATIVE (NEGATIVE) 12/10/17 21:53 Urine RBC 0-5 /HPF (0-5) 12/10/17 21:53 Urine WBC 0-3 /HPF (0-5) 12/10/17 21:53 Ur Squamous Epith Cells RARE Squamous (<= Few) 12/10/17 21:53 Urine Bacteria None Seen /HPF (None Seen) 12/10/17 21:53 Urine Mucus Few Strands 12/10/17 21:53 Ur Microscopic Review INDICATED 12/10/17 21:53 Urine Culture Comments NOT INDICATED 12/10/17 21:53 Influenza A (Rapid) Negative (Negative) 12/10/17 21:53 Influenza B (Rapid) Negative (Negative) 12/10/17 21:53 Blood Type O POSITIVE 12/11/17 05:20 Antibody Screen NEGATIVE 12/11/17 05:20 Crossmatch IS Only See Detail 12/11/17 05:20 - Procedures Procedures: Procedures INSERTION OF INFUSION DEV INTO SUP VENA CAVA, PERC APPROACH (11/03/17) REMOVAL OF INFUSION DEV FROM GREAT VESSEL, GREENSKEEPER APPROACH (11/03/17) TRANSFUSE NONAUT FROZEN PLASMA IN PERIPH VEIN, PERC (11/03/17) TRANSFUSE NONAUT RED BLOOD CELLS IN CENTRAL VEIN, PERC (11/03/17) ABX Reporting Has patient been on IV antibiotics over the past 48 hours?: Yes
[2017-12-12] MEDS: DEXTROSE 5% IV SCH (00:02)
[2017-12-12] MEDS: VANCOMYCIN IV SCH (00:02)
[2017-12-12] MEDS: ACETAMINOPHEN 325 MG TABLET PO PRN ×2 (01:42→11:12)
[2017-12-12] MEDS: SODIUM CHLORIDE FLUSH 0.9% 10 ML SYRINGE IVP SCH ×3 (02:19→16:19)
[2017-12-12] MEDS: CEFEPIME 2 GM in SODIUM CHLORIDE 0.9% MINIBAG 100 ML IV SCH ×3 (06:46→22:21)
[2017-12-12] MEDS: SODIUM CHLORIDE FLUSH 0.9% 10 ML SYRINGE IVP PRN (06:49)
[2017-12-12 07:58] LABS: EOSINOPHILS % (AUTO) 0.6 %; HGB - HEMOGLOBIN 7.8 g/dL (12.0-16.0); LYMPHOCYTES # (AUTO) 0.3 10^3/uL (1.5-3.5); LYMPHOCYTES % (AUTO) 98.4 %; MEAN CORPUSCULAR HEMOGLOBIN 31.2 pg (27.0-31.0); MEAN CORPUSCULAR HGB CONC 35.1 g/dL (32.0-36.0); MEAN PLATELET VOLUME 9.5 fL (7.9-10.8); MONOCYTES % (AUTO) 0.6 %; NEUTROPHILS % (AUTO) 0.4 %; RED CELL DISTRIBUTION WIDTH 18.5 % (12.0-15.0)
[2017-12-12 08:05] LABS: PLT - PLATELET COUNT 9 10^3/uL (130-450); WHITE BLOOD COUNT 0.3 x10^3/uL (4.8-10.8)
[2017-12-12 08:07] LABS: CALCIUM 8.5 mg/dL (8.5-10.3); CREATININE 0.5 mg/dL (0.4-1.0)
[2017-12-12] MEDS: FLUCONAZOLE 100 MG TABLET PO SCH (08:28)
[2017-12-12] MEDS: CHOLECALCIFEROL 1,000 UNIT TABLET PO SCH (08:28)
[2017-12-12] MEDS: FAMOTIDINE 20 MG TABLET PO SCH (08:28)
[2017-12-12] MEDS: ACYCLOVIR 200 MG CAPSULE PO SCH (08:28)
[2017-12-12] MEDS: SODIUM CHLORIDE 0.9% 1,000 ML IV SCH ×2 (08:29→22:12)
[2017-12-12] MEDS: POLYETHYLENE GLYCOL 3350 17 GM PACKET PO SCH (08:32)
[2017-12-12] MEDS: MIDOSTAURIN 50 MG PO SCH ×2 (08:36→20:52)
[2017-12-12] MEDS: oxyCODONE 5 MG TABLET PO PRN ×2 (11:12→16:18)
[2017-12-12] MEDS: LIDOCAINE VISCOUS 2% 15 ML UDC MM PRN ×3 (11:13→20:51)
[2017-12-12] MEDS: CLOTRIMAZOLE 10 MG LOZENGE MM SCH ×5 (11:18→22:14)
[2017-12-12 12:49] LABS: VANCOMYCIN,TROUGH 8.9 ug/mL (5.0-15.0)
[2017-12-12] MEDS: ALTEPLASE 2 MG VIAL IC PRN ×2 (13:06→17:17)
[2017-12-12] MEDS ORDERED: WATER FOR INJECTION,STERILE 10 ML ONE (13:09)
[2017-12-12] MEDS ORDERED: DEXTROSE 5% IV SCH (15:00)
[2017-12-12] MEDS ORDERED: VANCOMYCIN IV SCH (15:00)
[2017-12-12] MEDS: VANCOMYCIN INJ 1.75 GM in SODIUM CHLORIDE 0.9% 500 ML IV SCH (16:32)
--- NOTE | 2017-12-12 17:01 | PROVIDER PROGRESS NOTE ---
Assessment/Plan - Problem List (1) Febrile neutropenia Assessment/Plan: Continue empiric antibitics til afebrile off Tylenol for 24 hours. Awaiting culture results. Monitor CBC daily. (2) Pancytopenia Assessment/Plan: Plt count below 10. Will trasfuse a superpak of plts, irradiated. Message left for [employer], Miguel Orozco. 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 (4) Thrush, oral Assessment/Plan: On oral clotrimazole lozenges and symptomatic treatment. Her Oncologist advised to stop Tylenol, so as not to mask a fever and to use scheduled oxycodone for pain control of the thrush, so as to allow oral nutrition. Will advance diet as mouth pain will allow. Will stop iv fluids as po intake improves. - Current Meds Current Meds: Current Medications Generic Name Dose Route Start Last Admin Trade Name Freq PRN Reason Stop Dose Admin Acetaminophen 650 mg 12/10/17 23:38 12/12/17 11:12 Tylenol PO 650 mg Q4HR PRN Administration Pain 1 to 4 Acyclovir 400 mg 12/11/17 09:00 12/12/17 08:28 Zovirax PO 400 mg DAILY ESTELITA Administration Alteplase, Recombinant 2 mg 12/12/17 08:04 12/12/17 13:06 Cathflo IC 2 mg Q2H PRN Administration PER PHYSICIAN ORDER Cholecalciferol 2,000 unit 12/11/17 09:00 12/12/17 08:28 Vitamin D3 PO 2,000 unit DAILY ESTELITA Administration Clotrimazole 10 mg 12/12/17 10:00 12/12/17 16:18 MM 10 mg 5XD ESTELITA Administration Famotidine 20 mg 12/11/17 09:00 12/12/17 08:28 Pepcid PO 20 mg DAILY ESTELITA Administration Fluconazole 400 mg 12/11/17 09:00 12/12/17 08:28 Diflucan PO 400 mg DAILY ESTELITA Administration Sodium Chloride 1,000 mls @ 100 mls/hr 12/10/17 23:45 12/12/17 16:06 Normal Saline 0.9% IV 0 mls/hr .Q10H ESTELITA Infusion Cefepime HCl 2 gm/ Sodium 100 mls @ 200 mls/hr 12/11/17 12:00 12/12/17 15:33 Chloride IV Infused Q8H ESTELITA Infusion Vancomycin HCl 1.75 gm/ Sodium 500 mls @ 250 mls/hr 12/12/17 15:00 12/12/17 16:32 Chloride IV 250 mls/hr Q12H ESTELITA Administration Lidocaine HCl 15 ml 12/11/17 07:21 12/12/17 16:18 Xylocaine Viscous 2% MM 15 ml AC PRN Administration PAIN Lidocaine HCl 15 ml 12/11/17 07:22 12/11/17 23:56 Xylocaine Viscous 2% MM 15 ml Q4H PRN Administration Mouth Sore Pain Oxycodone HCl 5 mg 12/10/17 23:38 12/12/17 11:12 Roxicodone PO 5 mg Q4HR PRN Administration Pain 5 to 7 Oxycodone HCl 10 mg 12/10/17 23:38 12/12/17 16:18 Roxicodone PO 10 mg Q4HR PRN Administration Pain 8 to 10 (Midostaurin [Rydapt 2 each 12/11/17 21:12 12/12/17 08:36 ] 50 Mg) PO 2 each BID ESTELITA Administration Polyethylene Glycol 17 gm 12/11/17 09:00 12/12/17 08:32 Miralax PO Not Given DAILY ESTELITA Sodium Chloride 10 ml 12/10/17 23:38 12/12/17 06:49 Normal Saline Flush 0.9% IVP 10 ml PRN PRN Administration NEEDED PER PROVIDER ORDERS Sodium Chloride 10 ml 12/11/17 01:00 12/12/17 16:19 Normal Saline Flush 0.9% IVP 10 ml 0100,[id number],1700 ESTELITA Administration Sodium Chloride 20 ml 12/11/17 03:56 12/11/17 06:00 Normal Saline Flush 0.9% IVP 20 ml PRN PRN Administration After Blood Draw - Lab Result Fish Bone Diagrams: 12/12/17 07:00 12/12/17 07:00 - Additional Planning My Orders: My Active Orders 12/12/17 PLATELETPHERESIS LEUKO REDUCED Routine 12/12/17 08:04 Alteplase [Cathflo] 2 mg IC Q2H PRN 12/12/17 10:00 Clotrimazole Evelio 10 mg MM 5XD 12/14/17 02:30 VANCOMYCIN TROUGH [CHEM] Timed Objective Vital Signs: Vital Signs - 24 hr 12/11/17 12/11/17 12/11/17 20:17 20:28 20:40 Temperature 37.1 C 37.0 C 37.2 C Heart Rate 65 65 70 Heart Rate [ Radial] Respiratory 16 16 20 Rate Blood Pressure 134/59 H 125/51 L 95/73 Blood Pressure [Left Brachial artery] O2 Saturation 12/11/17 12/11/17 12/12/17 20:43 23:48 00:12 Temperature 36.4 C L 36.4 C L Heart Rate 67 Heart Rate [ 65 Radial] Respiratory 20 18 Rate Blood Pressure 155/48 H 142/47 H Blood Pressure 142/47 H [Left Brachial artery] O2 Saturation 96 12/12/17 12/12/17 12/12/17 01:44 02:08 02:30 Temperature 37.6 C H 37.3 C 37.3 C Heart Rate 72 64 Heart Rate [ 64 Radial] Respiratory 16 18 18 Rate Blood Pressure 109/51 L 115/43 L Blood Pressure 121/45 L [Left Brachial artery] O2 Saturation 94 12/12/17 12/12/17 12/12/17 02:40 05:53 08:00 Temperature 37.2 C 37.1 C 37.1 C Heart Rate 68 60 Heart Rate [ 64 Radial] Respiratory 18 18 18 Rate Blood Pressure 115/45 L 120/60 Blood Pressure 126/51 L [Left Brachial artery] O2 Saturation 96 12/12/17 16:00 Temperature 37.2 C Heart Rate Heart Rate [ 62 Radial] Respiratory 18 Rate Blood Pressure Blood Pressure 126/56 L [Left Brachial artery] O2 Saturation 96 Oxygen O2 Source Room air I&O (Last 24 Hrs): Intake and Output Totals x24h 12/10/17 12/11/17 12/12/17 23:59 23:59 23:59 Intake Total 3230.000 4547.667 Output Total 500 Balance 3230.000 4047.667 General: Alert HEENT: Other Neck: Supple Neuro: Non Focal Cardiovascular: Regular rate Respiratory: No respiratory distress Abdomen: Soft Extremities: No edema - Results Results: Laboratory Results WBC 0.3 x10^3/uL (4.8-10.8) L* 12/12/17 07:00 RBC 2.50 10^6/uL (4.20-5.40) L 12/12/17 07:00 Hgb 7.8 g/dL (12.0-16.0) L 12/12/17 07:00 Hct 22.3 % (37.0-47.0) L 12/12/17 07:00 MCV 89.0 fL (81.0-99.0) 12/12/17 07:00 MCH 31.2 pg (27.0-31.0) H 12/12/17 07:00 MCHC 35.1 g/dL (32.0-36.0) 12/12/17 07:00 RDW 18.5 % (12.0-15.0) H 12/12/17 07:00 Plt Count 9 10^3/uL (130-450) L* 12/12/17 07:00 MPV 9.5 fL (7.9-10.8) 12/12/17 07:00 Neut # 0.0 10^3/uL (1.5-6.6) L* 12/12/17 07:00 Lymph # 0.3 10^3/uL (1.5-3.5) L 12/12/17 07:00 [place] # 0.0 10^3/uL (0.0-1.0) 12/12/17 07:00 Eos # 0.0 10^3/uL (0.0-0.7) 12/12/17 07:00 Baso # 0.0 10^3/uL (0.0-0.1) 12/12/17 07:00 Absolute Nucleated RBC 0.00 x10^3/uL 12/12/17 07:00 Band Neuts % (Manual) Not Reportable 12/10/17 21:45 Abnorm Lymph % (Manual) Not Reportable 12/10/17 21:45 Nucleated RBC % 0.7 /100WBC 12/12/17 07:00 Neutrophils # (Manual) Not Reportable 12/10/17 21:45 Lymphocytes # (Manual) Not Reportable 12/10/17 21:45 Monocytes # (Manual) Not Reportable 12/10/17 21:45 Eosinophils # (Manual) Not Reportable 12/10/17 21:45 Basophils # (Manual) Not Reportable 12/10/17 21:45 Differential Comment MANUAL=AUTO DIFF 12/10/17 21:45 Manual Slide Review Indicated 12/11/17 04:35 Platelet Estimate DECREASED (<130,000) (NORMAL) 12/11/17 04:35 Platelet Morphology NORMAL APPEARANCE (NORMAL) 12/11/17 04:35 RBC Morph Micro Appear 1+ ANISOCYTOSIS (NORMAL) 1+ POIKILOCYTOSIS (NORMAL) 2 + HYPOCHROMASIA (NORMAL) 1+ MICROCYTOSIS (NORMAL) 12/11/17 04:35 RBC Morph Micro Appear 1+ ANISOCYTOSIS (NORMAL) 1+ POIKILOCYTOSIS (NORMAL) 2 + HYPOCHROMASIA (NORMAL) 1+ MICROCYTOSIS (NORMAL) 12/11/17 04:35 RBC Morph Micro Appear 1+ ANISOCYTOSIS (NORMAL) 1+ POIKILOCYTOSIS (NORMAL) 2 + HYPOCHROMASIA (NORMAL) 1+ MICROCYTOSIS (NORMAL) 12/11/17 04:35 RBC Morph Micro Appear 1+ ANISOCYTOSIS (NORMAL) 1+ POIKILOCYTOSIS (NORMAL) 2 + HYPOCHROMASIA (NORMAL) 1+ MICROCYTOSIS (NORMAL) 12/11/17 04:35 Sodium 139 mmol/L (135-145) 12/12/17 07:00 Potassium 3.8 mmol/L (3.5-5.0) 12/12/17 07:00 Chloride 105 mmol/L (101-111) 12/12/17 07:00 Carbon Dioxide 27 mmol/L (21-32) 12/12/17 07:00 Anion Gap 7.0 (6-13) 12/12/17 07:00 BUN 11 mg/dL (6-20) 12/12/17 07:00 Creatinine 0.5 mg/dL (0.4-1.0) 12/12/17 07:00 Estimated GFR (MDRD) 121 (>89) 12/12/17 07:00 Glucose 97 mg/dL (70-100) 12/12/17 07:00 Lactic Acid 0.6 mmol/L (0.5-2.2) 12/11/17 04:35 Calcium 8.5 mg/dL (8.5-10.3) 12/12/17 07:00 Total Bilirubin 1.0 mg/dL (0.2-1.0) 12/10/17 21:45 AST 34 IU/L (10-42) 12/10/17 21:45 ALT 38 IU/L (10-60) 12/10/17 21:45 Alkaline Phosphatase 89 IU/L (42-121) 12/10/17 21:45 B-Natriuretic Peptide 56 pg/mL (5-100) 12/10/17 21:45 Total Protein 6.3 g/dL (6.7-8.2) L 12/10/17 21:45 Albumin 3.4 g/dL (3.2-5.5) 12/10/17 21:45 Globulin 2.9 g/dL (2.1-4.2) 12/10/17 21:45 Albumin/Globulin Ratio 1.2 (1.0-2.2) 12/10/17 21:45 Lipase 23 U/L (22-51) 12/10/17 21:45 Urine Color YELLOW 12/10/17 21:53 Urine Clarity CLEAR (CLEAR) 12/10/17 21:53 Urine pH 5.0 PH (5.0-7.5) 12/10/17 21:53 Ur Specific [place] >=1.030 (1.002-1.030) H 12/10/17 21:53 Urine Protein TRACE mg/dL (NEGATIVE) 12/10/17 21:53 Urine Glucose (UA) NEGATIVE mg/dL (NEGATIVE) 12/10/17 21:53 Urine Ketones NEGATIVE mg/dL (NEGATIVE) 12/10/17 21:53 Urine Occult Blood SMALL (NEGATIVE) H 12/10/17 21:53 Urine Nitrite NEGATIVE (NEGATIVE) 12/10/17 21:53 Urine Bilirubin NEGATIVE (NEGATIVE) 12/10/17 21:53 Urine Urobilinogen 0.2 (NORMAL) E.U./dL (NORMAL) 12/10/17 21:53 Ur Leukocyte Esterase NEGATIVE (NEGATIVE) 12/10/17 21:53 Urine RBC 0-5 /HPF (0-5) 12/10/17 21:53 Urine WBC 0-3 /HPF (0-5) 12/10/17 21:53 Ur Squamous Epith Cells RARE Squamous (<= Few) 12/10/17 21:53 Urine Bacteria None Seen /HPF (None Seen) 12/10/17 21:53 Urine Mucus Few Strands 12/10/17 21:53 Ur Microscopic Review INDICATED 12/10/17 21:53 Urine Culture Comments NOT INDICATED 12/10/17 21:53 Last Dose Date Not Reportable 12/12/17 12:29 Last Dose Time Not Reportable 12/12/17 12:29 Vancomycin Trough 8.9 ug/mL (5.0-15.0) 12/12/17 12:29 Influenza A (Rapid) Negative (Negative) 12/10/17 21:53 Influenza B (Rapid) Negative (Negative) 12/10/17 21:53 Blood Type O POSITIVE 12/11/17 05:20 Antibody Screen NEGATIVE 12/11/17 05:20 Crossmatch IS Only See Detail 12/11/17 05:20 - Procedures Procedures: Procedures INSERTION OF INFUSION DEV INTO SUP VENA CAVA, PERC APPROACH (11/03/17) REMOVAL OF INFUSION DEV FROM GREAT VESSEL, ROLL FORMER APPROACH (11/03/17) TRANSFUSE NONAUT FROZEN PLASMA IN PERIPH VEIN, PERC (11/03/17) TRANSFUSE NONAUT RED BLOOD CELLS IN CENTRAL VEIN, PERC (11/03/17)
[2017-12-12] MEDS: oxyCODONE ER 10 MG TABLET PO SCH (20:51)
[2017-12-13] MEDS: VANCOMYCIN INJ 1.75 GM in SODIUM CHLORIDE 0.9% 500 ML IV SCH ×2 (02:45→16:41)
[2017-12-13] MEDS: SODIUM CHLORIDE FLUSH 0.9% 10 ML SYRINGE IVP SCH ×3 (02:47→16:41)
[2017-12-13] MEDS: LIDOCAINE VISCOUS 2% 15 ML UDC MM PRN ×5 (04:02→20:08)
[2017-12-13 05:29] LABS: EOSINOPHILS % (AUTO) 0.2 %; LYMPHOCYTES % (AUTO) 97.2 %; MEAN CORPUSCULAR HEMOGLOBIN 30.3 pg (27.0-31.0); MEAN CORPUSCULAR HGB CONC 33.9 g/dL (32.0-36.0); MEAN CORPUSCULAR VOLUME 89.4 fL (81.0-99.0); MEAN PLATELET VOLUME 9.3 fL (7.9-10.8); MONOCYTES % (AUTO) 1.2 %; NEUTROPHILS % (AUTO) 1.4 %; PLT - PLATELET COUNT 47 10^3/uL (130-450); RED BLOOD COUNT 2.29 10^6/uL (4.20-5.40)
[2017-12-13 05:30] LABS: CALCIUM 8.3 mg/dL (8.5-10.3); CREATININE 0.4 mg/dL (0.4-1.0)
[2017-12-13 05:38] LABS: HGB - HEMOGLOBIN 6.9 g/dL (12.0-16.0); WHITE BLOOD COUNT 0.2 x10^3/uL (4.8-10.8)
[2017-12-13 05:40] LABS: ABNORMAL LYMPHS % (MANUAL) 0 %; BAND NEUTROPHILS % (MANUAL) 0 %
[2017-12-13 06:59] LABS: DIFFERENTIAL COMMENT MANUAL DIFFERENTIAL; LYMPHOCYTES # (MANUAL) 0.2 10^3/uL (1.5-3.5); LYMPHOCYTES % (MANUAL) 96 %; NEUTROPHILS % (MANUAL) 4 %; PLATELET ESTIMATE, MANUAL DECREASED (<130,000) (NORMAL); RBC MORPHOLOGY (MULTIPLE) NORMAL APPEARANCE (NORMAL)
[2017-12-13] MEDS: CLOTRIMAZOLE 10 MG LOZENGE MM SCH ×5 (07:06→22:27)
[2017-12-13] MEDS: CEFEPIME 2 GM in SODIUM CHLORIDE 0.9% MINIBAG 100 ML IV SCH ×3 (07:07→22:26)
[2017-12-13] MEDS: ACYCLOVIR 200 MG CAPSULE PO SCH (08:24)
[2017-12-13] MEDS: CHOLECALCIFEROL 1,000 UNIT TABLET PO SCH (08:24)
[2017-12-13] MEDS: oxyCODONE ER 10 MG TABLET PO SCH ×2 (08:24→20:08)
[2017-12-13] MEDS: FAMOTIDINE 20 MG TABLET PO SCH (08:24)
[2017-12-13] MEDS: FLUCONAZOLE 100 MG TABLET PO SCH (08:25)
[2017-12-13] MEDS: MIDOSTAURIN 50 MG PO SCH ×2 (08:28→20:08)
[2017-12-13] MEDS: POLYETHYLENE GLYCOL 3350 17 GM PACKET PO SCH (08:28)
[2017-12-13] MEDS: SODIUM CHLORIDE 0.9% 1,000 ML IV SCH ×2 (10:49→11:30)
--- NOTE | 2017-12-13 15:41 | PROVIDER PROGRESS NOTE ---
Assessment/Plan - Problem List (1) Febrile neutropenia Assessment/Plan: No infectious source found. Pt remains on empiric antibiotics. Poss DCh tomorrow if afebrile for 24 hours off Tylenol, and if CBC is stable or improving. (2) Pancytopenia Assessment/Plan: Plts increased to 47 after super dorcas plts yesterday. Hgb minimally lower, but may be hemodilutional. Will monitor CBC daily, if stable or improved tomorrow, possible DCh tomorrow. 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 (4) Thrush, oral Assessment/Plan: Continue treatment for Thrush. - Current Meds Current Meds: Current Medications Generic Name Dose Route Start Last Admin Trade Name Freq PRN Reason Stop Dose Admin Acyclovir 400 mg 12/11/17 09:00 12/13/17 08:24 Zovirax PO 400 mg DAILY ESTELITA Administration Cholecalciferol 2,000 unit 12/11/17 09:00 12/13/17 08:24 Vitamin D3 PO 2,000 unit DAILY ESTELITA Administration Clotrimazole 10 mg 12/12/17 10:00 12/13/17 14:38 MM 10 mg 5XD ESTELITA Administration Famotidine 20 mg 12/11/17 09:00 12/13/17 08:24 Pepcid PO 20 mg DAILY ESTELITA Administration Fluconazole 400 mg 12/11/17 09:00 12/13/17 08:25 Diflucan PO 400 mg DAILY ESTELITA Administration Sodium Chloride 1,000 mls @ 100 mls/hr 12/10/17 23:45 12/13/17 11:30 Normal Saline 0.9% IV 100 mls/hr .Q10H ESTELITA Administration Cefepime HCl 2 gm/ Sodium 100 mls @ 200 mls/hr 12/11/17 12:00 12/13/17 15:08 Chloride IV Infused Q8H ESTELITA Infusion Vancomycin HCl 1.75 gm/ Sodium 500 mls @ 250 mls/hr 12/12/17 15:00 12/13/17 08:03 Chloride IV Infused Q12H ESTELITA Infusion Lidocaine HCl 15 ml 12/11/17 07:21 12/13/17 11:03 Xylocaine Viscous 2% MM 15 ml AC PRN Administration PAIN Lidocaine HCl 15 ml 12/11/17 07:22 12/13/17 04:02 Xylocaine Viscous 2% MM 15 ml Q4H PRN Administration Mouth Sore Pain Oxycodone HCl 5 mg 12/10/17 23:38 12/12/17 11:12 Roxicodone PO 5 mg Q4HR PRN Administration Pain 5 to 7 Oxycodone HCl 10 mg 12/10/17 23:38 12/12/17 16:18 Roxicodone PO 10 mg Q4HR PRN Administration Pain 8 to 10 Oxycodone HCl 10 mg 12/12/17 21:00 12/13/17 08:24 Oxycontin PO 10 mg BID ESTELITA Administration (Midostaurin [Rydapt 2 each 12/11/17 21:12 12/13/17 08:28 ] 50 Mg) PO 2 each BID ESTELITA Administration Polyethylene Glycol 17 gm 12/11/17 09:00 12/13/17 08:28 Miralax PO Not Given DAILY ESTELITA Sodium Chloride 10 ml 12/10/17 23:38 12/12/17 06:49 Normal Saline Flush 0.9% IVP 10 ml PRN PRN Administration NEEDED PER PROVIDER ORDERS Sodium Chloride 10 ml 12/11/17 01:00 12/13/17 08:28 Normal Saline Flush 0.9% IVP 10 ml 0100,0900,1700 ESTELITA Administration Sodium Chloride 20 ml 12/11/17 03:56 12/11/17 06:00 Normal Saline Flush 0.9% IVP 20 ml PRN PRN Administration After Blood Draw - Lab Result Fish Bone Diagrams: 12/13/17 05:08 12/13/17 05:08 - Additional Planning My Orders: My Active Orders 12/12/17 21:00 oxyCODONE ER [OxyCONTIN] 10 mg PO BID 12/14/17 02:30 VANCOMYCIN TROUGH [CHEM] Timed Subjective - Subjective Patient Reports: Feeling Better, Other (Able to drink milk and Ensure. Mouth pain is not entirely relieved with oxycodone and off Tylenol.) Objective Vital Signs: Vital Signs - 24 hr 12/12/17 12/12/17 12/12/17 16:00 21:56 22:20 Temperature 37.2 C 37.6 C H 37.4 C Heart Rate 66 66 Heart Rate [ 62 Radial] Respiratory 18 16 17 Rate Blood Pressure 136/49 H 132/58 H Blood Pressure 126/56 L [Left Brachial artery] O2 Saturation 96 12/12/17 12/13/17 12/13/17 23:03 00:00 08:07 Temperature 37.4 C 37.6 C H 37.7 C H Heart Rate 74 Heart Rate [ 73 66 Radial] Respiratory 17 18 16 Rate Blood Pressure 145/53 H Blood Pressure 140/45 H 159/58 H [Left Brachial artery] O2 Saturation 95 97 12/13/17 12:31 Temperature 37.1 C Heart Rate Heart Rate [ 64 Radial] Respiratory Rate Blood Pressure Blood Pressure 134/61 H [Left Brachial artery] O2 Saturation 98 Oxygen O2 Source Room air I&O (Last 24 Hrs): Intake and Output Totals x24h 12/11/17 12/12/17 12/13/17 23:59 23:59 23:59 Intake Total 3230.000 5695.000 2805 Output Total 500 Balance 3230.000 5195.000 2805 General: Alert, Oriented x3 HEENT: Other (Tongue is white, less tender) Neck: Supple, No JVD Neuro: Non Focal Cardiovascular: Regular rate, No murmurs Respiratory: No respiratory distress Abdomen: Soft Extremities: No edema - Results Results: Laboratory Results WBC 0.2 x10^3/uL (4.8-10.8) L* 12/13/17 05:08 RBC 2.29 10^6/uL (4.20-5.40) L 12/13/17 05:08 Hgb 6.9 g/dL (12.0-16.0) L* 12/13/17 05:08 Hct 20.5 % (37.0-47.0) L 12/13/17 05:08 MCV 89.4 fL (81.0-99.0) 12/13/17 05:08 MCH 30.3 pg (27.0-31.0) 12/13/17 05:08 MCHC 33.9 g/dL (32.0-36.0) 12/13/17 05:08 RDW 18.0 % (12.0-15.0) H 12/13/17 05:08 Plt Count 47 10^3/uL (130-450) L 12/13/17 05:08 MPV 9.3 fL (7.9-10.8) 12/13/17 05:08 Neut # Not Reportable 12/13/17 05:08 Lymph # Not Reportable 12/13/17 05:08 Brown # Not Reportable 12/13/17 05:08 Eos # Not Reportable 12/13/17 05:08 Baso # Not Reportable 12/13/17 05:08 Absolute Nucleated RBC Not Reportable 12/13/17 05:08 Total Counted 25 12/13/17 05:08 Band Neuts % (Manual) 0 % (0-10) 12/13/17 05:08 Abnorm Lymph % (Manual) 0 % 12/13/17 05:08 Nucleated RBC % Not Reportable 12/13/17 05:08 Neutrophils # (Manual) 0.0 10^3/uL (1.5-6.6) L* 12/13/17 05:08 Lymphocytes # (Manual) 0.2 10^3/uL (1.5-3.5) L 12/13/17 05:08 Monocytes # (Manual) 0.0 10^3/uL (0.0-1.0) 12/13/17 05:08 Eosinophils # (Manual) 0.0 10^3/uL (0-0.7) 12/13/17 05:08 Basophils # (Manual) 0.0 10^3/uL (0-0.1) 12/13/17 05:08 Differential Comment MANUAL DIFFERENTIAL 12/13/17 05:08 Manual Slide Review Indicated 12/11/17 04:35 Platelet Estimate DECREASED (<130,000) (NORMAL) 12/13/17 05:08 Platelet Morphology NORMAL APPEARANCE (NORMAL) 12/11/17 04:35 RBC Morph Micro Appear 1+ ANISOCYTOSIS (NORMAL) 1+ POIKILOCYTOSIS (NORMAL) 2 + HYPOCHROMASIA (NORMAL) 1+ MICROCYTOSIS (NORMAL) 12/11/17 04:35 RBC Morph Micro Appear 1+ ANISOCYTOSIS (NORMAL) 1+ POIKILOCYTOSIS (NORMAL) 2 + HYPOCHROMASIA (NORMAL) 1+ MICROCYTOSIS (NORMAL) 12/11/17 04:35 RBC Morph Micro Appear 1+ ANISOCYTOSIS (NORMAL) 1+ POIKILOCYTOSIS (NORMAL) 2 + HYPOCHROMASIA (NORMAL) 1+ MICROCYTOSIS (NORMAL) 12/11/17 04:35 RBC Morph Micro Appear NORMAL APPEARANCE (NORMAL) 12/13/17 05:08 Sodium 138 mmol/L (135-145) 12/13/17 05:08 Potassium 3.5 mmol/L (3.5-5.0) 12/13/17 05:08 Chloride 105 mmol/L (101-111) 12/13/17 05:08 Carbon Dioxide 28 mmol/L (21-32) 12/13/17 05:08 Anion Gap 5.0 (6-13) L 12/13/17 05:08 BUN 10 mg/dL (6-20) 12/13/17 05:08 Creatinine 0.4 mg/dL (0.4-1.0) 12/13/17 05:08 Estimated GFR (MDRD) 156 (>89) 12/13/17 05:08 Glucose 106 mg/dL (70-100) H 12/13/17 05:08 Lactic Acid 0.6 mmol/L (0.5-2.2) 12/11/17 04:35 Calcium 8.3 mg/dL (8.5-10.3) L 12/13/17 05:08 Total Bilirubin 1.0 mg/dL (0.2-1.0) 12/10/17 21:45 AST 34 IU/L (10-42) 12/10/17 21:45 ALT 38 IU/L (10-60) 12/10/17 21:45 Alkaline Phosphatase 89 IU/L (42-121) 12/10/17 21:45 B-Natriuretic Peptide 56 pg/mL (5-100) 12/10/17 21:45 Total Protein 6.3 g/dL (6.7-8.2) L 12/10/17 21:45 Albumin 3.4 g/dL (3.2-5.5) 12/10/17 21:45 Globulin 2.9 g/dL (2.1-4.2) 12/10/17 21:45 Albumin/Globulin Ratio 1.2 (1.0-2.2) 12/10/17 21:45 Lipase 23 U/L (22-51) 12/10/17 21:45 Urine Color YELLOW 12/10/17 21:53 Urine Clarity CLEAR (CLEAR) 12/10/17 21:53 Urine pH 5.0 PH (5.0-7.5) 12/10/17 21:53 Ur Specific [place] >=1.030 (1.002-1.030) H 12/10/17 21:53 Urine Protein TRACE mg/dL (NEGATIVE) 12/10/17 21:53 Urine Glucose (UA) NEGATIVE mg/dL (NEGATIVE) 12/10/17 21:53 Urine Ketones NEGATIVE mg/dL (NEGATIVE) 12/10/17 21:53 Urine Occult Blood SMALL (NEGATIVE) H 12/10/17 21:53 Urine Nitrite NEGATIVE (NEGATIVE) 12/10/17 21:53 Urine Bilirubin NEGATIVE (NEGATIVE) 12/10/17 21:53 Urine Urobilinogen 0.2 (NORMAL) E.U./dL (NORMAL) 12/10/17 21:53 Ur Leukocyte Esterase NEGATIVE (NEGATIVE) 12/10/17 21:53 Urine RBC 0-5 /HPF (0-5) 12/10/17 21:53 Urine WBC 0-3 /HPF (0-5) 12/10/17 21:53 Ur Squamous Epith Cells RARE Squamous (<= Few) 12/10/17 21:53 Urine Bacteria None Seen /HPF (None Seen) 12/10/17 21:53 Urine Mucus Few Strands 12/10/17 21:53 Ur Microscopic Review INDICATED 12/10/17 21:53 Urine Culture Comments NOT INDICATED 12/10/17 21:53 Last Dose Date Not Reportable 12/12/17 12:29 Last Dose Time Not Reportable 12/12/17 12:29 Vancomycin Trough 8.9 ug/mL (5.0-15.0) 12/12/17 12:29 Influenza A (Rapid) Negative (Negative) 12/10/17 21:53 Influenza B (Rapid) Negative (Negative) 12/10/17 21:53 Blood Type O POSITIVE 12/11/17 05:20 Antibody Screen NEGATIVE 12/11/17 05:20 Crossmatch IS Only See Detail 12/11/17 05:20 - Procedures Procedures: Procedures INSERTION OF INFUSION DEV INTO SUP VENA CAVA, PERC APPROACH (11/03/17) REMOVAL OF INFUSION DEV FROM GREAT VESSEL, LENS POLISHER HAND APPROACH (11/03/17) TRANSFUSE NONAUT FROZEN PLASMA IN PERIPH VEIN, PERC (11/03/17) TRANSFUSE NONAUT RED BLOOD CELLS IN CENTRAL VEIN, PERC (11/03/17)
[2017-12-14] MEDS: SODIUM CHLORIDE 0.9% 1,000 ML IV SCH ×2 (00:09→13:47)
[2017-12-14] MEDS: oxyCODONE 5 MG TABLET PO PRN ×2 (00:09→18:04)
[2017-12-14] MEDS: SODIUM CHLORIDE FLUSH 0.9% 10 ML SYRINGE IVP SCH ×3 (01:00→16:52)
[2017-12-14 02:47] LABS: EOSINOPHILS % (AUTO) 0.4 %; LYMPHOCYTES % (AUTO) 89.9 %; MEAN CORPUSCULAR HEMOGLOBIN 30.4 pg (27.0-31.0); MEAN CORPUSCULAR VOLUME 89.6 fL (81.0-99.0); MEAN PLATELET VOLUME 8.4 fL (7.9-10.8); MONOCYTES % (AUTO) 1.8 %; NEUTROPHILS % (AUTO) 7.9 %; RED BLOOD COUNT 2.12 10^6/uL (4.20-5.40); RED CELL DISTRIBUTION WIDTH 17.4 % (12.0-15.0)
[2017-12-14 02:49] LABS: VANCOMYCIN,TROUGH 17.6 ug/mL (5.0-15.0)
[2017-12-14 02:50] LABS: PLT - PLATELET COUNT 36 10^3/uL (130-450)
[2017-12-14 02:53] LABS: HGB - HEMOGLOBIN 6.4 g/dL (12.0-16.0); WHITE BLOOD COUNT 0.2 x10^3/uL (4.8-10.8)
[2017-12-14 02:55] LABS: ABNORMAL LYMPHS % (MANUAL) 0 %; BAND NEUTROPHILS % (MANUAL) 0 %
[2017-12-14] MEDS: VANCOMYCIN INJ 1.75 GM in SODIUM CHLORIDE 0.9% 500 ML IV SCH ×2 (03:08→16:50)
[2017-12-14 04:31] LABS: NEUTROPHILS % (MANUAL) 8 %
[2017-12-14 04:32] LABS: LYMPHOCYTES # (MANUAL) 0.2 10^3/uL (1.5-3.5); LYMPHOCYTES % (MANUAL) 92 %; PLATELET ESTIMATE, MANUAL DECREASED (<130,000) (NORMAL); RBC MORPHOLOGY (MULTIPLE) NORMAL APPEARANCE (NORMAL)
[2017-12-14 04:33] LABS: DIFFERENTIAL COMMENT MANUAL DIFFERENTIAL
[2017-12-14] MEDS: CLOTRIMAZOLE 10 MG LOZENGE MM SCH ×5 (06:22→22:50)
[2017-12-14] MEDS: CEFEPIME 2 GM in SODIUM CHLORIDE 0.9% MINIBAG 100 ML IV SCH ×3 (06:22→22:50)
[2017-12-14] MEDS: LIDOCAINE VISCOUS 2% 15 ML UDC MM PRN ×3 (09:06→18:04)
[2017-12-14] MEDS: POLYETHYLENE GLYCOL 3350 17 GM PACKET PO SCH (10:47)
[2017-12-14] MEDS: FAMOTIDINE 20 MG TABLET PO SCH (10:48)
[2017-12-14] MEDS: CHOLECALCIFEROL 1,000 UNIT TABLET PO SCH (10:48)
[2017-12-14] MEDS: FLUCONAZOLE 100 MG TABLET PO SCH (10:51)
[2017-12-14] MEDS: ACYCLOVIR 200 MG CAPSULE PO SCH (10:52)
[2017-12-14] MEDS: oxyCODONE ER 10 MG TABLET PO SCH ×2 (10:54→21:42)
[2017-12-14] MEDS: MIDOSTAURIN 50 MG PO SCH ×2 (10:55→21:43)
--- NOTE | 2017-12-14 12:23 | ONCOLOGY / HEMATOLOGY ---
DATE OF SERVICE: 12/12/2017 Physician: Roxanne Whittaker MD INPATIENT CONSULTATION CHIEF COMPLAINT/HISTORY OF HISTORY: Patient has been hospitalized for neutropenic fever. She is in the hospital currently. She reports a lot of pain in her mouth area and finds it hard to swallow solids or liquids. REVIEW OF SYSTEMS: Patient reports excessive fatigue and sleepiness and mouth pain. All others negative unless mentioned in the HPI. PAST MEDICAL HISTORY, FAMILY HISTORY: Reviewed and unchanged. ECOG performance status 1. PHYSICAL EXAMINATION VITAL SIGNS: As per chart. HEENT: Pallor present. No icterus. Oral mucosa moist. A lot of ulceration in the buccal mucosa on the right side and on the tongue. Tongue is coated. LYMPHATIC: No cervical or supraclavicular lymphadenopathy noted. LUNGS: Breathing normally without use of accessory muscles. No crackles. ABDOMEN: Soft, nontender. No organomegaly. EXTREMITIES: No pedal edema. Arthritic changes present. CARDIOVASCULAR: S1, S2 heard. Regular rate and rhythm. NEUROLOGIC: No focal findings. PSYCHIATRIC: Appropriate affect. SKIN: Dry skin and no tenderness. PICC line site without any issues. LABORATORY: Data shows an ANC of 0. ASSESSMENT AND PLAN: 1. Neutropenic fever. In the past, patient has had a history of Pseudomonas aeruginosa infection. At this point, the blood cultures are negative so far. She is on cefepime and vancomycin. She is also on prophylactic fluconazole and acyclovir. I would go ahead and recommend that we also give her Nystatin swish and swallow, given the coating in her mouth from the fungal elements. Patient will also benefit from oxycodone around the clock, given the pain in her mouth. 2. AML. Patient is status post 3 cycles of consolidation. She has tolerated them fairly well except for the hospitalization with neutropenic fevers. 3. Pain control, continue on Percocet give her oxycodone around the clock for the pain control. Thank you for taking care of Ms. Doshi. TD: 12/14/2017 11:44 [facility]ENTERLesly
--- NOTE | 2017-12-14 13:08 | PROVIDER PROGRESS NOTE ---
Assessment/Plan - Problem List (1) Febrile neutropenia Assessment/Plan: Continue empiric antibiotics. Cultures are neg thus far. Pt has no new complaints to suggest a new focus of infection. (2) Pancytopenia Assessment/Plan: Continue to monitor CBC daily, transfuse blood or plts as needed. 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 Qualified Code(s): C92.00 - Acute myeloblastic leukemia, not having achieved remission Assessment/Plan: As above (4) Thrush, oral Assessment/Plan: Continue treatment with Clotrimazole, mouth rinses and pain meds and soft diet - Current Meds Current Meds: Current Medications Generic Name Dose Route Start Last Admin Trade Name Freq PRN Reason Stop Dose Admin Acyclovir 400 mg 12/11/17 09:00 12/14/17 10:52 Zovirax PO 400 mg DAILY ESTELITA Administration Cholecalciferol 2,000 unit 12/11/17 09:00 12/14/17 10:48 Vitamin D3 PO 2,000 unit DAILY ESTELITA Administration Clotrimazole 10 mg 12/12/17 10:00 12/14/17 10:51 MM 10 mg 5XD ESTELITA Administration Famotidine 20 mg 12/11/17 09:00 12/14/17 10:48 Pepcid PO 20 mg DAILY ESTELITA Administration Fluconazole 400 mg 12/11/17 09:00 12/14/17 10:51 Diflucan PO 400 mg DAILY ESTELITA Administration Sodium Chloride 1,000 mls @ 100 mls/hr 12/10/17 23:45 12/14/17 00:09 Normal Saline 0.9% IV 100 mls/hr .Q10H ESTELITA Administration Cefepime HCl 2 gm/ Sodium 100 mls @ 200 mls/hr 12/11/17 12:00 12/14/17 06:55 Chloride IV Infused Q8H ESTELITA Infusion Vancomycin HCl 1.75 gm/ Sodium 500 mls @ 250 mls/hr 12/12/17 15:00 12/14/17 05:10 Chloride IV Infused Q12H ESTELITA Infusion Lidocaine HCl 15 ml 12/11/17 07:21 12/13/17 20:08 Xylocaine Viscous 2% MM 15 ml AC PRN Administration PAIN Lidocaine HCl 15 ml 12/11/17 07:22 12/14/17 09:06 Xylocaine Viscous 2% MM 15 ml Q4H PRN Administration Mouth Sore Pain Oxycodone HCl 5 mg 12/10/17 23:38 12/12/17 11:12 Roxicodone PO 5 mg Q4HR PRN Administration Pain 5 to 7 Oxycodone HCl 10 mg 12/10/17 23:38 12/14/17 00:09 Roxicodone PO 10 mg Q4HR PRN Administration Pain 8 to 10 Oxycodone HCl 10 mg 12/12/17 21:00 12/14/17 10:54 Oxycontin PO 10 mg BID ESTELITA Administration (Midostaurin [Rydapt 2 each 12/11/17 21:12 12/14/17 10:55 ] 50 Mg) PO Not Given BID ESTELITA Polyethylene Glycol 17 gm 12/11/17 09:00 12/14/17 10:47 Miralax PO 17 gm DAILY ESTELITA Administration Sodium Chloride 10 ml 12/10/17 23:38 12/12/17 06:49 Normal Saline Flush 0.9% IVP 10 ml PRN PRN Administration NEEDED PER PROVIDER ORDERS Sodium Chloride 10 ml 12/11/17 01:00 12/14/17 07:55 Normal Saline Flush 0.9% IVP Not Given 0100,0900,1700 ESTELITA Sodium Chloride 20 ml 12/11/17 03:56 12/11/17 06:00 Normal Saline Flush 0.9% IVP 20 ml PRN PRN Administration After Blood Draw - Lab Result Fish Bone Diagrams: 12/14/17 02:33 12/13/17 05:08 Subjective - Subjective Patient Reports: Other (Sad that she can't leave because of spiking a fever this am to 38.1) Nursing Reports: Other (Able to eat mashed potatoes nd pudding without pain.) Objective Vital Signs: Vital Signs - 24 hr 12/13/17 12/13/17 12/13/17 16:00 20:05 23:33 Temperature 37.5 C 37.4 C 37.6 C H Heart Rate [ 75 74 79 Radial] Respiratory 16 16 18 Rate Blood Pressure 167/62 H 155/54 H 118/42 L [Left Brachial artery] O2 Saturation 98 95 94 12/14/17 12/14/17 12/14/17 07:33 07:40 10:46 Temperature 37.7 C H 37.7 C H 38.1 C H Heart Rate [ 78 78 Radial] Respiratory 18 18 Rate Blood Pressure 138/45 H 138/45 H [Left Brachial artery] O2 Saturation 92 92 Oxygen O2 Source Room air I&O (Last 24 Hrs): Intake and Output Totals x24h 12/12/17 12/13/17 12/14/17 23:59 23:59 23:59 Intake Total 5695.000 4405 1360 Output Total 500 300 Balance 5195.000 4405 1060 General: Alert, Oriented x3 HEENT: Other (Alopecia. Tongue white and moist) Neck: Supple, No JVD Neuro: Non Focal Cardiovascular: No murmurs Respiratory: Breath sounds nml Abdomen: Soft Extremities: No edema - Results Results: Laboratory Results WBC 0.2 x10^3/uL (4.8-10.8) L* 12/14/17 02:33 RBC 2.12 10^6/uL (4.20-5.40) L 12/14/17 02:33 Hgb 6.4 g/dL (12.0-16.0) L* 12/14/17 02:33 Hct 19.0 % (37.0-47.0) L* 12/14/17 02:33 MCV 89.6 fL (81.0-99.0) 12/14/17 02:33 MCH 30.4 pg (27.0-31.0) 12/14/17 02:33 MCHC 34.0 g/dL (32.0-36.0) 12/14/17 02:33 RDW 17.4 % (12.0-15.0) H 12/14/17 02:33 Plt Count 36 10^3/uL (130-450) L 12/14/17 02:33 MPV 8.4 fL (7.9-10.8) 12/14/17 02:33 Neut # Not Reportable 12/14/17 02:33 Lymph # Not Reportable 12/14/17 02:33 [place]imer # Not Reportable 12/14/17 02:33 Eos # Not Reportable 12/14/17 02:33 Baso # Not Reportable 12/14/17 02:33 Absolute Nucleated RBC Not Reportable 12/14/17 02:33 Total Counted 25 12/14/17 02:33 Band Neuts % (Manual) 0 % (0-10) 12/14/17 02:33 Abnorm Lymph % (Manual) 0 % 12/14/17 02:33 Nucleated RBC % Not Reportable 12/14/17 02:33 Neutrophils # (Manual) 0.0 10^3/uL (1.5-6.6) L* 12/14/17 02:33 Lymphocytes # (Manual) 0.2 10^3/uL (1.5-3.5) L 12/14/17 02:33 Monocytes # (Manual) 0.0 10^3/uL (0.0-1.0) 12/14/17 02:33 Eosinophils # (Manual) 0.0 10^3/uL (0-0.7) 12/14/17 02:33 Basophils # (Manual) 0.0 10^3/uL (0-0.1) 12/14/17 02:33 Differential Comment MANUAL DIFFERENTIAL 12/14/17 02:33 Manual Slide Review Indicated 12/11/17 04:35 Platelet Estimate DECREASED (<130,000) (NORMAL) 12/14/17 02:33 Platelet Morphology NORMAL APPEARANCE (NORMAL) 12/11/17 04:35 RBC Morph Micro Appear 1+ ANISOCYTOSIS (NORMAL) 1+ POIKILOCYTOSIS (NORMAL) 2 + HYPOCHROMASIA (NORMAL) 1+ MICROCYTOSIS (NORMAL) 12/11/17 04:35 RBC Morph Micro Appear 1+ ANISOCYTOSIS (NORMAL) 1+ POIKILOCYTOSIS (NORMAL) 2 + HYPOCHROMASIA (NORMAL) 1+ MICROCYTOSIS (NORMAL) 12/11/17 04:35 RBC Morph Micro Appear NORMAL APPEARANCE (NORMAL) 12/13/17 05:08 RBC Morph Micro Appear NORMAL APPEARANCE (NORMAL) 12/14/17 02:33 Sodium 138 mmol/L (135-145) 12/13/17 05:08 Potassium 3.5 mmol/L (3.5-5.0) 12/13/17 05:08 Chloride 105 mmol/L (101-111) 12/13/17 05:08 Carbon Dioxide 28 mmol/L (21-32) 12/13/17 05:08 Anion Gap 5.0 (6-13) L 12/13/17 05:08 BUN 10 mg/dL (6-20) 12/13/17 05:08 Creatinine 0.4 mg/dL (0.4-1.0) 12/13/17 05:08 Estimated GFR (MDRD) 156 (>89) 12/13/17 05:08 Glucose 106 mg/dL (70-100) H 12/13/17 05:08 Lactic Acid 0.6 mmol/L (0.5-2.2) 12/11/17 04:35 Calcium 8.3 mg/dL (8.5-10.3) L 12/13/17 05:08 Total Bilirubin 1.0 mg/dL (0.2-1.0) 12/10/17 21:45 AST 34 IU/L (10-42) 12/10/17 21:45 ALT 38 IU/L (10-60) 12/10/17 21:45 Alkaline Phosphatase 89 IU/L (42-121) 12/10/17 21:45 B-Natriuretic Peptide 56 pg/mL (5-100) 12/10/17 21:45 Total Protein 6.3 g/dL (6.7-8.2) L 12/10/17 21:45 Albumin 3.4 g/dL (3.2-5.5) 12/10/17 21:45 Globulin 2.9 g/dL (2.1-4.2) 12/10/17 21:45 Albumin/Globulin Ratio 1.2 (1.0-2.2) 12/10/17 21:45 Lipase 23 U/L (22-51) 12/10/17 21:45 Urine Color YELLOW 12/10/17 21:53 Urine Clarity CLEAR (CLEAR) 12/10/17 21:53 Urine pH 5.0 PH (5.0-7.5) 12/10/17 21:53 Ur Specific [place] >=1.030 (1.002-1.030) H 12/10/17 21:53 Urine Protein TRACE mg/dL (NEGATIVE) 12/10/17 21:53 Urine Glucose (UA) NEGATIVE mg/dL (NEGATIVE) 12/10/17 21:53 Urine Ketones NEGATIVE mg/dL (NEGATIVE) 12/10/17 21:53 Urine Occult Blood SMALL (NEGATIVE) H 12/10/17 21:53 Urine Nitrite NEGATIVE (NEGATIVE) 12/10/17 21:53 Urine Bilirubin NEGATIVE (NEGATIVE) 12/10/17 21:53 Urine Urobilinogen 0.2 (NORMAL) E.U./dL (NORMAL) 12/10/17 21:53 Ur Leukocyte Esterase NEGATIVE (NEGATIVE) 12/10/17 21:53 Urine RBC 0-5 /HPF (0-5) 12/10/17 21:53 Urine WBC 0-3 /HPF (0-5) 12/10/17 21:53 Ur Squamous Epith Cells RARE Squamous (<= Few) 12/10/17 21:53 Urine Bacteria None Seen /HPF (None Seen) 12/10/17 21:53 Urine Mucus Few Strands 12/10/17 21:53 Ur Microscopic Review INDICATED 12/10/17 21:53 Urine Culture Comments NOT INDICATED 12/10/17 21:53 Last Dose Date UNK 12/14/17 02:33 Last Dose Time UNK 12/14/17 02:33 Vancomycin Trough 17.6 ug/mL (5.0-15.0) H 12/14/17 02:33 Influenza A (Rapid) Negative (Negative) 12/10/17 21:53 Influenza B (Rapid) Negative (Negative) 12/10/17 21:53 Blood Type O POSITIVE 12/11/17 05:20 Antibody Screen NEGATIVE 12/11/17 05:20 Crossmatch IS Only See Detail 12/11/17 05:20 - Procedures Procedures: Procedures INSERTION OF INFUSION DEV INTO SUP VENA CAVA, PERC APPROACH (11/03/17) REMOVAL OF INFUSION DEV FROM GREAT VESSEL, GAS APPLIANCE ADJUSTER APPROACH (11/03/17) TRANSFUSE NONAUT FROZEN PLASMA IN PERIPH VEIN, PERC (11/03/17) TRANSFUSE NONAUT RED BLOOD CELLS IN CENTRAL VEIN, PERC (11/03/17) ABX Reporting Has patient been on IV antibiotics over the past 48 hours?: Yes
[2017-12-14] MEDS: NYSTATIN 500000 UNITS/5 ML UDC PO SCH ×2 (16:50→21:41)
[2017-12-15] MEDS: SODIUM CHLORIDE 0.9% 1,000 ML IV SCH ×4 (02:02→19:15)
[2017-12-15] MEDS: SODIUM CHLORIDE FLUSH 0.9% 10 ML SYRINGE IVP SCH ×3 (02:03→17:08)
[2017-12-15] MEDS: SODIUM CHLORIDE FLUSH 0.9% 10 ML SYRINGE IVP PRN ×4 (02:03→22:14)
[2017-12-15 02:33] LABS: LYMPHOCYTES % (AUTO) 67.5 %; MEAN CORPUSCULAR HEMOGLOBIN 31.5 pg (27.0-31.0); MEAN CORPUSCULAR HGB CONC 35.3 g/dL (32.0-36.0); MEAN CORPUSCULAR VOLUME 89.2 fL (81.0-99.0); MEAN PLATELET VOLUME 9.8 fL (7.9-10.8); MONOCYTES % (AUTO) 3.9 %; NEUTROPHILS % (AUTO) 28.6 %; RED BLOOD COUNT 1.99 10^6/uL (4.20-5.40); RED CELL DISTRIBUTION WIDTH 17.5 % (12.0-15.0)
[2017-12-15 02:39] LABS: HGB - HEMOGLOBIN 6.3 g/dL (12.0-16.0); PLT - PLATELET COUNT 25 10^3/uL (130-450); WHITE BLOOD COUNT 0.3 x10^3/uL (4.8-10.8)
[2017-12-15 02:40] LABS: ABNORMAL LYMPHS % (MANUAL) 0 %
[2017-12-15 03:09] LABS: BAND NEUTROPHILS % (MANUAL) 4 %; LYMPHOCYTES # (MANUAL) 0.1 10^3/uL (1.5-3.5); LYMPHOCYTES % (MANUAL) 48 %; NEUTROPHILS # (MANUAL) 0.1 10^3/uL (1.5-6.6); NEUTROPHILS % (MANUAL) 44 %
[2017-12-15 03:10] LABS: DIFFERENTIAL COMMENT MANUAL DIFFERENTIAL; PLATELET ESTIMATE, MANUAL DECREASED (<130,000) (NORMAL); RBC MORPHOLOGY (MULTIPLE) NORMAL APPEARANCE (NORMAL)
[2017-12-15] MEDS: VANCOMYCIN INJ 1.75 GM in SODIUM CHLORIDE 0.9% 500 ML IV SCH ×2 (03:13→14:50)
[2017-12-15] MEDS: CEFEPIME 2 GM in SODIUM CHLORIDE 0.9% MINIBAG 100 ML IV SCH ×3 (06:17→22:58)
[2017-12-15] MEDS: CLOTRIMAZOLE 10 MG LOZENGE MM SCH ×5 (06:17→22:13)
[2017-12-15] MEDS: LIDOCAINE VISCOUS 2% 15 ML UDC MM PRN ×2 (06:18→17:08)
[2017-12-15] MEDS ORDERED: ACETAMINOPHEN 325 MG TABLET PO ONE (08:21)
[2017-12-15] MEDS: CHOLECALCIFEROL 1,000 UNIT TABLET PO SCH (08:40)
[2017-12-15] MEDS: FLUCONAZOLE 100 MG TABLET PO SCH (08:41)
[2017-12-15] MEDS: SENNA 8.6 MG TABLET PO SCH (08:44)
[2017-12-15] MEDS: FAMOTIDINE 20 MG TABLET PO SCH (08:44)
[2017-12-15] MEDS: NYSTATIN 500000 UNITS/5 ML UDC PO SCH ×4 (08:45→20:28)
[2017-12-15] MEDS: ACYCLOVIR 200 MG CAPSULE PO SCH (08:45)
[2017-12-15] MEDS: POLYETHYLENE GLYCOL 3350 17 GM PACKET PO SCH (08:46)
[2017-12-15] MEDS: oxyCODONE ER 10 MG TABLET PO SCH ×2 (08:46→20:28)
--- NOTE | 2017-12-15 12:44 | PROVIDER PROGRESS NOTE ---
Assessment/Plan - Problem List (1) Facial cellulitis Assessment/Plan: New swelling of L cheek. Pt said she wore her tooth guard for the first time last night, and today has less mouth pain. The L cheek swelling is similar to the R cheek cellulitis feeling that she had at her last admisssion with neutropenic fever. Will check BUN.creat and order a face CT. Will redraw blood cultures. Vanco antibiotic will be changed to Clindamycin iv for covering mouth jeri including anaerobes. (2) Febrile neutropenia Assessment/Plan: Continue empiric antibiotics. No cultures pos yet (3) Pancytopenia Assessment/Plan: Will order 2 U PRBC transfusion due to Hgb <7 and pt feels weak. 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 - Current Meds Current Meds: Current Medications Generic Name Dose Route Start Last Admin Trade Name Freq PRN Reason Stop Dose Admin Acyclovir 400 mg 12/11/17 09:00 12/15/17 08:45 Zovirax PO 400 mg DAILY ESTELITA Administration Cholecalciferol 2,000 unit 12/11/17 09:00 12/15/17 08:40 Vitamin D3 PO 2,000 unit DAILY ESTELITA Administration Clotrimazole 10 mg 12/12/17 10:00 12/15/17 11:05 MM 10 mg 5XD ESTELITA Administration Famotidine 20 mg 12/11/17 09:00 12/15/17 08:44 Pepcid PO 20 mg DAILY ESTELITA Administration Fluconazole 400 mg 12/11/17 09:00 12/15/17 08:41 Diflucan PO 400 mg DAILY ESTELITA Administration Sodium Chloride 1,000 mls @ 100 mls/hr 12/10/17 23:45 12/15/17 03:21 Normal Saline 0.9% IV Not Given .Q10H ESTELITA Cefepime HCl 2 gm/ Sodium 100 mls @ 200 mls/hr 12/11/17 12:00 12/15/17 06:50 Chloride IV Infused Q8H ESTELITA Infusion Vancomycin HCl 1.75 gm/ Sodium 500 mls @ 250 mls/hr 12/12/17 15:00 12/15/17 05:15 Chloride IV Infused Q12H ESTELITA Infusion Lidocaine HCl 15 ml 12/11/17 07:21 12/14/17 18:04 Xylocaine Viscous 2% MM 15 ml AC PRN Administration PAIN Lidocaine HCl 15 ml 12/11/17 07:22 12/15/17 06:18 Xylocaine Viscous 2% MM 15 ml Q4H PRN Administration Mouth Sore Pain Nystatin 5 ml 12/14/17 17:00 12/15/17 08:45 Mycostatin PO 5 ml QID ESTELITA Administration Oxycodone HCl 5 mg 12/10/17 23:38 12/14/17 18:04 Roxicodone PO 5 mg Q4HR PRN Administration Pain 5 to 7 Oxycodone HCl 10 mg 12/10/17 23:38 12/14/17 00:09 Roxicodone PO 10 mg Q4HR PRN Administration Pain 8 to 10 Oxycodone HCl 10 mg 12/12/17 21:00 12/15/17 08:46 Oxycontin PO 10 mg BID ESTELITA Administration Polyethylene Glycol 17 gm 12/11/17 09:00 12/15/17 08:46 Miralax PO 17 gm DAILY ESTELITA Administration Senna 8.6 - 17.2 mg 12/15/17 09:00 12/15/17 08:44 Senokot PO 8.6 mg DAILY ESTELITA Administration Sodium Chloride 10 ml 12/10/17 23:38 12/15/17 02:03 Normal Saline Flush 0.9% IVP 10 ml PRN PRN Administration NEEDED PER PROVIDER ORDERS Sodium Chloride 10 ml 12/11/17 01:00 12/15/17 08:49 Normal Saline Flush 0.9% IVP 40 ml 0100,[id number],1700 ESTELITA Administration Sodium Chloride 20 ml 12/11/17 03:56 12/15/17 02:03 Normal Saline Flush 0.9% IVP 10 ml PRN PRN Administration After Blood Draw - Lab Result Fish Bone Diagrams: 12/15/17 02:00 12/15/17 18:14 - Additional Planning My Orders: My Active Orders 12/14/17 14:53 oxyCODONE/ACET 5/325 [Percocet 5 mg/325 mg] 1 tab PO Q4HR PRN 12/14/17 17:00 Nystatin [Mycostatin] 5 ml PO QID 12/15/17 08:18 Transfuse RBCs Leukoreduced [RC] .ONCE 12/15/17 08:39 RBC, LEUKOREDUCED Routine TYPE AND SCREEN Routine 12/15/17 09:00 Senna [Senokot] 8.6 - 17.2 mg PO DAILY 12/16/17 05:00 CBC - COMP BLD CT W/AUTO DIFF [HEME] DAILYLAB 12/16/17 12:00 diphenhydrAMINE INJ [Benadryl Inj] 25 mg IVP ONCE ONE 12/17/17 05:00 CBC - COMP BLD CT W/AUTO DIFF [HEME] DAILYLAB 12/18/17 05:00 CBC - COMP BLD CT W/AUTO DIFF [HEME] DAILYLAB Subjective - Subjective Patient Reports: Other (Still running a low grade fever) Objective Vital Signs: Vital Signs - 24 hr 12/14/17 12/14/17 12/15/17 13:49 15:33 00:00 Temperature 37.7 C H 38.3 C H 37.7 C H Heart Rate [ 69 Brachial] Heart Rate [ 80 Radial] Respiratory 18 18 Rate Blood Pressure 159/69 H 119/51 L [Left Brachial artery] O2 Saturation 98 93 12/15/17 08:00 Temperature 38.1 C H Heart Rate [ 73 Brachial] Heart Rate [ Radial] Respiratory 18 Rate Blood Pressure 150/49 H [Left Brachial artery] O2 Saturation 97 Oxygen O2 Source Room air I&O (Last 24 Hrs): Intake and Output Totals x24h 12/13/17 12/14/17 12/15/17 23:59 23:59 23:59 Intake Total 4405 4990 1200 Output Total 300 Balance 4405 4690 1200 General: Alert, Oriented x3 HEENT: Other (L cheek swollen, firm, not red or tender) Neck: Supple, No JVD Neuro: Non Focal Cardiovascular: No murmurs Respiratory: No respiratory distress Abdomen: Soft Extremities: No edema - Results Results: Laboratory Results WBC 0.3 x10^3/uL (4.8-10.8) L* 12/15/17 02:00 RBC 1.99 10^6/uL (4.20-5.40) L 12/15/17 02:00 Hgb 6.3 g/dL (12.0-16.0) L* 12/15/17 02:00 Hct 17.7 % (37.0-47.0) L* 12/15/17 02:00 MCV 89.2 fL (81.0-99.0) 12/15/17 02:00 MCH 31.5 pg (27.0-31.0) H 12/15/17 02:00 MCHC 35.3 g/dL (32.0-36.0) 12/15/17 02:00 RDW 17.5 % (12.0-15.0) H 12/15/17 02:00 Plt Count 25 10^3/uL (130-450) L* 12/15/17 02:00 MPV 9.8 fL (7.9-10.8) 12/15/17 02:00 Neut # Not Reportable 12/15/17 02:00 Lymph # Not Reportable 12/15/17 02:00 [place] # Not Reportable 12/15/17 02:00 Eos # Not Reportable 12/15/17 02:00 Baso # Not Reportable 12/15/17 02:00 Absolute Nucleated RBC Not Reportable 12/15/17 02:00 Total Counted 25 12/15/17 02:00 Band Neuts % (Manual) 4 % (0-10) 12/15/17 02:00 Abnorm Lymph % (Manual) 0 % 12/15/17 02:00 Nucleated RBC % Not Reportable 12/15/17 02:00 Neutrophils # (Manual) 0.1 10^3/uL (1.5-6.6) L* 12/15/17 02:00 Lymphocytes # (Manual) 0.1 10^3/uL (1.5-3.5) L 12/15/17 02:00 Monocytes # (Manual) 0.0 10^3/uL (0.0-1.0) 12/15/17 02:00 Eosinophils # (Manual) 0.0 10^3/uL (0-0.7) 12/15/17 02:00 Basophils # (Manual) 0.0 10^3/uL (0-0.1) 12/15/17 02:00 Differential Comment MANUAL DIFFERENTIAL 12/15/17 02:00 Manual Slide Review Indicated 12/11/17 04:35 Platelet Estimate DECREASED (<130,000) (NORMAL) 12/15/17 02:00 Platelet Morphology NORMAL APPEARANCE (NORMAL) 12/11/17 04:35 RBC Morph Micro Appear 1+ ANISOCYTOSIS (NORMAL) 1+ POIKILOCYTOSIS (NORMAL) 2 + HYPOCHROMASIA (NORMAL) 1+ MICROCYTOSIS (NORMAL) 12/11/17 04:35 RBC Morph Micro Appear NORMAL APPEARANCE (NORMAL) 12/13/17 05:08 RBC Morph Micro Appear NORMAL APPEARANCE (NORMAL) 12/14/17 02:33 RBC Morph Micro Appear NORMAL APPEARANCE (NORMAL) 12/15/17 02:00 Sodium 138 mmol/L (135-145) 12/13/17 05:08 Potassium 3.5 mmol/L (3.5-5.0) 12/13/17 05:08 Chloride 105 mmol/L (101-111) 12/13/17 05:08 Carbon Dioxide 28 mmol/L (21-32) 12/13/17 05:08 Anion Gap 5.0 (6-13) L 12/13/17 05:08 BUN 10 mg/dL (6-20) 12/13/17 05:08 Creatinine 0.4 mg/dL (0.4-1.0) 12/13/17 05:08 Estimated GFR (MDRD) 156 (>89) 12/13/17 05:08 Glucose 106 mg/dL (70-100) H 12/13/17 05:08 Lactic Acid 0.6 mmol/L (0.5-2.2) 12/11/17 04:35 Calcium 8.3 mg/dL (8.5-10.3) L 12/13/17 05:08 Total Bilirubin 1.0 mg/dL (0.2-1.0) 12/10/17 21:45 AST 34 IU/L (10-42) 12/10/17 21:45 ALT 38 IU/L (10-60) 12/10/17 21:45 Alkaline Phosphatase 89 IU/L (42-121) 12/10/17 21:45 B-Natriuretic Peptide 56 pg/mL (5-100) 12/10/17 21:45 Total Protein 6.3 g/dL (6.7-8.2) L 12/10/17 21:45 Albumin 3.4 g/dL (3.2-5.5) 12/10/17 21:45 Globulin 2.9 g/dL (2.1-4.2) 12/10/17 21:45 Albumin/Globulin Ratio 1.2 (1.0-2.2) 12/10/17 21:45 Lipase 23 U/L (22-51) 12/10/17 21:45 Urine Color YELLOW 12/10/17 21:53 Urine Clarity CLEAR (CLEAR) 12/10/17 21:53 Urine pH 5.0 PH (5.0-7.5) 12/10/17 21:53 Ur Specific [place] >=1.030 (1.002-1.030) H 12/10/17 21:53 Urine Protein TRACE mg/dL (NEGATIVE) 12/10/17 21:53 Urine Glucose (UA) NEGATIVE mg/dL (NEGATIVE) 12/10/17 21:53 Urine Ketones NEGATIVE mg/dL (NEGATIVE) 12/10/17 21:53 Urine Occult Blood SMALL (NEGATIVE) H 12/10/17 21:53 Urine Nitrite NEGATIVE (NEGATIVE) 12/10/17 21:53 Urine Bilirubin NEGATIVE (NEGATIVE) 12/10/17 21:53 Urine Urobilinogen 0.2 (NORMAL) E.U./dL (NORMAL) 12/10/17 21:53 Ur Leukocyte Esterase NEGATIVE (NEGATIVE) 12/10/17 21:53 Urine RBC 0-5 /HPF (0-5) 12/10/17 21:53 Urine WBC 0-3 /HPF (0-5) 12/10/17 21:53 Ur Squamous Epith Cells RARE Squamous (<= Few) 12/10/17 21:53 Urine Bacteria None Seen /HPF (None Seen) 12/10/17 21:53 Urine Mucus Few Strands 12/10/17 21:53 Ur Microscopic Review INDICATED 12/10/17 21:53 Urine Culture Comments NOT INDICATED 12/10/17 21:53 Last Dose Date UNK 12/14/17 02:33 Last Dose Time UNK 12/14/17 02:33 Vancomycin Trough 17.6 ug/mL (5.0-15.0) H 12/14/17 02:33 Influenza A (Rapid) Negative (Negative) 12/10/17 21:53 Influenza B (Rapid) Negative (Negative) 12/10/17 21:53 Blood Type O POSITIVE 12/15/17 08:39 Antibody Screen NEGATIVE 12/15/17 08:39 Crossmatch IS Only See Detail 12/15/17 08:39 - Procedures Procedures: Procedures INSERTION OF INFUSION DEV INTO SUP VENA CAVA, PERC APPROACH (11/03/17) REMOVAL OF INFUSION DEV FROM GREAT VESSEL, TRAINING REPRESENTATIVE APPROACH (11/03/17) TRANSFUSE NONAUT FROZEN PLASMA IN PERIPH VEIN, PERC (11/03/17) TRANSFUSE NONAUT RED BLOOD CELLS IN CENTRAL VEIN, PERC (11/03/17)
[2017-12-15] MEDS: oxyCOD/ACETAMIN 5 MG/325 MG TABLET PO PRN (13:38)
[2017-12-15] MEDS ORDERED: SODIUM CHLORIDE FLUSH 0.9% 10 ML SYRINGE ONE (14:00)
[2017-12-15] MEDS: IOPAMIDOL-300 100 ML VIAL IVP ONE ×2 (16:21→20:15)
[2017-12-15] MEDS ORDERED: IOPAMIDOL-300 100 ML VIAL ONE (16:27)
[2017-12-15 18:24] LABS: CALCIUM 8.6 mg/dL (8.5-10.3); CREATININE 0.5 mg/dL (0.4-1.0)
[2017-12-15] MEDS ORDERED: CLINDAMYCIN 600 MG/50 ML 50 ML IV SCH (19:00)
--- NOTE | 2017-12-15 22:03 | CT Report ---
EXAM: CT MAXILLOFACIAL WITH CONTRAST EXAM DATE: 12/15/2017 08:37 PM. CLINICAL HISTORY: 72-year-old female, left facial swelling. COMPARISONS: CT maxillofacial 11/02/2017 TECHNIQUE: Thin-section axial images were acquired of the face after administration of intravenous co ntrast. Post-processing: Coronal and sagittal reformats. Other: None. IV contrast: 80ML ISOVUE 300. In accordance with CT protocol optimization, one or more of the following dose reduction techniques w ere utilized for this exam: automated exposure control, adjustment of mA and/or KV based on patient s ize, or use of iterative reconstructive technique. FINDINGS: Orbits:Symmetric and unremarkable. Soft Tissue: There is extensive soft tissue swelling and inflammatory change along the left face exte nding from the level of the left maxillary sinus to the left mandible. No soft tissue mass. The infra temporal fossa and parapharyngeal spaces are unremarkable. Bones: No fracture or bone lesion. Temporomandibular Joints: The temporomandibular joints are symmetric and normally located. Sinuses: Moderate mucosal thickening bilateral maxillary sinuses with a mucous retention cyst/polyp w ithin the right maxillary sinus. Mild mucosal thickening left frontal sinus and anterior ethmoid air cells bilaterally. Mild mucosal thickening frontal sphenoid sinuses. Glands: The parotid glands bilaterally appear unremarkable. The submandibular glands are not well vis ualized on either side, may represent fatty atrophy. Other: None. IMPRESSION: 1. Extensive soft tissue swelling and inflammatory change along the left face extending from the leve l of the left maxillary sinus to the left mandible. This is most consistent with left facial soft tis eliana cellulitis. 2. No CT evidence of soft tissue abscess formation at this time. No evidence of soft tissue mass. 3. Chronic pansinusitis. [facility] Referring Provider Line: [phone] SITE ID: [id number]
[2017-12-15] MEDS ORDERED: MAGNESIUM HYDROXIDE 2,400 MG/30 ML UDC PO ONE (23:23)
[2017-12-16] MEDS: SODIUM CHLORIDE FLUSH 0.9% 10 ML SYRINGE IVP SCH ×3 (02:27→16:54)
[2017-12-16] MEDS: SODIUM CHLORIDE 0.9% 1,000 ML IV SCH ×2 (05:36→18:59)
[2017-12-16] MEDS: CLINDAMYCIN 600 MG/50 ML 50 ML IV SCH ×4 (05:36→22:36)
[2017-12-16] MEDS: CLOTRIMAZOLE 10 MG LOZENGE MM SCH ×5 (05:36→21:49)
[2017-12-16] MEDS: SODIUM CHLORIDE FLUSH 0.9% 10 ML SYRINGE IVP PRN ×2 (05:37)
[2017-12-16 06:36] LABS: BASOPHILS % (AUTO) 0.1 %; EOSINOPHILS % (AUTO) 0.1 %; HGB - HEMOGLOBIN 8.2 g/dL (12.0-16.0); LYMPHOCYTES % (AUTO) 44.9 %; MEAN CORPUSCULAR HEMOGLOBIN 30.7 pg (27.0-31.0); MEAN CORPUSCULAR HGB CONC 34.1 g/dL (32.0-36.0); MEAN CORPUSCULAR VOLUME 89.9 fL (81.0-99.0); MEAN PLATELET VOLUME 8.3 fL (7.9-10.8); MONOCYTES % (AUTO) 2.8 %; NEUTROPHILS % (AUTO) 52.1 %; RED BLOOD COUNT 2.67 10^6/uL (4.20-5.40); RED CELL DISTRIBUTION WIDTH 15.9 % (12.0-15.0)
[2017-12-16 06:38] LABS: WHITE BLOOD COUNT 0.5 x10^3/uL (4.8-10.8)
[2017-12-16 06:39] LABS: PLT - PLATELET COUNT 17 10^3/uL (130-450)
[2017-12-16 06:40] LABS: ABNORMAL LYMPHS % (MANUAL) 0 %
[2017-12-16 06:57] LABS: BAND NEUTROPHILS % (MANUAL) 8 %; DIFFERENTIAL COMMENT MANUAL DIFFERENTIAL; LYMPHOCYTES # (MANUAL) 0.2 10^3/uL (1.5-3.5); LYMPHOCYTES % (MANUAL) 32 %; NEUTROPHILS % (MANUAL) 52 %; PLATELET ESTIMATE, MANUAL DECREASED (<130,000) (NORMAL); RBC MORPHOLOGY (MULTIPLE) NORMAL APPEARANCE (NORMAL)
[2017-12-16 06:58] LABS: NEUTROPHILS # (MANUAL) 0.3 10^3/uL (1.5-6.6)
[2017-12-16] MEDS: CEFEPIME 2 GM in SODIUM CHLORIDE 0.9% MINIBAG 100 ML IV SCH ×3 (07:16→21:51)
[2017-12-16] MEDS: SENNA 8.6 MG TABLET PO SCH (08:40)
[2017-12-16] MEDS: NYSTATIN 500000 UNITS/5 ML UDC PO SCH ×4 (08:40→21:50)
[2017-12-16] MEDS: POLYETHYLENE GLYCOL 3350 17 GM PACKET PO SCH (08:40)
[2017-12-16] MEDS: FAMOTIDINE 20 MG TABLET PO SCH (08:41)
[2017-12-16] MEDS: oxyCODONE ER 10 MG TABLET PO SCH ×2 (08:41→21:48)
[2017-12-16] MEDS: ACYCLOVIR 200 MG CAPSULE PO SCH (08:41)
[2017-12-16] MEDS: FLUCONAZOLE 100 MG TABLET PO SCH (08:42)
[2017-12-16] MEDS: CHOLECALCIFEROL 1,000 UNIT TABLET PO SCH (08:44)
[2017-12-16] MEDS ORDERED: diphenhydrAMINE INJ 50 MG/ML VIAL IVP ONE (12:00)
[2017-12-16] MEDS: oxyCOD/ACETAMIN 5 MG/325 MG TABLET PO PRN (13:18)
--- NOTE | 2017-12-16 15:15 | PROVIDER PROGRESS NOTE ---
Assessment/Plan - Problem List (1) Facial cellulitis Assessment/Plan: Pt now on Clinda iv. Will determine best cleaning of mouth guard, so as not to cause repeat infections. (2) Febrile neutropenia Assessment/Plan: No fever past 24 hours. Probable DCh tomorrow, if H/H and plts are acceptable. (3) Pancytopenia Assessment/Plan: Pt had plt transfusion 3 days ago, and has a slowly dropping plt count since then. She had 2 U PRBCs transfused again yesterday and H/H improved today. WBC is recovering. If H/H and plts are acceptable tomorrow, will DCh home tomorrow. 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 (5) Thrush, oral Assessment/Plan: Improving on treatment. - Current Meds Current Meds: Current Medications Generic Name Dose Route Start Last Admin Trade Name Satnamq PRN Reason Stop Dose Admin Acyclovir 400 mg 12/11/17 09:00 12/16/17 08:41 Zovirax PO 400 mg DAILY ESTELITA Administration Cholecalciferol 2,000 unit 12/11/17 09:00 12/16/17 08:44 Vitamin D3 PO 2,000 unit DAILY ESTELITA Administration Clotrimazole 10 mg 12/12/17 10:00 12/16/17 14:10 MM 10 mg 5XD ESTELITA Administration Famotidine 20 mg 12/11/17 09:00 12/16/17 08:41 Pepcid PO 20 mg DAILY ESTELITA Administration Fluconazole 400 mg 12/11/17 09:00 12/16/17 08:42 Diflucan PO 400 mg DAILY ESTELITA Administration Sodium Chloride 1,000 mls @ 100 mls/hr 12/10/17 23:45 12/16/17 05:36 Normal Saline 0.9% IV 100 mls/hr .Q10H ESTELITA Administration Cefepime HCl 2 gm/ Sodium 100 mls @ 200 mls/hr 12/11/17 12:00 12/16/17 14:29 Chloride IV 200 mls/hr Q8H ESTELITA Administration Clindamycin Phosphate 50 mls @ 100 mls/hr 12/16/17 05:00 12/16/17 11:53 Cleocin 600 Mg/50 Ml IV Infused Q6H ESTELITA Infusion Lidocaine HCl 15 ml 12/11/17 07:21 12/15/17 17:08 Xylocaine Viscous 2% MM 15 ml AC PRN Administration PAIN Lidocaine HCl 15 ml 12/11/17 07:22 12/15/17 06:18 Xylocaine Viscous 2% MM 15 ml Q4H PRN Administration Mouth Sore Pain Nystatin 5 ml 12/14/17 17:00 12/16/17 13:18 Mycostatin PO 5 ml QID ESTELITA Administration Oxycodone HCl 5 mg 12/10/17 23:38 12/14/17 18:04 Roxicodone PO 5 mg Q4HR PRN Administration Pain 5 to 7 Oxycodone HCl 10 mg 12/10/17 23:38 12/14/17 00:09 Roxicodone PO 10 mg Q4HR PRN Administration Pain 8 to 10 Oxycodone HCl 10 mg 12/12/17 21:00 12/16/17 08:41 Oxycontin PO 10 mg BID ESTELITA Administration Oxycodone/Acetaminophen 1 tab 12/14/17 14:53 12/16/17 13:18 Percocet 5 Mg/325 Mg PO 1 tab Q4HR PRN Administration PAIN Polyethylene Glycol 17 gm 12/11/17 09:00 12/16/17 08:40 Miralax PO 17 gm DAILY ESTELITA Administration Senna 8.6 - 17.2 mg 12/15/17 09:00 12/16/17 08:40 Senokot PO 8.6 mg DAILY ESTELITA Administration Sodium Chloride 10 ml 12/10/17 23:38 12/16/17 05:37 Normal Saline Flush 0.9% IVP 10 ml PRN PRN Administration NEEDED PER PROVIDER ORDERS Sodium Chloride 10 ml 12/11/17 01:00 12/16/17 09:58 Normal Saline Flush 0.9% IVP 20 ml 0100,0900,1700 ESTELITA Administration Sodium Chloride 20 ml 12/11/17 03:56 12/16/17 05:37 Normal Saline Flush 0.9% IVP 20 ml PRN PRN Administration After Blood Draw - Lab Result Fish Bone Diagrams: 12/16/17 05:30 12/15/17 18:14 - Additional Planning My Orders: My Active Orders 12/16/17 05:00 Clindamycin 600 mg/50 ml [Cleocin 600 mg/50 ml] 50 ml IV Q6H 12/17/17 05:00 CBC - COMP BLD CT W/AUTO DIFF [HEME] DAILYLAB 12/18/17 05:00 CBC - COMP BLD CT W/AUTO DIFF [HEME] DAILYLAB Subjective - Subjective Patient Reports: Feeling Better, Resting Comfortably, Other (She wore her mouth guard for the second night. It helps the pain in R jaw, but worsened the L cheek yesterday. She usually rinses it in a powder mixed with water daily, that is changed every 7 days. Here she has not had it.) Objective Vital Signs: Vital Signs - 24 hr 12/15/17 12/15/17 12/15/17 15:50 17:11 17:17 Temperature 37.9 C H 37.7 C H 37.7 C H Heart Rate 77 Heart Rate [ 72 77 Brachial] Respiratory 16 18 18 Rate Blood Pressure 137/56 H Blood Pressure 118/58 L 137/56 H [Left Brachial artery] O2 Saturation 96 98 12/15/17 12/15/17 12/15/17 18:51 19:10 22:09 Temperature 37.4 C 37.2 C 38.2 C H Heart Rate 70 73 78 Heart Rate [ Brachial] Respiratory 16 18 16 Rate Blood Pressure 137/58 H 139/62 H 128/47 L Blood Pressure [Left Brachial artery] O2 Saturation 12/16/17 12/16/17 05:10 07:58 Temperature 37.2 C 37.1 C Heart Rate Heart Rate [ 68 70 Brachial] Respiratory 17 16 Rate Blood Pressure Blood Pressure 120/45 L 121/54 L [Left Brachial artery] O2 Saturation 95 96 Oxygen O2 Source Room air I&O (Last 24 Hrs): Intake and Output Totals x24h 12/14/17 12/15/17 12/16/17 23:59 23:59 23:59 Intake Total 4990 4838 2160 Output Total 300 Balance 4690 4838 2160 General: Alert, Oriented x3 HEENT: Other (Tongue on top and L lateral side has a white film, no longer black. L cheek is less firm and less swollen, not red or tender.) Neck: Supple, No JVD Neuro: Non Focal Cardiovascular: Regular rate, No murmurs Respiratory: No respiratory distress Abdomen: Soft Extremities: No edema - Results Results: Laboratory Results WBC 0.5 x10^3/uL (4.8-10.8) L* 12/16/17 05:30 RBC 2.67 10^6/uL (4.20-5.40) L 12/16/17 05:30 Hgb 8.2 g/dL (12.0-16.0) L 12/16/17 05:30 Hct 24.0 % (37.0-47.0) L 12/16/17 05:30 MCV 89.9 fL (81.0-99.0) 12/16/17 05:30 MCH 30.7 pg (27.0-31.0) 12/16/17 05:30 MCHC 34.1 g/dL (32.0-36.0) 12/16/17 05:30 RDW 15.9 % (12.0-15.0) H 12/16/17 05:30 Plt Count 17 10^3/uL (130-450) L* 12/16/17 05:30 MPV 8.3 fL (7.9-10.8) 12/16/17 05:30 Neut # Not Reportable 12/16/17 05:30 Lymph # Not Reportable 12/16/17 05:30 [place] # Not Reportable 12/16/17 05:30 Eos # Not Reportable 12/16/17 05:30 Baso # Not Reportable 12/16/17 05:30 Absolute Nucleated RBC Not Reportable 12/16/17 05:30 Total Counted 25 12/16/17 05:30 Band Neuts % (Manual) 8 % (0-10) 12/16/17 05:30 Abnorm Lymph % (Manual) 0 % 12/16/17 05:30 Nucleated RBC % Not Reportable 12/16/17 05:30 Neutrophils # (Manual) 0.3 10^3/uL (1.5-6.6) L* 12/16/17 05:30 Lymphocytes # (Manual) 0.2 10^3/uL (1.5-3.5) L 12/16/17 05:30 Monocytes # (Manual) 0.0 10^3/uL (0.0-1.0) 12/16/17 05:30 Eosinophils # (Manual) 0.0 10^3/uL (0-0.7) 12/16/17 05:30 Basophils # (Manual) 0.0 10^3/uL (0-0.1) 12/16/17 05:30 Differential Comment MANUAL DIFFERENTIAL 12/16/17 05:30 Manual Slide Review Indicated 12/11/17 04:35 Platelet Estimate DECREASED (<130,000) (NORMAL) 12/16/17 05:30 Platelet Morphology NORMAL APPEARANCE (NORMAL) 12/11/17 04:35 RBC Morph Micro Appear NORMAL APPEARANCE (NORMAL) 12/13/17 05:08 RBC Morph Micro Appear NORMAL APPEARANCE (NORMAL) 12/14/17 02:33 RBC Morph Micro Appear NORMAL APPEARANCE (NORMAL) 12/15/17 02:00 RBC Morph Micro Appear NORMAL APPEARANCE (NORMAL) 12/16/17 05:30 Sodium 135 mmol/L (135-145) 12/15/17 18:14 Potassium 3.9 mmol/L (3.5-5.0) 12/15/17 18:14 Chloride 100 mmol/L (101-111) L 12/15/17 18:14 Carbon Dioxide 27 mmol/L (21-32) 12/15/17 18:14 Anion Gap 8.0 (6-13) 12/15/17 18:14 BUN 10 mg/dL (6-20) 12/15/17 18:14 Creatinine 0.5 mg/dL (0.4-1.0) 12/15/17 18:14 Estimated GFR (MDRD) 121 (>89) 12/15/17 18:14 Glucose 146 mg/dL (70-100) H 12/15/17 18:14 Lactic Acid 0.6 mmol/L (0.5-2.2) 12/11/17 04:35 Calcium 8.6 mg/dL (8.5-10.3) 12/15/17 18:14 Total Bilirubin 1.0 mg/dL (0.2-1.0) 12/10/17 21:45 AST 34 IU/L (10-42) 12/10/17 21:45 ALT 38 IU/L (10-60) 12/10/17 21:45 Alkaline Phosphatase 89 IU/L (42-121) 12/10/17 21:45 B-Natriuretic Peptide 56 pg/mL (5-100) 12/10/17 21:45 Total Protein 6.3 g/dL (6.7-8.2) L 12/10/17 21:45 Albumin 3.4 g/dL (3.2-5.5) 12/10/17 21:45 Globulin 2.9 g/dL (2.1-4.2) 12/10/17 21:45 Albumin/Globulin Ratio 1.2 (1.0-2.2) 12/10/17 21:45 Lipase 23 U/L (22-51) 12/10/17 21:45 Urine Color YELLOW 12/10/17 21:53 Urine Clarity CLEAR (CLEAR) 12/10/17 21:53 Urine pH 5.0 PH (5.0-7.5) 12/10/17 21:53 Ur Specific [place] >=1.030 (1.002-1.030) H 12/10/17 21:53 Urine Protein TRACE mg/dL (NEGATIVE) 12/10/17 21:53 Urine Glucose (UA) NEGATIVE mg/dL (NEGATIVE) 12/10/17 21:53 Urine Ketones NEGATIVE mg/dL (NEGATIVE) 12/10/17 21:53 Urine Occult Blood SMALL (NEGATIVE) H 12/10/17 21:53 Urine Nitrite NEGATIVE (NEGATIVE) 12/10/17 21:53 Urine Bilirubin NEGATIVE (NEGATIVE) 12/10/17 21:53 Urine Urobilinogen 0.2 (NORMAL) E.U./dL (NORMAL) 12/10/17 21:53 Ur Leukocyte Esterase NEGATIVE (NEGATIVE) 12/10/17 21:53 Urine RBC 0-5 /HPF (0-5) 12/10/17 21:53 Urine WBC 0-3 /HPF (0-5) 12/10/17 21:53 Ur Squamous Epith Cells RARE Squamous (<= Few) 12/10/17 21:53 Urine Bacteria None Seen /HPF (None Seen) 12/10/17 21:53 Urine Mucus Few Strands 12/10/17 21:53 Ur Microscopic Review INDICATED 12/10/17 21:53 Urine Culture Comments NOT INDICATED 12/10/17 21:53 Last Dose Date UNK 12/14/17 02:33 Last Dose Time UNK 12/14/17 02:33 Vancomycin Trough 17.6 ug/mL (5.0-15.0) H 12/14/17 02:33 Influenza A (Rapid) Negative (Negative) 12/10/17 21:53 Influenza B (Rapid) Negative (Negative) 12/10/17 21:53 Blood Type O POSITIVE 12/15/17 08:39 Antibody Screen NEGATIVE 12/15/17 08:39 Crossmatch IS Only See Detail 12/15/17 08:39 - Procedures Procedures: Procedures INSERTION OF INFUSION DEV INTO SUP VENA CAVA, PERC APPROACH (11/03/17) REMOVAL OF INFUSION DEV FROM GREAT VESSEL, DELIVERER FOOD APPROACH (11/03/17) TRANSFUSE NONAUT FROZEN PLASMA IN PERIPH VEIN, PERC (11/03/17) TRANSFUSE NONAUT RED BLOOD CELLS IN CENTRAL VEIN, PERC (11/03/17) ABX Reporting Has patient been on IV antibiotics over the past 48 hours?: Yes
[2017-12-16] MEDS ORDERED: MAGNESIUM CITRATE 296 ML BOTTLE PO ONE (20:55)
[2017-12-16] MEDS ORDERED: CHLORHEXIDINE GLUCONATE 15 ML UDC PO SCH (21:00)
[2017-12-17] MEDS: SODIUM CHLORIDE FLUSH 0.9% 10 ML SYRINGE IVP SCH ×2 (03:10→09:42)
[2017-12-17] MEDS: CLINDAMYCIN 600 MG/50 ML 50 ML IV SCH ×2 (04:51→11:24)
[2017-12-17] MEDS: CLOTRIMAZOLE 10 MG LOZENGE MM SCH ×2 (06:30→09:41)
[2017-12-17] MEDS: CEFEPIME 2 GM in SODIUM CHLORIDE 0.9% MINIBAG 100 ML IV SCH (06:30)
[2017-12-17 07:04] LABS: BASOPHILS % (AUTO) 0.2 %; EOSINOPHILS % (AUTO) 0.2 %; HGB - HEMOGLOBIN 7.1 g/dL (12.0-16.0); LYMPHOCYTES % (AUTO) 51.9 %; MEAN CORPUSCULAR HEMOGLOBIN 30.5 pg (27.0-31.0); MEAN CORPUSCULAR VOLUME 89.7 fL (81.0-99.0); MEAN PLATELET VOLUME 8.1 fL (7.9-10.8); MONOCYTES % (AUTO) 2.6 %; NEUTROPHILS % (AUTO) 45.1 %; RED BLOOD COUNT 2.34 10^6/uL (4.20-5.40); RED CELL DISTRIBUTION WIDTH 16.2 % (12.0-15.0)
[2017-12-17] MEDS: SODIUM CHLORIDE 0.9% 1,000 ML IV SCH (07:06)
[2017-12-17 07:10] LABS: PLT - PLATELET COUNT 11 10^3/uL (130-450); WHITE BLOOD COUNT 0.4 x10^3/uL (4.8-10.8)
[2017-12-17 07:11] LABS: ABNORMAL LYMPHS % (MANUAL) 0 %
[2017-12-17 08:34] LABS: NEUTROPHILS % (MANUAL) 39 %
[2017-12-17 08:35] LABS: BAND NEUTROPHILS % (MANUAL) 2 %; LYMPHOCYTES # (MANUAL) 0.2 10^3/uL (1.5-3.5); LYMPHOCYTES % (MANUAL) 50 %
[2017-12-17 08:40] LABS: PLATELET ESTIMATE, MANUAL DECREASED (<130,000) (NORMAL); RBC MORPHOLOGY (MULTIPLE) NORMAL APPEARANCE (NORMAL)
[2017-12-17 08:43] LABS: NEUTROPHILS # (MANUAL) 0.2 10^3/uL (1.5-6.6)
[2017-12-17 09:23] VITALS: BP 131/47
[2017-12-17] MEDS: CHOLECALCIFEROL 1,000 UNIT TABLET PO SCH (09:40)
[2017-12-17] MEDS: oxyCODONE ER 10 MG TABLET PO SCH (09:40)
[2017-12-17] MEDS: FLUCONAZOLE 100 MG TABLET PO SCH (09:40)
[2017-12-17] MEDS: FAMOTIDINE 20 MG TABLET PO SCH (09:40)
[2017-12-17] MEDS: ACYCLOVIR 200 MG CAPSULE PO SCH (09:41)
[2017-12-17] MEDS: NYSTATIN 500000 UNITS/5 ML UDC PO SCH (09:41)
[2017-12-17] MEDS: POLYETHYLENE GLYCOL 3350 17 GM PACKET PO SCH (09:42)
[2017-12-17] MEDS: SENNA 8.6 MG TABLET PO SCH (09:42)
--- NOTE | 2017-12-17 12:30 | Discharge Plan ---
Discharge Plan Disposition: 01 Home, Self Care Condition: Serious Prescriptions: Clindamycin HCl [Cleocin HCl] 600 mg PO BID #40 capsule oxyCODONE ER [OxyCONTIN] 10 mg PO BID PRN #14 tablet PRN Reason: Severe Pain Saccharomyces Boulardii [Florastor] 250 mg PO BID #24 capsule Diet: Soft Activity Restrictions: Activity as Tolerated Shower Restrictions: No Driving Restrictions: Yes Additional Instructions or Follow Up instructions: Please start soaking your dental appliance in Peridex solution for 10 min every night, prior to using it. Take the Clindamycin antibiotic orally for 10 days. While on an antibiotic, use Florastor to help prevent diarrhea. Advance your soft diet to your usual solid diet at your own pace. Stay hydrated. Use the Oxycontin for mouth pain, as advised by Dr Whittaker. See the [facility] clinic TOMORROW 12/19/17 for a CBC blood test, to determine if you need transfusions of blood or platelets. Resume all your other pre-hospital medications as previously ordered. Follow-Up Care: [facility] - Medical No Smoking: If you smoke, Please STOP! Call for help. Follow-up with: Мария Senior DO [Primary Care Provider] - Evert Orozco ARNP [Credentialed Staff Provider] -
--- NOTE | 2017-12-17 21:18 | DISCHARGE SUMMARY ---
Physician: Laurel Howard MD DATE OF ADMISSION: 12/10/2017 DATE OF DISCHARGE: 12/17/2017 HISTORY OF PRESENT ILLNESS: This is a 72-year-old white female with a history of acute myelogenous leukemia, has undergone 2 rounds of chemotherapy, she required admission here 1 month previously for neutropenic fever and was found to have right-sided facial cellulitis, discharged home with a PICC line and was set up for IV antibiotics via PICC line coming to the Oncology MAC clinic here. The patient has now had her second course of chemotherapy and again developed fevers as high as 38.5, was advised admission via the emergency room. The patient was feeling weak and tired and did complain of a sore tongue, but had no other localizing findings. HOSPITAL COURSE AND DISCHARGE DIAGNOSES 1. Facial cellulitis. Reading into her stay, the patient developed left cheek swelling that was firm, mildly tender, without erythema. She reported that the previous night , she had for the first time inserted her mouthguard that she uses for a crossbite. The mouthguard helps the pain of the tongue on the right side; however, it had created new swelling of her left cheek. After review of her use, the patient has not used this mouthguard since the last admission, only used it the night before the new left facial swelling. She also reports that she only cleans it with antibacterial hand soap and water rinses and does not use the prescribed cleaning powder to make a liquid, as prescribed by her dentist. The patient was started on antibiotics empirically earlier in the course. With a concern for anaerobic mouth organisms , she was put on clindamycin intravenous, had rapid improvement in this swelling and pain, and was discharged home with a course of p.o. clindamycin to continue for 10 days. With this, she was also given a 14-day course of Florastor. 2. Neutropenic fever. The patient had womack cultures, blood, urine, which were all negative throughout the entire stay. She had been placed on empiric antibiotics with intravenous vancomycin, intravenous cefepime and intravenous clindamycin in the last 2 days , stopping the vancomycin. The patient received Tylenol for the first 2 days to treat the fever. This was then discontinued in order to follow if she had fever spikes. The fever stopped the day before discharge. 3. Pancytopenia. The patient's lab values showed admission white blood count of 0.1 with 0 absolute neutrophil count, hemoglobin of 7.2, platelet count of 18.5. She had CBC labs drawn every day. When the hemoglobin was at 5.9, she received 2 units packed red blood cells. When the platelet count was 9, she received a super pack of platelets. Her hemoglobin again dropped to 6.3 and she required 2 more units of packed red blood cells. On the day of discharge, her white blood count was 0.4, hemoglobin 7.1, platelet count 11. The patient was offered to have a followup CBC while here since she was nearly low enough to require another blood transfusion and another super pack of platelets, but the patient requested that these be done in [facility] for followup. She was advised to go to [facility] the day after discharge for a CBC and possible transfusions which she agreed to do. 4. Acute myelogenous leukemia. The patient was status post a second round of chemotherapy causing the above diagnoses. 5. Oral thrush. The patient's initial complaint was of tongue pain, it was black, she was already on Diflucan daily but was given clotrimazole lozenges here. She had improvement in the pain using extended release oxycodone when Tylenol was discontinued. Her tongue appeared nearly normal except a minimal white film on the day of discharge. LABORATORY AND IMAGING: Reviewed and summarized above. ALLERGIES 1. AMOXICILLIN. 2. LATEX. 3. LEVOFLOXACIN. 4. PENICILLIN. PHYSICAL EXAMINATION AT DISCHARGE VITAL SIGNS: Blood pressure 131/47, pulse of 72 in sinus rhythm, temperature of 36.7, and afebrile for the last 24 hours. Room air saturation 96%. HEENT: This revealed alopecia, moist oral mucosa. Her tongue on its dorsal surface had a white film and the right lateral tongue also had a white film where her crossbite caused an abrasion. The left cheek had minimal firm swelling without erythema or tenderness. NECK: Without JVD, lymphadenopathy, or carotid bruits. CHEST: Clear. HEART: Sounds normal. ABDOMEN: Soft. No organomegaly. Nontender. Normal bowel sounds. EXTREMITIES: Without edema. NEUROLOGIC: Intact. FOLLOWUP: The patient is advised to see her PCP in followup within a week for refills of any pain medications and to see [facility] in 1 day for a CBC and further management. CODE STATUS: FULL CODE. Time required to complete this entire discharge, dictation, chart review, medication orders: 60 minutes. TD: 12/17/2017 19:14 SARAH
== END 2017-12-17 13:03 | disposition home or self-care (01) | DRG 809 ==
LOC: ED 20:58 → MS2 23:41 → MS3 12-12 13:06
PROVIDERS: ADMIT Internal Medicine; ATTEND Internal Medicine
PROC: 30243N1 Transfusion of Nonautologous Red Blood Cells into Central Vein, Percutaneous Approach (ICD-10-PCS; principal; 2017-12-11)
PROC: 30243R1 Transfusion of Nonautologous Platelets into Central Vein, Percutaneous Approach (ICD-10-PCS; 2017-12-12)
DX: D70.9 Neutropenia, unspecified (principal); D70.1 Agranulocytosis secondary to cancer chemotherapy; C92.00 Acute myeloblastic leukemia, not having achieved remission; L03.211 Cellulitis of face; B37.0 Candidal stomatitis; E87.1 Hypo-osmolality and hyponatremia; K13.79 Other lesions of oral mucosa; R50.81 Fever presenting with conditions classified elsewhere; D69.59 Other secondary thrombocytopenia; T45.1X5A Adverse effect of antineoplastic and immunosuppressive drugs, initial encounter; Z95.828 Presence of other vascular implants and grafts; Z79.899 Other long term (current) drug therapy
CPT/HCPCS: 36415; 70487; 71045; 80048; 80053; 81001; 81003; 83605; 83690; 83880; 85025; 86850; 86900; 86901; 86920; 87040; 87086; 87275; 87276; 99233; 99283; 99285

== ENCOUNTER 2018-04-24 17:58 | Outpatient (CLI) | payer MEDICARE, BC ==
--- NOTE | 2018-04-25 00:10 | Ultrasound Report ---
Reason: AML, PAIN Procedure Date: 04/24/2018 Accession Number: [id number] / [id number] Procedure: US - Duplex Ext Veins Right CPT Code: FULL RESULT: EXAM: RIGHT LOWER EXTREMITY VENOUS ULTRASOUND EXAM DATE: 04/24/2018 07:12 PM. CLINICAL HISTORY: AML, pain. COMPARISON: None. TECHNIQUE: Real-time sonographic vascular imaging was performed by the pantomimist through the lower extremity utilizing both color-flow and Doppler spectral analysis. Multiple strategic partnership representative static images were saved for review. FINDINGS: Common Femoral Vein (CFV): Normal. CFV-GSV Junction: Normal. Profunda Femoral Vein (PFV): Normal. Femoral Vein (FV) Prox: Normal. Femoral Vein (FV) Mid: Normal. Femoral Vein (FV) Dist: Normal. Popliteal Vein: Normal. Posterior Tibial Veins: Normal. Peroneal Veins: Normal. Contralateral Side CFV: Normal. Other: None. IMPRESSION: No evidence for deep venous thrombosis. RADIA
== END 2018-04-24 17:59 | disposition home or self-care (01) ==
LOC: DI 17:58
PROVIDERS: ATTEND Internal Medicine
DX: M79.604 Pain in right leg (principal); C92.00 Acute myeloblastic leukemia, not having achieved remission

== ENCOUNTER 2018-05-19 13:12 | Emergency (ER) | payer MEDICARE, BC ==
--- NOTE | 2018-05-19 13:37 | ED Physician Documentation ---
PD HPI FEMALE - Stated complaint Stated Complaint: FM /FEVER - Chief complaint Chief Complaint: UTI - History obtained from History obtained from: Patient, Family - History of Present Illness Timing - onset: Yesterday (72-year-old woman with history of AML on main although currently on a break because of some low blood counts. She has blood counts with her from 4 days ago showing a total white count of 1.7 and neutrophil count of 1.2. She developed urinary frequency and dysuria since yesterday with fevers of 100.8 overnight.) Review of Systems Ten Systems: 10 systems reviewed and negative Constitutional: reports: Fever, Chills, Fatigue Throat: denies: Sore throat GI: denies: Abdominal Pain, Nausea, Vomiting PD PAST MEDICAL HISTORY - Past Medical History Cardiovascular: None Respiratory: None Neuro: None Endocrine/Autoimmune: None GI: None : None HEENT: None Psych: None Musculoskeletal: None Derm: None - Past Surgical History Past Surgical History: Yes General: Appendectomy HEENT: Tonsil/Adenoidectomy - Present Medications Home Medications: Ambulatory Orders Medication Instructions Recorded Confirmed RX: Cholecalciferol (Vitamin D3) 2,000 unit PO DAILY 07/17/17 03/27/18 [Vitamin D3] - Allergies Allergies/Adverse Reactions: Allergies Allergy/AdvReac Type Severity Reaction Status Date / Time amoxicillin Allergy Unknown Verified 12/10/17 21:30 latex Allergy Unknown Verified 12/10/17 21:30 levofloxacin Allergy Unknown Verified 12/10/17 21:30 Penicillins Allergy Unknown Verified 05/19/18 13:19 - Social History Does the pt smoke?: No Smoking Status: Never smoker Does the pt drink ETOH?: Yes Does the pt have substance abuse?: No - Family History Family history: reports: Non contributory - POLST Patient has POLST: No POLST Status: Full Code PD ED PE NORMAL - Vitals Vital signs reviewed: Yes - General General: Alert and oriented X 3, No acute distress - HEENT HEENT: PERRL, EOMI - Neck Neck: Supple, no meningeal sign, No bony TTP - Cardiac Cardiac: RRR, No murmur - Respiratory Respiratory: No respiratory distress, Clear bilaterally - Abdomen Abdomen: Soft, Non tender - Back Back: No CVA TTP - Derm Derm: Normal color, Warm and dry - Neuro Neuro: Alert and oriented X 3, Normal speech - Psych Psych: Normal mood, Normal affect Results - Vitals Vitals: Vital Signs - 24 hr 05/19/18 05/19/18 05/19/18 13:17 15:32 17:42 Temperature 37.1 C 37.1 C Heart Rate 81 70 69 Respiratory 16 16 16 Rate Blood Pressure 145/62 H 134/60 H 140/63 H O2 Saturation 94 95 97 Oxygen O2 Source Room air - Labs Labs: Laboratory Tests 05/19/18 05/19/18 05/19/18 13:25 13:48 13:48 WBC 13.4 H RBC 2.65 L Hgb 10.2 L Hct 28.4 L MCV 106.8 H MCH 38.4 H MCHC 35.9 RDW 15.9 H Plt Count 20 L* MPV 5.7 L Neut # (Auto) Not Reportable Lymph # (Auto) Not Reportable Person # (Auto) Not Reportable Eos # (Auto) Not Reportable Baso # (Auto) Not Reportable Absolute Nucleated RBC Not Reportable Total Counted 100 Band Neuts % (Manual) 0 Abnorm Lymph % (Manual) 0 Promyelocytes % 3 H Blast Cells % 60 H* Nucleated RBC % Not Reportable Neutrophils # (Manual) 0.4 L* Lymphocytes # (Manual) 4.0 H Monocytes # (Manual) 0.4 Eosinophils # (Manual) 0.1 Basophils # (Manual) 0.0 Nucleated RBCs 1 Differential Comment MANUAL DIFFERENTIAL WBC Morphology 1+ MARYURI RODS RBC Morph Micro Appear 1+ MACROCYTOSIS Sodium 137 Potassium 3.1 L Chloride 103 Carbon Dioxide 27 Anion Gap 7.0 BUN 10 Creatinine 0.6 Estimated GFR (MDRD) 98 Glucose 200 H Lactic Acid Calcium 8.5 Total Bilirubin 0.6 AST 39 ALT 28 Alkaline Phosphatase 75 Total Protein 5.9 L Albumin 3.8 Globulin 2.1 Albumin/Globulin Ratio 1.8 Lipase 29 Urine Color DK. ORANGE Urine Clarity CLEAR Urine pH Ur Specific [place] Urine Protein Urine Glucose (UA) Urine Ketones Urine Occult Blood Urine Nitrite Urine Bilirubin COLOR INTERFERENCE Urine Urobilinogen Ur Leukocyte Esterase Urine RBC 11-25 H Urine WBC >25 H Urine WBC Clumps PRESENT Ur Squamous Epith Cells RARE Squamous Urine Bacteria Many H Urine Casts 0-2 Cellular Casts Urine Mucus Marked Strands Ur Microscopic Review INDICATED Urine Culture Comments INDICATED Slides for Path Review Indicated 05/19/18 13:48 WBC RBC Hgb Hct MCV MCH MCHC RDW Plt Count MPV Neut # (Auto) Lymph # (Auto) Person # (Auto) Eos # (Auto) Baso # (Auto) Absolute Nucleated RBC Total Counted Band Neuts % (Manual) Abnorm Lymph % (Manual) Promyelocytes % Blast Cells % Nucleated RBC % Neutrophils # (Manual) Lymphocytes # (Manual) Monocytes # (Manual) Eosinophils # (Manual) Basophils # (Manual) Nucleated RBCs Differential Comment WBC Morphology RBC Morph Micro Appear Sodium Potassium Chloride Carbon Dioxide Anion Gap BUN Creatinine Estimated GFR (MDRD) Glucose Lactic Acid 1.3 Calcium Total Bilirubin AST ALT Alkaline Phosphatase Total Protein Albumin Globulin Albumin/Globulin Ratio Lipase Urine Color Urine Clarity Urine pH Ur Specific [place] Urine Protein Urine Glucose (UA) Urine Ketones Urine Occult Blood Urine Nitrite Urine Bilirubin Urine Urobilinogen Ur Leukocyte Esterase Urine RBC Urine WBC Urine WBC Clumps Ur Squamous Epith Cells Urine Bacteria Urine Casts Urine Mucus Ur Microscopic Review Urine Culture Comments Slides for Path Review PD MEDICAL DECISION MAKING - ED course ED course: Acute UTI symptoms and a fever overnight to 100.4. She has been neutropenic with her chemotherapy in the past and although she was hesitant to get blood work done because she is traveling in a few days she did submit to it. The blood work is concerning and shows an elevated white blood cell count to 12,000 but also significant blasts and still neutropenia. Cultures had already been drawn. An IV was placed and cefepime was chosen based on prior positive pseudomonal blood cultures pending oncology consultation. [facility] oncology was called at 3 PM for consult and likely transfer given that she varsha ears to be going back into blast crisis associated with neutropenic fever and UTI. Dr. Wright called me back at 3:50 PM and I presented the case and he will consult and defers to hospitalist in [place] for admission and agrees with cefepime in the interim pending cultures. The hospitalist called me, they note that they are not the primary admitting for service for blast crisis and will discuss the case herself with the oncologist and then [facility] will call me back. Kath did call back and confirmed that Dr. Wright is the accepting physician and cobras were completed. Departure - Departure Disposition: 02 Transfer Acute Care Hosp Clinical Impression: Acute myelogenous leukemia, Febrile neutropenia, Urinary tract infection Condition: Serious Forms: Activity restrictions Discharge Date/Time: 05/19/18 17:54
[2018-05-19 13:39] LABS: CLARITY,URINE CLEAR (CLEAR)
[2018-05-19 13:40] LABS: BILIRUBIN,URINE COLOR INTERFERENCE (NEGATIVE)
[2018-05-19 13:52] LABS: BACTERIA,URINE Many /HPF (None Seen); MUCUS,URINE Marked Strands; SQUAMOUS EPITHELIAL CELL,UR RARE Squamous (<= Few); WBC CLUMPS,URINE PRESENT
[2018-05-19 14:02] LABS: BASOPHILS % (AUTO) 0.1 %; EOSINOPHILS % (AUTO) 0.8 %; HGB - HEMOGLOBIN 10.2 g/dL (12.0-16.0); LYMPHOCYTES % (AUTO) 4.9 %; MEAN CORPUSCULAR HEMOGLOBIN 38.4 pg (27.0-31.0); MEAN CORPUSCULAR HGB CONC 35.9 g/dL (32.0-36.0); MEAN CORPUSCULAR VOLUME 106.8 fL (81.0-99.0); MEAN PLATELET VOLUME 5.7 fL (7.9-10.8); MONOCYTES % (AUTO) 87.7 %; NEUTROPHILS % (AUTO) 6.5 %; RED BLOOD COUNT 2.65 10^6/uL (4.20-5.40); RED CELL DISTRIBUTION WIDTH 15.9 % (12.0-15.0); WHITE BLOOD COUNT 13.4 x10^3/uL (4.8-10.8)
[2018-05-19 14:07] LABS: PLT - PLATELET COUNT 20 10^3/uL (130-450)
[2018-05-19 14:10] LABS: ABNORMAL LYMPHS % (MANUAL) 0 %; ALBUMIN 3.8 g/dL (3.2-5.5); ALBUMIN/GLOBULIN RATIO 1.8 (1.0-2.2); BAND NEUTROPHILS % (MANUAL) 0 %; BILIRUBIN,TOTAL 0.6 mg/dL (0.2-1.0); CALCIUM 8.5 mg/dL (8.5-10.3); CREATININE 0.6 mg/dL (0.4-1.0); TOTAL PROTEIN 5.9 g/dL (6.7-8.2)
[2018-05-19 14:46] LABS: EOSINOPHILS # (MANUAL) 0.1 10^3/uL (0-0.7); LYMPHOCYTES % (MANUAL) 30 %; MONOCYTES # (MANUAL) 0.4 10^3/uL (0.0-1.0); NEUTROPHILS % (MANUAL) 3 %; PROMYELOCYTES % (MANUAL) 3 %
[2018-05-19 14:52] LABS: DIFFERENTIAL COMMENT MANUAL DIFFERENTIAL
[2018-05-19 14:58] LABS: NEUTROPHILS # (MANUAL) 0.4 10^3/uL (1.5-6.6)
[2018-05-19] MEDS ORDERED: CEFEPIME 2 GM in SODIUM CHLORIDE 0.9% MINIBAG 100 ML IV STA (14:58)
[2018-05-19 15:01] LABS: RBC MORPHOLOGY (MULTIPLE) 1+ MACROCYTOSIS (NORMAL)
[2018-05-19] MEDS ORDERED: PHENAZOPYRIDINE 100 MG TABLET PO STA (15:57)
[2018-05-19 17:43] VITALS: BP 140/63
== END 2018-05-19 17:54 | disposition short-term general hospital (02) ==
LOC: ED 13:12
DX: C92.00 Acute myeloblastic leukemia, not having achieved remission (principal); D70.9 Neutropenia, unspecified; R50.81 Fever presenting with conditions classified elsewhere; N39.0 Urinary tract infection, site not specified
CPT/HCPCS: 36415; 80053; 81001; 83605; 83690; 85025; 87040; 87086; 96365; 99283; 99285; A9270; 81003; 99284

== ENCOUNTER 2018-05-19 17:51 | Outpatient (CLI) | payer MEDICARE, BC | END 2018-05-19 17:52 | disposition short-term general hospital (02) | LOC: EMS 17:51 | PROVIDERS: ATTEND Surgery | DX: C92.00 Acute myeloblastic leukemia, not having achieved remission (principal); D70.9 Neutropenia, unspecified; R50.81 Fever presenting with conditions classified elsewhere; N39.0 Urinary tract infection, site not specified | CPT/HCPCS: A0425; A0428 ==